=== PATIENT | male | born 1980 | race Caucasian/White ===

== ENCOUNTER 2019-02-05 19:17 | Inpatient (IN) | payer MEDICARE, OTHER ==
[~2019-02-05] VITALS: Ht 175.3 cm; Wt 77.6 kg
[~2019-02-05 19:17] MED LIST: ETOMIDATE 2 MG/ML 10 ML VIAL IVP ONE; ROCURONIUM BROMIDE 10 MG/ML 5 ML VIAL IVP ONE
[2019-02-05 20:00] LABS: BASOPHILS % (AUTO) 0.7 % (0.0-2.0); EOSINOPHILS % (AUTO) 1.2 % (1.0-6.0); HEMATOCRIT 48.2 % (41-53); HEMOGLOBIN 16.2 g/dL (13.5-17.5); LYMPHOCYTES # (AUTO) 1.6 K/uL (1.0-4.8); LYMPHOCYTES % (AUTO) 24.9 % (22.0-44.0); MEAN CORPUSCULAR HEMOGLOBIN 30.9 pg (26.0-34.0); MEAN CORPUSCULAR HGB CONC 33.7 G/dL (31.0-37.0); MEAN CORPUSCULAR VOLUME 91 fL (80-100); MONOCYTES # (AUTO) 0.4 K/uL (0.1-1.0); NEUTROPHILS # (AUTO) 4.3 K/uL (1.8-7.7); NEUTROPHILS % (AUTO) 67.2 % (40.0-70.0); PLATELET COUNT (AUTO) 345 K/uL (150-450); RED BLOOD CELL COUNT(AUTO) 5.27 MIL/uL (4.50-5.90); RED CELL DISTRIBUTION WIDTH 13.7 % (11.5-14.5)
[2019-02-05 20:18] LABS: ANION GAP 12 mmol/L (8-16); CALCIUM, TOTAL 9.1 mg/dL (8.8-10.5); CARBON DIOXIDE 28 mmol/L (22-29); CHLORIDE 103 mmol/L (98-107); CREATININE 0.93 mg/dL (0.60-1.30); GLOMERULAR FILTR. RATE CALC > 60 mL/min (>60); GLUCOSE,RANDOM 146 mg/dL (70-110); POTASSIUM 3.4 mmol/L (3.5-5.1); SODIUM SERUM 143 mmol/L (136-145); UREA NITROGEN, BLOOD 9 mg/dL (7-18)
[2019-02-05] MEDS ORDERED: CLOZ100 PO (20:20)
[2019-02-05 20:23] LABS: ALANINE AMINOTRANSFERASE 43 U/L (12-78); ALBUMIN 4.2 g/dL (3.4-5.0); ALKALINE PHOSPHATASE 150 U/L (46-116); ASPARTATE AMINOTRANSFERASE 24 U/L (15-37); BILIRUBIN,TOTAL 0.2 mg/dL (0.1-1.0); TOTAL PROTEIN, SERUM 7.7 g/dL (6.4-8.2)
[2019-02-05 20:47] LABS: ACETAMINOPHEN < 2 mcg/mL (10-30); SALICYLATE < 2.8 mg/dL (2.8-20.0)
[2019-02-05] MEDS ORDERED: SODIUM BICARBONATE 150 MEQ in DEXTROSE 5%-WATER 1,000 ML IV ONE (21:15)
[2019-02-05 21:18] LABS: AMPHET/METH SCREEN,URINE NEGATIVE (NEGATIVE); BARBITURATE SCREEN, URINE NEGATIVE (NEGATIVE); BENZODIAZEPINES SCREEN,URINE NEGATIVE (NEGATIVE); CANNABINOID SCREEN,URINE NEGATIVE (NEGATIVE); COCAINE SCREEN,URINE NEGATIVE (NEGATIVE); METHADONE SCREEN, URINE NEGATIVE (NEGATIVE); OPIATE SCREEN,URINE NEGATIVE (NEGATIVE)
[2019-02-05 21:20] LABS: PHENCYCLIDINE SCREEN,URINE NEGATIVE (NEGATIVE)
[2019-02-05] MEDS ORDERED: DiphenhydrAMINE HCL 50 MG/ML VIAL IVP STA (21:20)
[2019-02-05] MEDS ORDERED: ONDANSETRON HCL 4 MG/2 ML VIAL IVP PRN ×2 (21:30→21:45)
[2019-02-05] MEDS ORDERED: POTASSIUM CHLORIDE 20 MEQ ER TABLET PO PRN (21:45)
[2019-02-05] MEDS ORDERED: ACETAMINOPHEN 325 MG TABLET PO PRN (21:45)
[2019-02-05] MEDS ORDERED: MAGNESIUM SULFATE 2 GM/WATER 50 ML IV ONE (21:45)
[2019-02-05] MEDS ORDERED: POTASSIUM CHL 10 MEQ/WATER 50 ML IV ONE (21:45)
[2019-02-05 21:52] LABS: CREATINE KINASE, TOTAL ONLY 93 U/L (39-308)
[2019-02-05] MEDS ORDERED: RAPID SEQUENCE KIT [RSI] 1 EACH KIT ONE (23:19)
[2019-02-05] MEDS ORDERED: ROCURONIUM BROMIDE 10 MG/ML 5 ML VIAL ONE (23:20)
[2019-02-06] MEDS: PROPOFOL 1000 MG/ISO-OSM 100 ML IV PRN ×4 (00:21→19:00)
[2019-02-06] MEDS ORDERED: MIDAZOLAM HCL 2 MG/2 ML VIAL ONE (01:11)
[2019-02-06] MEDS ORDERED: FentaNYL CITRATE-PF 100 MCG/2 ML VIAL ONE (01:41)
[2019-02-06] MEDS ORDERED: MIDAZOLAM HCL 2 MG/2 ML VIAL IVP ONE (01:45)
[2019-02-06] MEDS: POTASSIUM CHL 10 MEQ/WATER 50 ML IV PRN ×2 (02:09→03:11)
[2019-02-06] MEDS ORDERED: FentaNYL CITRATE-PF 100 MCG/2 ML VIAL IVP ONE (02:15)
[2019-02-06] MEDS ORDERED: DiphenhydrAMINE HCL 50 MG/ML VIAL IVP STA (03:50)
[2019-02-06 04:22] LABS: ABG BASE EXCESS -3.2 mmol/L (-2.0-3.0); ABG CARBOXYHEMOGLOBIN 0.8 % (0.0-1.5); ABG HCO3 22.4 mmol/L (22.0-26.0); ABG METHEMOGLOBIN 0.3 % (0.0-1.5); ABG OXYGEN CONTENT 20.2 mL/dL (15.0-23.0); ABG OXYHEMOGLOBIN 97.9 % (94.0-100.0); ABG PCO2 38 mmHg (35-45); ABG PH 7.381 (7.350-7.450); ABG TOTAL HEMOGLOBIN 14.5 G/dL (12.0-18.0); PO2, ARTERIAL BG 156.9 mmHg (92.0-100.0); SOURCE, BLOOD GAS ARTERIAL
[2019-02-06 04:23] LABS: O2 DEVICE,BLOOD GAS VENTILATOR (ROOM AIR); PEEP,BG 5 cm H2O; SITE, BLOOD GAS RT RADIAL; VT, ABG 500 ml
[2019-02-06 05:31] LABS: BASOPHILS % (AUTO) 0.2 % (0.0-2.0); EOSINOPHILS % (AUTO) 0.1 % (1.0-6.0); HEMATOCRIT 40.5 % (41-53); HEMOGLOBIN 13.5 g/dL (13.5-17.5); LYMPHOCYTES # (AUTO) 0.9 K/uL (1.0-4.8); LYMPHOCYTES % (AUTO) 5.4 % (22.0-44.0); MEAN CORPUSCULAR HEMOGLOBIN 30.4 pg (26.0-34.0); MEAN CORPUSCULAR HGB CONC 33.5 G/dL (31.0-37.0); MEAN CORPUSCULAR VOLUME 91 fL (80-100); PLATELET COUNT (AUTO) 307 K/uL (150-450); RED BLOOD CELL COUNT(AUTO) 4.46 MIL/uL (4.50-5.90); RED CELL DISTRIBUTION WIDTH 13.9 % (11.5-14.5)
[2019-02-06 05:34] LABS: ANION GAP 8 mmol/L (8-16); CALCIUM, TOTAL 7.9 mg/dL (8.8-10.5); CARBON DIOXIDE 26 mmol/L (22-29); CHLORIDE 107 mmol/L (98-107); CREATININE 0.89 mg/dL (0.60-1.30); GLOMERULAR FILTR. RATE CALC > 60 mL/min (>60); GLUCOSE,RANDOM 98 mg/dL (70-110); POTASSIUM 4.3 mmol/L (3.5-5.1); SALICYLATE < 2.8 mg/dL (2.8-20.0); SODIUM SERUM 141 mmol/L (136-145); UREA NITROGEN, BLOOD 9 mg/dL (7-18)
[2019-02-06 05:35] LABS: NEUTROPHILS % (AUTO) 88.3 % (40.0-70.0)
[2019-02-06 05:39] LABS: ALANINE AMINOTRANSFERASE 31 U/L (12-78); ALBUMIN 3.3 g/dL (3.4-5.0); ALKALINE PHOSPHATASE 120 U/L (46-116); ASPARTATE AMINOTRANSFERASE 21 U/L (15-37); BILIRUBIN,TOTAL 0.2 mg/dL (0.1-1.0)
[2019-02-06 05:45] LABS: ACETAMINOPHEN < 2 mcg/mL (10-30)
[2019-02-06] MEDS ORDERED: MAGNESIUM SULFATE 4 GM/WATER 100 ML IV PRN (06:00)
[2019-02-06] MEDS ORDERED: MAGNESIUM SULFATE 2 GM/WATER 50 ML IV PRN (06:00)
[2019-02-06] MEDS: MIDAZOLAM HCL 100 MG in DEXTROSE 5%-WATER 180 ML IV PRN (07:48)
[2019-02-06] MEDS: FAMOTIDINE 20 MG TABLET PO SCH (08:14)
[2019-02-06] MEDS: DOCUSATE SODIUM 100 MG CAPSULE PO SCH ×2 (08:14→21:57)
[2019-02-06] MEDS ORDERED: PROPOFOL 1000 MG/ISO-OSM 100 ML IV PRN (10:00)
[2019-02-06 10:45] VITALS: BP 99/72
[2019-02-06 12:00] VITALS: BP 107/66
[2019-02-06] MEDS: DEXTROSE 5%-0.45% SODIUM CHL 1,000 ML IV SCH (15:53)
[2019-02-06 16:00] VITALS: BP 101/63
[2019-02-06 20:00] VITALS: BP 107/62
[2019-02-07] VITALS: BP 125/64
[2019-02-07] MEDS: PROPOFOL 1000 MG/ISO-OSM 100 ML IV PRN ×6 (00:15→20:15)
[2019-02-07 04:00] VITALS: BP 123/81
[2019-02-07] MEDS: DEXTROSE 5%-0.45% SODIUM CHL 1,000 ML IV SCH ×2 (04:31→17:58)
[2019-02-07 05:31] LABS: BASOPHILS % (AUTO) 0.3 % (0.0-2.0); EOSINOPHILS % (AUTO) 1.3 % (1.0-6.0); HEMATOCRIT 42.7 % (41-53); HEMOGLOBIN 14.1 g/dL (13.5-17.5); LYMPHOCYTES % (AUTO) 10.3 % (22.0-44.0); MEAN CORPUSCULAR HEMOGLOBIN 30.5 pg (26.0-34.0); MEAN CORPUSCULAR HGB CONC 32.9 G/dL (31.0-37.0); MEAN CORPUSCULAR VOLUME 93 fL (80-100); MONOCYTES % (AUTO) 10.2 % (2.0-9.0); NEUTROPHILS # (AUTO) 7.7 K/uL (1.8-7.7); NEUTROPHILS % (AUTO) 77.9 % (40.0-70.0); PLATELET COUNT (AUTO) 265 K/uL (150-450); RED BLOOD CELL COUNT(AUTO) 4.61 MIL/uL (4.50-5.90); RED CELL DISTRIBUTION WIDTH 13.6 % (11.5-14.5)
[2019-02-07 05:39] LABS: ANION GAP 6 mmol/L (8-16); CALCIUM, TOTAL 8.6 mg/dL (8.8-10.5); CARBON DIOXIDE 29 mmol/L (22-29); CHLORIDE 106 mmol/L (98-107); GLOMERULAR FILTR. RATE CALC > 60 mL/min (>60); GLUCOSE,RANDOM 160 mg/dL (70-110); POTASSIUM 3.8 mmol/L (3.5-5.1); SODIUM SERUM 141 mmol/L (136-145); UREA NITROGEN, BLOOD 6 mg/dL (7-18)
[2019-02-07 08:00] VITALS: BP 110/65
[2019-02-07] MEDS: FAMOTIDINE 20 MG TABLET PO SCH (09:02)
[2019-02-07] MEDS: DOCUSATE SODIUM 100 MG CAPSULE PO SCH ×2 (09:02→21:27)
[2019-02-07 12:00] VITALS: BP 137/89
[2019-02-07 16:00] VITALS: BP 140/82
[2019-02-07] MEDS: MIDAZOLAM HCL 100 MG in DEXTROSE 5%-WATER 180 ML IV PRN (16:23)
[2019-02-07] MEDS: ACETAMINOPHEN 325 MG TABLET PO PRN (17:35)
[2019-02-07 20:00] VITALS: BP 119/70
[2019-02-08] VITALS: BP 120/71
[2019-02-08] MEDS: PROPOFOL 1000 MG/ISO-OSM 100 ML IV PRN ×4 (00:12→11:02)
[2019-02-08 04:00] VITALS: BP 115/65
[2019-02-08 05:53] LABS: ANION GAP 5 mmol/L (8-16); CALCIUM, TOTAL 8.6 mg/dL (8.8-10.5); CARBON DIOXIDE 30 mmol/L (22-29); CHLORIDE 103 mmol/L (98-107); CREATININE 0.52 mg/dL (0.60-1.30); GLOMERULAR FILTR. RATE CALC > 60 mL/min (>60); GLUCOSE,RANDOM 106 mg/dL (70-110); POTASSIUM 4.1 mmol/L (3.5-5.1); SODIUM SERUM 138 mmol/L (136-145); UREA NITROGEN, BLOOD 5 mg/dL (7-18)
[2019-02-08] MEDS: DEXTROSE 5%-0.45% SODIUM CHL 1,000 ML IV SCH (06:56)
[2019-02-08 08:00] VITALS: BP 127/68
[2019-02-08] MEDS: DOCUSATE SODIUM 100 MG CAPSULE PO SCH ×2 (08:00→20:53)
[2019-02-08] MEDS: FAMOTIDINE 20 MG TABLET PO SCH (08:00)
[2019-02-08 08:18] LABS: ABG BASE EXCESS 1.9 mmol/L (-2.0-3.0); ABG CARBOXYHEMOGLOBIN 0.7 % (0.0-1.5); ABG HCO3 25.9 mmol/L (22.0-26.0); ABG METHEMOGLOBIN 0.3 % (0.0-1.5); ABG OXYGEN CONTENT 20.3 mL/dL (15.0-23.0); ABG OXYGEN SATURATION 98.9 % (95.0-98.0); ABG OXYHEMOGLOBIN 97.9 % (94.0-100.0); ABG PCO2 44 mmHg (35-45); ABG PH 7.402 (7.350-7.450); ABG TOTAL HEMOGLOBIN 14.6 G/dL (12.0-18.0); PO2, ARTERIAL BG 147.2 mmHg (92.0-100.0); SOURCE, BLOOD GAS ARTERIAL; TEMPERATURE, FAHRENHEIT, BG 99.5 FAHREN (96.0-98.6)
[2019-02-08 08:19] LABS: O2 DEVICE,BLOOD GAS VENTILATOR (ROOM AIR); PEEP,BG 5 cm H2O; SITE, BLOOD GAS RT RADIAL; SPONTANEOUS VT, BG 497 ml; VT, ABG 500 ml
[2019-02-08 10:12] LABS: BASOPHILS % (AUTO) 0.1 % (0.0-2.0); EOSINOPHILS % (AUTO) 1.8 % (1.0-6.0); HEMATOCRIT 43.8 % (41-53); HEMOGLOBIN 14.7 g/dL (13.5-17.5); LYMPHOCYTES # (AUTO) 0.7 K/uL (1.0-4.8); LYMPHOCYTES % (AUTO) 7.4 % (22.0-44.0); MEAN CORPUSCULAR HEMOGLOBIN 31.1 pg (26.0-34.0); MEAN CORPUSCULAR HGB CONC 33.6 G/dL (31.0-37.0); MEAN CORPUSCULAR VOLUME 93 fL (80-100); MONOCYTES # (AUTO) 0.7 K/uL (0.1-1.0); MONOCYTES % (AUTO) 7.5 % (2.0-9.0); NEUTROPHILS # (AUTO) 8.2 K/uL (1.8-7.7); NEUTROPHILS % (AUTO) 83.2 % (40.0-70.0); PLATELET COUNT (AUTO) 257 K/uL (150-450); RED BLOOD CELL COUNT(AUTO) 4.73 MIL/uL (4.50-5.90); RED CELL DISTRIBUTION WIDTH 13.6 % (11.5-14.5)
[2019-02-08 12:00] VITALS: BP 124/76
[2019-02-08] MEDS: ACETAMINOPHEN 325 MG TABLET PO PRN (12:01)
[2019-02-08 13:47] LABS: ABG A-A DIFF O2 79.1 mmHg (10-20.0); ABG BASE EXCESS 4.5 mmol/L (-2.0-3.0); ABG METHEMOGLOBIN 0.3 % (0.0-1.5); ABG OXYGEN CONTENT 20.1 mL/dL (15.0-23.0); ABG OXYGEN SATURATION 98.6 % (95.0-98.0); ABG OXYHEMOGLOBIN 97.3 % (94.0-100.0); ABG PCO2 44 mmHg (35-45); ABG PH 7.434 (7.350-7.450); ABG TOTAL HEMOGLOBIN 14.6 G/dL (12.0-18.0); O2 DEVICE,BLOOD GAS VENTILATOR (ROOM AIR); PO2, ARTERIAL BG 118.8 mmHg (92.0-100.0); SITE, BLOOD GAS RT RADIAL; SOURCE, BLOOD GAS ARTERIAL; TEMPERATURE, FAHRENHEIT, BG 99.5 FAHREN (96.0-98.6)
[2019-02-08 13:48] LABS: PEEP,BG 0 cm H2O; PRESSURE SUPPORT, BG 10 cm H2O; SPONTANEOUS VT, BG 517 ml; VENT MODE, BG SPONTANEOUS (ROOM AIR)
[2019-02-08] MEDS: PIPERACILLIN/TAZO 3.375 GM/D5W 50 ML IV SCH ×2 (14:58→21:35)
[2019-02-08 16:00] VITALS: BP 132/76
[2019-02-08] MEDS ORDERED: LORazepam 2 MG/ML VIAL IVP PRN (17:00)
[2019-02-08] MEDS: NICOTINE 21 MG/24 HOUR PATCH TD SCH (19:29)
[2019-02-08] MEDS: LORazepam 2 MG TABLET PO PRN ×2 (19:30→23:02)
[2019-02-08 20:01] VITALS: BP 131/72
[2019-02-09 00:02] VITALS: BP 134/73
[2019-02-09] MEDS: PIPERACILLIN/TAZO 3.375 GM/D5W 50 ML IV SCH ×4 (02:53→20:27)
[2019-02-09] MEDS: LORazepam 2 MG TABLET PO PRN ×4 (02:58→20:26)
[2019-02-09 04:21] VITALS: BP 118/88
[2019-02-09 08:10] VITALS: BP 124/74
[2019-02-09] MEDS: FAMOTIDINE 20 MG TABLET PO SCH (09:49)
[2019-02-09] MEDS: NICOTINE 21 MG/24 HOUR PATCH TD SCH (09:49)
[2019-02-09] MEDS: DOCUSATE SODIUM 100 MG CAPSULE PO SCH ×2 (09:49→20:27)
[2019-02-09 11:21] VITALS: BP 125/64
[2019-02-09] MEDS ORDERED: PHENYTOIN SODIUM 1,000 MG in SODIUM CHLORIDE 0.9% 150 ML IV ONE (12:45)
[2019-02-09] MEDS ORDERED: LACOSAMIDE 100 MG TABLET PO ONE (12:45)
[2019-02-09] MEDS ORDERED: VANCOMYCIN HCL 1 GM/D5% WATER 200 ML IV ONE (13:00)
[2019-02-09] MEDS: VENLAFAXINE HCL 75 MG ER CAPSULE PO SCH (13:27)
[2019-02-09] MEDS: CloZAPine 100 MG TABLET PO SCH (13:27)
[2019-02-09 16:04] VITALS: BP 121/83
[2019-02-09 20:14] VITALS: BP 120/64
[2019-02-09] MEDS: LACOSAMIDE 100 MG TABLET PO SCH (20:27)
[2019-02-09] MEDS: ACETAMINOPHEN 325 MG TABLET PO PRN (20:27)
[2019-02-09] MEDS: VANCOMYCIN HCL 1 GM/D5% WATER 200 ML IV SCH (23:24)
[2019-02-10] MEDS: PIPERACILLIN/TAZO 3.375 GM/D5W 50 ML IV SCH ×3 (02:53→13:59)
[2019-02-10 03:10] VITALS: BP 106/86
[2019-02-10 06:37] LABS: ANION GAP 5 mmol/L (8-16); CALCIUM, TOTAL 8.8 mg/dL (8.8-10.5); CARBON DIOXIDE 29 mmol/L (22-29); CHLORIDE 108 mmol/L (98-107); CREATININE 0.62 mg/dL (0.60-1.30); GLOMERULAR FILTR. RATE CALC > 60 mL/min (>60); GLUCOSE,RANDOM 90 mg/dL (70-110); POTASSIUM 3.5 mmol/L (3.5-5.1); SODIUM SERUM 142 mmol/L (136-145); UREA NITROGEN, BLOOD 6 mg/dL (7-18)
[2019-02-10] MEDS: VANCOMYCIN HCL 1 GM/D5% WATER 200 ML IV SCH ×2 (06:44→14:52)
[2019-02-10 07:39] VITALS: BP 121/78
[2019-02-10] MEDS: LACOSAMIDE 100 MG TABLET PO SCH (08:32)
[2019-02-10] MEDS: FAMOTIDINE 20 MG TABLET PO SCH (08:32)
[2019-02-10] MEDS: VENLAFAXINE HCL 75 MG ER CAPSULE PO SCH (08:33)
[2019-02-10] MEDS: CloZAPine 100 MG TABLET PO SCH (08:33)
[2019-02-10] MEDS: NICOTINE 21 MG/24 HOUR PATCH TD SCH (08:35)
[2019-02-10] MEDS: DOCUSATE SODIUM 100 MG CAPSULE PO SCH (08:35)
[2019-02-10] MEDS: LORazepam 2 MG TABLET PO PRN ×2 (08:41→13:59)
[2019-02-10 11:00] VITALS: BP 128/81
[2019-02-10] MEDS ORDERED: LACO100 PO (17:48)
[2019-02-10] MEDS ORDERED: NICO-704 TD (17:49)
[2019-02-10] MEDS ORDERED: VENL-68 PO (17:51)
[2019-02-10] MEDS ORDERED: BACTDSB PO (17:55)
== END 2019-02-10 18:14 | disposition home or self-care (01) | DRG 917 ==
LOC: EMS 19:21 → ICU 02-06 07:11 → 6N 02-08 21:04
PROVIDERS: ADMIT Internal Medicine; ATTEND Internal Medicine
PROC: 5A1945Z Respiratory Ventilation, 24-96 Consecutive Hours (ICD-10-PCS; principal; 2019-02-06)
PROC: 0BH17EZ Insertion of Endotracheal Airway into Trachea, Via Natural or Artificial Opening (ICD-10-PCS; 2019-02-06)
DX: T42.4X2A Poisoning by benzodiazepines, intentional self-harm, initial encounter (principal); A41.9 Sepsis, unspecified organism; G93.41 Metabolic encephalopathy; J96.00 Acute respiratory failure, unspecified whether with hypoxia or hypercapnia; J15.211 Pneumonia due to Methicillin susceptible Staphylococcus aureus; F20.0 Paranoid schizophrenia; F32.9 Major depressive disorder, single episode, unspecified; I10 Essential (primary) hypertension; F41.9 Anxiety disorder, unspecified; Y92.89 Other specified places as the place of occurrence of the external cause; F12.90 Cannabis use, unspecified, uncomplicated; F15.90 Other stimulant use, unspecified, uncomplicated; Z79.899 Other long term (current) drug therapy
CPT/HCPCS: 36600; 82805; 83735; 87040; 87070; 87081; 87205; 93005; 94002; 94003; 96365; 96375; 99291; G0378; G0480; G0481; J1165; J1200; J2060; J2250; J2405; J2543; J2704; J3010; J3370; J3475; J3480; J3490; J7050; J7060

== ENCOUNTER 2019-04-24 13:43 | Inpatient (IN) | payer MEDICARE, MEDICAID ==
[~2019-04-24] VITALS: Ht 172.7 cm; Wt 77.7 kg
[~2019-04-24 13:43] MED LIST changes: +BACTDSB PO; +CLOZ100 PO; -ETOMIDATE 2 MG/ML 10 ML VIAL IVP ONE; +LACO100 PO; +NICO-704 TD; -ROCURONIUM BROMIDE 10 MG/ML 5 ML VIAL IVP ONE; +VENL-68 PO
[2019-04-24] MEDS ORDERED: PHENY100 PO (14:28)
[2019-04-24] MEDS ORDERED: LACO200T2 PO (14:28)
[2019-04-24] MEDS ORDERED: VENL-67 PO (14:28)
[2019-04-24] MEDS ORDERED: QUET200T29 PO (14:28)
[2019-04-24] MEDS ORDERED: BUSP10TA23 PO (14:28)
[2019-04-24] MEDS ORDERED: CLOZ100T31 PO (14:28)
[2019-04-24] MEDS ORDERED: METO50 PO (14:28)
[2019-04-24] MEDS ORDERED: SODIUM CHLORIDE 0.9% 1,000 ML IV ONE (14:45)
[2019-04-24 15:11] LABS: BASOPHILS % (AUTO) 0.7 % (0.0-2.0); HEMATOCRIT 44.8 % (41-53); HEMOGLOBIN 14.9 g/dL (13.5-17.5); LYMPHOCYTES # (AUTO) 1.3 K/uL (1.0-4.8); MEAN CORPUSCULAR HEMOGLOBIN 30.8 pg (26.0-34.0); MEAN CORPUSCULAR HGB CONC 33.3 G/dL (31.0-37.0); MEAN CORPUSCULAR VOLUME 93 fL (80-100); MONOCYTES # (AUTO) 0.4 K/uL (0.1-1.0); MONOCYTES % (AUTO) 9.3 % (2.0-9.0); NEUTROPHILS # (AUTO) 2.7 K/uL (1.8-7.7); PLATELET COUNT (AUTO) 394 K/uL (150-450); RED BLOOD CELL COUNT(AUTO) 4.83 MIL/uL (4.50-5.90)
[2019-04-24 15:23] LABS: APPEARANCE,URINE CLEAR (CLEAR); BILIRUBIN,URINE NEGATIVE (NEGATIVE); GLUCOSE, URINE (UA) NEGATIVE (NEGATIVE); KETONES,URINE NEGATIVE (NEGATIVE); LEUKOCYTE ESTERASE ,URINE NEGATIVE (NEGATIVE); NITRATE,URINE NEGATIVE (NEGATIVE); OCCULT BLOOD,URINE NEGATIVE (NEGATIVE); PH,URINE 7.5 (5.0-8.0); PROTEIN,URINE NEGATIVE (NEGATIVE)
[2019-04-24 15:37] LABS: AMPHET/METH SCREEN,URINE NEGATIVE (NEGATIVE); BARBITURATE SCREEN, URINE NEGATIVE (NEGATIVE); BENZODIAZEPINES SCREEN,URINE NEGATIVE (NEGATIVE); CANNABINOID SCREEN,URINE NEGATIVE (NEGATIVE); COCAINE SCREEN,URINE NEGATIVE (NEGATIVE); METHADONE SCREEN, URINE NEGATIVE (NEGATIVE); OPIATE SCREEN,URINE NEGATIVE (NEGATIVE)
[2019-04-24 15:38] LABS: PHENCYCLIDINE SCREEN,URINE NEGATIVE (NEGATIVE)
[2019-04-24 15:44] LABS: ANION GAP 10 mmol/L (8-16); CALCIUM, TOTAL 9.3 mg/dL (8.8-10.5); CARBON DIOXIDE 28 mmol/L (22-29); CHLORIDE 106 mmol/L (98-107); CREATININE 0.88 mg/dL (0.60-1.30); GLOMERULAR FILTR. RATE CALC > 60 mL/min (>60); GLUCOSE,RANDOM 90 mg/dL (70-110); POTASSIUM 3.9 mmol/L (3.5-5.1); SODIUM SERUM 144 mmol/L (136-145); UREA NITROGEN, BLOOD 8 mg/dL (7-18)
[2019-04-24 15:51] LABS: ALANINE AMINOTRANSFERASE 25 U/L (12-78); ALBUMIN 3.8 g/dL (3.4-5.0); ALKALINE PHOSPHATASE 123 U/L (46-116); ASPARTATE AMINOTRANSFERASE 16 U/L (15-37); BILIRUBIN,TOTAL 0.3 mg/dL (0.1-1.0); PHENYTOIN (DILANTIN) 0.9 mcg/mL (10.0-20.0); TOTAL PROTEIN, SERUM 7.2 g/dL (6.4-8.2)
[2019-04-24] MEDS ORDERED: LORazepam 2 MG/ML VIAL IVP ONE (16:45)
[2019-04-24 23:15] VITALS: BP 141/83
[2019-04-24] MEDS ORDERED: INFLUENZA VIRUS VACCINE QVS 2019-20 (3YR+)/PF 60 MCG/0.5 ML SYRINGE IM ONE (23:45)
[2019-04-25] MEDS: LORazepam 2 MG TABLET PO PRN ×2 (06:06→17:01)
[2019-04-25] MEDS: HALOPERIDOL 5 MG TABLET PO PRN ×2 (06:11→17:37)
[2019-04-25 06:15] VITALS: BP 125/75
[2019-04-25] MEDS ORDERED: ONDANSETRON HCL 4 MG TABLET PO PRN (08:00)
[2019-04-25] MEDS ORDERED: MAGNESIUM HYDROXIDE SUSPENSION 30 ML UDCUP PO PRN (08:00)
[2019-04-25] MEDS ORDERED: ACETAMINOPHEN 325 MG TABLET PO PRN (08:00)
[2019-04-25] MEDS ORDERED: MAG HYDROX/AL HYDROX/SIMETH ES 30 ML SUSPENSION UDCUP PO PRN (08:00)
[2019-04-25] MEDS ORDERED: LOPERAMIDE HCL 2 MG CAPSULE PO PRN (08:00)
[2019-04-25] MEDS ORDERED: ALBUTEROL SULFATE HFA 90 MCG/PUFF 8 GM INHALER IH PRN (08:00)
[2019-04-25] MEDS ORDERED: PETROLATUM,WHITE 28 GM JELLY TP PRN (08:00)
[2019-04-25] MEDS ORDERED: BENZOCAINE/MENTHOL LOZENGE MM PRN (08:00)
[2019-04-25] MEDS ORDERED: BACITRACIN 28.4 GM OINTMENT TP PRN (08:00)
[2019-04-25] MEDS ORDERED: IBUPROFEN 600 MG TABLET PO PRN (08:00)
[2019-04-25] MEDS ORDERED: CloNIDine HCL 0.1 MG TABLET PO PRN (08:00)
[2019-04-25] MEDS ORDERED: DOCUSATE SODIUM 100 MG CAPSULE PO PRN (08:00)
[2019-04-25] MEDS ORDERED: OMEPRAZOLE 20 MG CAPSULE PO PRN (08:00)
[2019-04-25 08:32] VITALS: BP 112/73
[2019-04-25 08:54] LABS: CHOL/HDL RATIO 3.2 (4.2-7.3)
[2019-04-25] MEDS: METOPROLOL TARTRATE 25 MG TABLET PO SCH ×2 (09:00→16:30)
[2019-04-25] MEDS ORDERED: METOPROLOL TARTRATE 50 MG TABLET PO SCH (09:00)
[2019-04-25] MEDS: NICOTINE 21 MG/24 HOUR PATCH TD SCH (09:00)
[2019-04-25 16:20] VITALS: BP 112/69
[2019-04-25] MEDS: ZOLPIDEM TARTRATE 10 MG TABLET PO PRN (20:51)
[2019-04-26 06:08] VITALS: BP 103/65
[2019-04-26] MEDS: HALOPERIDOL 5 MG TABLET PO PRN ×2 (06:43→18:54)
[2019-04-26] MEDS: LORazepam 2 MG TABLET PO PRN ×2 (07:20→17:24)
[2019-04-26 08:31] VITALS: BP 120/79
[2019-04-26] MEDS: NICOTINE 21 MG/24 HOUR PATCH TD SCH (09:00)
[2019-04-26] MEDS: CloZAPine 100 MG TABLET PO SCH (09:07)
[2019-04-26] MEDS: METOPROLOL TARTRATE 25 MG TABLET PO SCH ×2 (09:07→16:15)
[2019-04-26] MEDS ORDERED: CLOZ100 PO ×2 (13:40)
[2019-04-26] MEDS ORDERED: METO25 PO (13:40)
[2019-04-26 16:26] VITALS: BP 140/79
[2019-04-26] MEDS ORDERED: CloZAPine 100 MG TABLET PO SCH (21:00)
[2019-04-26] MEDS: ZOLPIDEM TARTRATE 10 MG TABLET PO PRN (21:08)
[2019-04-27 00:38] VITALS: BP 142/108
[2019-04-27 08:05] VITALS: BP 126/74
[2019-04-27] MEDS: NICOTINE 21 MG/24 HOUR PATCH TD SCH (09:00)
[2019-04-27] MEDS: METOPROLOL TARTRATE 25 MG TABLET PO SCH (09:16)
[2019-04-27] MEDS: CloZAPine 100 MG TABLET PO SCH (09:16)
== END 2019-04-27 14:00 | disposition home or self-care (01) | DRG 885 ==
LOC: EMS 13:45 → B2X 20:00
PROVIDERS: ADMIT Psychiatry & Neurology Psychiatry; ATTEND Psychiatry & Neurology Psychiatry
DX: F25.9 Schizoaffective disorder, unspecified (principal); F41.9 Anxiety disorder, unspecified; G47.00 Insomnia, unspecified; I10 Essential (primary) hypertension; K59.00 Constipation, unspecified
CPT/HCPCS: G0480; J2060; J7030

== ENCOUNTER 2019-08-27 10:29 | Inpatient (IN) | payer MEDICARE, MEDICAID ==
[~2019-08-27 10:29] MED LIST changes: -BACTDSB PO; -CLOZ100 PO; +CLOZ100T32 PO; -LACO100 PO; +METO25 PO; -NICO-704 TD; -VENL-68 PO
[2019-08-27] MEDS ORDERED: BUSP15 PO (15:49)
[2019-08-27] MEDS ORDERED: PHENY100 PO (15:49)
[2019-08-27] MEDS ORDERED: VENL-68 PO (15:49)
[2019-08-27] MEDS ORDERED: QUET200T PO (15:49)
[2019-08-27] MEDS ORDERED: LACO100 PO (15:49)
[2019-08-27] MEDS ORDERED: ZOLPIDEM TARTRATE 10 MG TABLET PO PRN (16:00)
[2019-08-27] MEDS ORDERED: HALOPERIDOL 5 MG TABLET PO PRN (16:00)
[2019-08-27] MEDS ORDERED: LORazepam 2 MG TABLET PO PRN (16:00)
[2019-08-27 17:05] VITALS: BP 105/74
[2019-08-27] MEDS: LORazepam 2 MG TABLET PO PRN (17:14)
[2019-08-27] MEDS ORDERED: PNEUMOCOCCAL VACCINE POLYVALENT 0.5 ML VIAL [PPSV23] IM ONE (17:30)
[2019-08-27] MEDS ORDERED: PETROLATUM,WHITE 28 GM JELLY TP PRN (21:45)
[2019-08-27] MEDS ORDERED: MAG HYDROX/AL HYDROX/SIMETH ES 30 ML SUSPENSION UDCUP PO PRN (21:45)
[2019-08-27] MEDS ORDERED: OMEPRAZOLE 20 MG CAPSULE PO PRN (21:45)
[2019-08-27] MEDS ORDERED: ALBUTEROL SULFATE HFA 90 MCG/PUFF 8 GM INHALER IH PRN (21:45)
[2019-08-27] MEDS ORDERED: IBUPROFEN 600 MG TABLET PO PRN (21:45)
[2019-08-27] MEDS ORDERED: MAGNESIUM HYDROXIDE SUSPENSION 30 ML UDCUP PO PRN (21:45)
[2019-08-27] MEDS ORDERED: LOPERAMIDE HCL 2 MG CAPSULE PO PRN (21:45)
[2019-08-27] MEDS ORDERED: ACETAMINOPHEN 325 MG TABLET PO PRN (21:45)
[2019-08-27] MEDS ORDERED: BENZOCAINE/MENTHOL LOZENGE MM PRN (21:45)
[2019-08-27] MEDS ORDERED: DOCUSATE SODIUM 100 MG CAPSULE PO PRN (21:45)
[2019-08-27] MEDS ORDERED: BACITRACIN 28.4 GM OINTMENT TP PRN (21:45)
[2019-08-27] MEDS ORDERED: CloNIDine HCL 0.1 MG TABLET PO PRN (21:45)
[2019-08-27] MEDS ORDERED: ONDANSETRON HCL 4 MG TABLET PO PRN (21:45)
[2019-08-28 00:07] VITALS: BP 114/57
[2019-08-28] MEDS: LORazepam 2 MG TABLET PO PRN ×2 (00:13→08:55)
[2019-08-28 07:55] LABS: BASOPHILS % (AUTO) 0.7 % (0.0-2.0); EOSINOPHILS % (AUTO) 3.2 % (1.0-6.0); HEMATOCRIT 44.7 % (41-53); HEMOGLOBIN 14.7 g/dL (13.5-17.5); LYMPHOCYTES # (AUTO) 1.7 K/uL (1.0-4.8); LYMPHOCYTES % (AUTO) 39.9 % (22.0-44.0); MEAN CORPUSCULAR HEMOGLOBIN 30.5 pg (26.0-34.0); MEAN CORPUSCULAR HGB CONC 32.9 G/dL (31.0-37.0); MEAN CORPUSCULAR VOLUME 93 fL (80-100); MONOCYTES # (AUTO) 0.3 K/uL (0.1-1.0); MONOCYTES % (AUTO) 8.2 % (2.0-9.0); PLATELET COUNT (AUTO) 314 K/uL (150-450); RED BLOOD CELL COUNT(AUTO) 4.81 MIL/uL (4.50-5.90); RED CELL DISTRIBUTION WIDTH 13.4 % (11.5-14.5)
[2019-08-28 08:10] VITALS: BP 116/70
[2019-08-28 08:20] LABS: HEMOGLOBIN A1C 4.2 % (3.8-5.6)
[2019-08-28 08:25] LABS: ALANINE AMINOTRANSFERASE 19 U/L (12-78); ALBUMIN 3.8 g/dL (3.4-5.0); ALKALINE PHOSPHATASE 102 U/L (46-116); ANION GAP 8 mmol/L (8-16); ASPARTATE AMINOTRANSFERASE 11 U/L (15-37); BILIRUBIN,TOTAL 0.4 mg/dL (0.1-1.0); CALCIUM, TOTAL 8.9 mg/dL (8.8-10.5); CARBON DIOXIDE 27 mmol/L (22-29); CHLORIDE 104 mmol/L (98-107); CHOL/HDL RATIO 3.1 (4.2-7.3); CHOLESTEROL 126 mg/dL (131-200); CREATININE 0.77 mg/dL (0.60-1.30); FREE T4 (FREE THYROXINE) 0.94 ng/dL (0.76-1.46); GLOMERULAR FILTR. RATE CALC > 60 mL/min (>60); GLUCOSE,RANDOM 76 mg/dL (70-110); HDL CHOLESTEROL 41 mg/dL (40-60); LDL CHOL (CALC.) 69 mg/dL (0-130); SODIUM SERUM 139 mmol/L (136-145); THYROID STIMULATING HORMONE 2.38 uIU/mL (0.36-3.74); TOTAL PROTEIN, SERUM 7.2 g/dL (6.4-8.2); TRIGLYCERIDES 81 mg/dL (15-150); UREA NITROGEN, BLOOD 15 mg/dL (7-18)
[2019-08-28] MEDS: LACOSAMIDE 100 MG TABLET PO SCH ×2 (08:41→16:32)
[2019-08-28] MEDS: PHENYTOIN SODIUM 100 MG ER CAPSULE PO SCH (08:41)
[2019-08-28] MEDS: HALOPERIDOL 5 MG TABLET PO PRN (12:06)
[2019-08-28] MEDS: VENLAFAXINE HCL 150 MG ER CAPSULE PO SCH (14:28)
[2019-08-28 16:17] VITALS: BP 137/65
[2019-08-28] MEDS: BusPIRone HCL 15 MG TABLET PO SCH (16:32)
[2019-08-28] MEDS: QUEtiapine FUMARATE 200 MG TABLET PO SCH (20:23)
[2019-08-28] MEDS: CloZAPine 100 MG TABLET PO SCH (20:23)
[2019-08-29] VITALS (11 sets, daily range): BP systolic 110–125; BP diastolic 70–83
[2019-08-29] MEDS: CloZAPine 100 MG TABLET PO SCH ×2 (08:29→20:33)
[2019-08-29] MEDS: LACOSAMIDE 100 MG TABLET PO SCH ×2 (08:29→16:54)
[2019-08-29] MEDS: PHENYTOIN SODIUM 100 MG ER CAPSULE PO SCH (08:29)
[2019-08-29] MEDS: VENLAFAXINE HCL 150 MG ER CAPSULE PO SCH (08:29)
[2019-08-29 09:14] LABS: AMPHET/METH SCREEN,URINE NEGATIVE (NEGATIVE); BARBITURATE SCREEN, URINE NEGATIVE (NEGATIVE); BENZODIAZEPINES SCREEN,URINE NEGATIVE (NEGATIVE); CANNABINOID SCREEN,URINE NEGATIVE (NEGATIVE); COCAINE SCREEN,URINE NEGATIVE (NEGATIVE); METHADONE SCREEN, URINE NEGATIVE (NEGATIVE); OPIATE SCREEN,URINE NEGATIVE (NEGATIVE)
[2019-08-29 09:36] LABS: APPEARANCE,URINE CLEAR (CLEAR); BILIRUBIN,URINE NEGATIVE (NEGATIVE); GLUCOSE, URINE (UA) NEGATIVE (NEGATIVE); KETONES,URINE NEGATIVE (NEGATIVE); LEUKOCYTE ESTERASE ,URINE NEGATIVE (NEGATIVE); NITRATE,URINE NEGATIVE (NEGATIVE); OCCULT BLOOD,URINE NEGATIVE (NEGATIVE); UROBILINOGEN,URINE 0.2 mg/dL (<=1.0)
[2019-08-29 09:37] LABS: PROTEIN,URINE NEGATIVE (NEGATIVE)
[2019-08-29 09:48] LABS: PHENCYCLIDINE SCREEN,URINE NEGATIVE (NEGATIVE)
[2019-08-29] MEDS: BusPIRone HCL 15 MG TABLET PO SCH ×2 (10:55→16:55)
[2019-08-29] MEDS: QUEtiapine FUMARATE 200 MG TABLET PO SCH (20:34)
[2019-08-30 06:01] VITALS: BP 119/76
[2019-08-30 08:42] VITALS: BP 133/183
[2019-08-30] MEDS: LACOSAMIDE 100 MG TABLET PO SCH ×2 (09:01→17:13)
[2019-08-30] MEDS: BusPIRone HCL 15 MG TABLET PO SCH ×2 (09:01→17:13)
[2019-08-30] MEDS: PHENYTOIN SODIUM 100 MG ER CAPSULE PO SCH (09:01)
[2019-08-30] MEDS: CloZAPine 100 MG TABLET PO SCH ×2 (09:01→20:37)
[2019-08-30] MEDS: VENLAFAXINE HCL 150 MG ER CAPSULE PO SCH (09:01)
[2019-08-30 09:14] VITALS: BP 133/83
[2019-08-30 16:09] VITALS: BP 132/82
[2019-08-30] MEDS: QUEtiapine FUMARATE 200 MG TABLET PO SCH (20:37)
[2019-08-30] MEDS: LORazepam 2 MG TABLET PO PRN (22:13)
[2019-08-31 06:11] VITALS: BP 114/85
[2019-08-31] MEDS: BusPIRone HCL 15 MG TABLET PO SCH ×2 (09:17→16:34)
[2019-08-31] MEDS: CloZAPine 100 MG TABLET PO SCH ×2 (09:17→20:42)
[2019-08-31] MEDS: LACOSAMIDE 100 MG TABLET PO SCH ×2 (09:17→16:34)
[2019-08-31] MEDS: PHENYTOIN SODIUM 100 MG ER CAPSULE PO SCH (09:18)
[2019-08-31] MEDS: VENLAFAXINE HCL 150 MG ER CAPSULE PO SCH (09:19)
[2019-08-31 09:53] VITALS: BP 116/76
[2019-08-31 11:59] VITALS: BP 116/76
[2019-08-31] MEDS: LORazepam 2 MG TABLET PO PRN (13:58)
[2019-08-31 16:35] VITALS: BP 114/76
[2019-08-31] MEDS: QUEtiapine FUMARATE 200 MG TABLET PO SCH (20:42)
[2019-08-31] MEDS: ZOLPIDEM TARTRATE 10 MG TABLET PO PRN (21:39)
[2019-09-01 05:16] VITALS: BP 127/84
[2019-09-01 08:13] VITALS: BP 103/61
[2019-09-01] MEDS: BusPIRone HCL 15 MG TABLET PO SCH ×2 (08:13→16:33)
[2019-09-01] MEDS: PHENYTOIN SODIUM 100 MG ER CAPSULE PO SCH (08:13)
[2019-09-01] MEDS: CloZAPine 100 MG TABLET PO SCH ×2 (08:14→20:28)
[2019-09-01] MEDS: VENLAFAXINE HCL 150 MG ER CAPSULE PO SCH (08:14)
[2019-09-01] MEDS: LACOSAMIDE 100 MG TABLET PO SCH ×2 (08:18→16:33)
[2019-09-01] MEDS: LORazepam 2 MG TABLET PO PRN (09:11)
[2019-09-01 16:26] VITALS: BP 119/83
[2019-09-01] MEDS: QUEtiapine FUMARATE 200 MG TABLET PO SCH (20:28)
[2019-09-02] VITALS (7 sets, daily range): BP systolic 87–135; BP diastolic 48–84
[2019-09-02] MEDS: LACOSAMIDE 100 MG TABLET PO SCH ×2 (09:00→16:34)
[2019-09-02] MEDS: LORazepam 2 MG TABLET PO PRN ×2 (09:00→18:24)
[2019-09-02] MEDS: CloZAPine 100 MG TABLET PO SCH ×2 (09:00→20:31)
[2019-09-02] MEDS: BusPIRone HCL 15 MG TABLET PO SCH ×2 (09:00→16:34)
[2019-09-02] MEDS: VENLAFAXINE HCL 150 MG ER CAPSULE PO SCH (09:01)
[2019-09-02] MEDS: PHENYTOIN SODIUM 100 MG ER CAPSULE PO SCH (09:01)
[2019-09-02] MEDS: QUEtiapine FUMARATE 200 MG TABLET PO SCH (20:30)
[2019-09-03 06:14] VITALS: BP_SYST 133; BP_SYST 142; BP_DIAS 93; BP_DIAS 94
[2019-09-03] MEDS: LORazepam 2 MG TABLET PO PRN (08:00)
[2019-09-03] MEDS: HALOPERIDOL 5 MG TABLET PO PRN (08:00)
[2019-09-03] MEDS: PHENYTOIN SODIUM 100 MG ER CAPSULE PO SCH (08:01)
[2019-09-03] MEDS: VENLAFAXINE HCL 150 MG ER CAPSULE PO SCH (08:02)
[2019-09-03] MEDS: BusPIRone HCL 15 MG TABLET PO SCH ×2 (08:02→16:36)
[2019-09-03] MEDS: CloZAPine 100 MG TABLET PO SCH ×2 (08:02→20:37)
[2019-09-03] MEDS: LACOSAMIDE 100 MG TABLET PO SCH ×2 (08:05→16:36)
[2019-09-03 08:47] VITALS: BP 100/60
[2019-09-03 10:01] VITALS: BP 126/69
[2019-09-03 12:00] VITALS: BP 113/65
[2019-09-03 17:35] VITALS: BP 116/75
[2019-09-03 20:00] VITALS: BP 102/62
[2019-09-03] MEDS: QUEtiapine FUMARATE 200 MG TABLET PO SCH (20:37)
[2019-09-04 01:24] VITALS: BP 107/66
[2019-09-04 08:34] VITALS: BP 112/79
[2019-09-04] MEDS: CloZAPine 100 MG TABLET PO SCH ×2 (09:38→20:35)
[2019-09-04] MEDS: PHENYTOIN SODIUM 100 MG ER CAPSULE PO SCH (09:39)
[2019-09-04] MEDS: LACOSAMIDE 100 MG TABLET PO SCH ×2 (09:39→17:02)
[2019-09-04] MEDS: BusPIRone HCL 15 MG TABLET PO SCH ×2 (09:39→17:02)
[2019-09-04] MEDS: VENLAFAXINE HCL 150 MG ER CAPSULE PO SCH (09:39)
[2019-09-04 16:56] VITALS: BP 111/78
[2019-09-04] MEDS: LORazepam 1 MG TABLET PO PRN (20:02)
[2019-09-04] MEDS: QUEtiapine FUMARATE 200 MG TABLET PO SCH (20:35)
[2019-09-05 06:28] VITALS: BP 104/68
[2019-09-05 08:29] VITALS: BP 112/75
[2019-09-05] MEDS: VENLAFAXINE HCL 150 MG ER CAPSULE PO SCH (09:38)
[2019-09-05] MEDS: CloZAPine 100 MG TABLET PO SCH ×2 (09:39→20:35)
[2019-09-05] MEDS: PHENYTOIN SODIUM 100 MG ER CAPSULE PO SCH (09:39)
[2019-09-05] MEDS: BusPIRone HCL 15 MG TABLET PO SCH ×2 (09:39→16:36)
[2019-09-05] MEDS: LACOSAMIDE 100 MG TABLET PO SCH ×2 (09:40→16:36)
[2019-09-05] MEDS: LORazepam 1 MG TABLET PO PRN ×2 (11:53→19:54)
[2019-09-05 16:24] VITALS: BP 110/64
[2019-09-05] MEDS: QUEtiapine FUMARATE 200 MG TABLET PO SCH (20:35)
[2019-09-06 02:09] VITALS: BP 110/79
[2019-09-06] MEDS: ZOLPIDEM TARTRATE 10 MG TABLET PO PRN (02:23)
[2019-09-06] MEDS: HALOPERIDOL 5 MG TABLET PO PRN (02:23)
[2019-09-06] MEDS: PHENYTOIN SODIUM 100 MG ER CAPSULE PO SCH (08:59)
[2019-09-06] MEDS: LACOSAMIDE 100 MG TABLET PO SCH (08:59)
[2019-09-06] MEDS: BusPIRone HCL 15 MG TABLET PO SCH (08:59)
[2019-09-06] MEDS: VENLAFAXINE HCL 150 MG ER CAPSULE PO SCH (08:59)
[2019-09-06] MEDS: CloZAPine 100 MG TABLET PO SCH (08:59)
[2019-09-06 09:05] VITALS: BP 108/76
[2019-09-06] MEDS ORDERED: QUET200T29 PO (11:19)
[2019-09-06] MEDS ORDERED: CLOZ100T31 PO ×2 (11:19)
[2019-09-06] MEDS ORDERED: BUSP15 PO (11:19)
[2019-09-06] MEDS ORDERED: VENL150C2 PO (11:19)
[2019-09-06 16:02] VITALS: BP 109/77
== END 2019-09-06 16:20 | disposition home or self-care (01) | DRG 885 ==
LOC: B2X 16:42
PROVIDERS: ADMIT Psychiatry & Neurology Child & Adolescent Psychiatry
DX: F25.1 Schizoaffective disorder, depressive type (principal); R45.851 Suicidal ideations; G40.909 Epilepsy, unspecified, not intractable, without status epilepticus; I10 Essential (primary) hypertension; F41.9 Anxiety disorder, unspecified; K59.00 Constipation, unspecified; J44.9 Chronic obstructive pulmonary disease, unspecified; Z91.5 Personal history of self-harm; F17.200 Nicotine dependence, unspecified, uncomplicated; Z28.21 Immunization not carried out because of patient refusal
CPT/HCPCS: 80307; 83036; 84439; 84443; 87081; 90732; 93005

== ENCOUNTER 2019-08-29 13:44 | Emergency (ER) | payer MEDICARE, MEDICAID ==
[~2019-08-29] VITALS: Ht 170.2 cm; Wt 72.7 kg
[~2019-08-29 13:44] MED LIST changes: +BUSP15 PO; +LACO100 PO; +PHENY100 PO; +QUET200T PO; +VENL-68 PO
[2019-08-29 16:01] VITALS: BP 125/78
== END 2019-08-29 16:02 | disposition other institution (70) ==
LOC: EMS 13:44
DX: S00.81XA Abrasion of other part of head, initial encounter (principal); F32.9 Major depressive disorder, single episode, unspecified; F20.9 Schizophrenia, unspecified; W01.0XXA Fall on same level from slipping, tripping and stumbling without subsequent striking against object, initial encounter; Y93.89 Activity, other specified; Y92.89 Other specified places as the place of occurrence of the external cause; Y99.8 Other external cause status

== ENCOUNTER 2019-09-02 23:44 | Emergency (ER) | payer MEDICARE, MEDICAID ==
[~2019-09-02] VITALS: Ht 180.3 cm; Wt 84.1 kg
[2019-09-03 02:58] LABS: BASOPHILS % (AUTO) 0.4 % (0.0-2.0); EOSINOPHILS % (AUTO) 3.7 % (1.0-6.0); HEMATOCRIT 45.5 % (41-53); HEMOGLOBIN 14.9 g/dL (13.5-17.5); LYMPHOCYTES # (AUTO) 1.8 K/uL (1.0-4.8); MEAN CORPUSCULAR HEMOGLOBIN 30.1 pg (26.0-34.0); MEAN CORPUSCULAR HGB CONC 32.8 G/dL (31.0-37.0); MEAN CORPUSCULAR VOLUME 92 fL (80-100); MONOCYTES # (AUTO) 0.6 K/uL (0.1-1.0); MONOCYTES % (AUTO) 7.8 % (2.0-9.0); NEUTROPHILS # (AUTO) 4.9 K/uL (1.8-7.7); NEUTROPHILS % (AUTO) 64.1 % (40.0-70.0); PLATELET COUNT (AUTO) 329 K/uL (150-450); RED BLOOD CELL COUNT(AUTO) 4.96 MIL/uL (4.50-5.90)
[2019-09-03 03:40] LABS: ANION GAP 10 mmol/L (8-16); CALCIUM, TOTAL 9.2 mg/dL (8.8-10.5); CARBON DIOXIDE 26 mmol/L (22-29); CHLORIDE 105 mmol/L (98-107); CREATININE 0.69 mg/dL (0.60-1.30); GLOMERULAR FILTR. RATE CALC > 60 mL/min (>60); GLUCOSE,RANDOM 91 mg/dL (70-110); POTASSIUM 4.4 mmol/L (3.5-5.1); SODIUM SERUM 141 mmol/L (136-145); UREA NITROGEN, BLOOD 13 mg/dL (7-18)
[2019-09-03 03:47] LABS: ALANINE AMINOTRANSFERASE 27 U/L (12-78); ALBUMIN 3.7 g/dL (3.4-5.0); ALKALINE PHOSPHATASE 119 U/L (46-116); ASPARTATE AMINOTRANSFERASE 14 U/L (15-37); BILIRUBIN,TOTAL 0.3 mg/dL (0.1-1.0); TOTAL PROTEIN, SERUM 7.8 g/dL (6.4-8.2)
[2019-09-03 05:47] VITALS: BP 129/91
== END 2019-09-03 05:45 | disposition home or self-care (01) ==
LOC: EMS 23:44
DX: R42 Dizziness and giddiness (principal); F32.9 Major depressive disorder, single episode, unspecified; F20.9 Schizophrenia, unspecified; F17.210 Nicotine dependence, cigarettes, uncomplicated
CPT/HCPCS: 93005

== ENCOUNTER 2019-10-22 16:59 | Inpatient (IN) | payer MEDICARE, MEDICAID ==
[~2019-10-22] VITALS: Ht 180.3 cm; Wt 75.8 kg
[~2019-10-22 16:59] MED LIST changes: +CLOZ100T31 PO; -CLOZ100T32 PO; -METO25 PO; +METO50 PO; -QUET200T PO; +QUET200T29 PO; -VENL-68 PO; +VENL150C2 PO
[2019-10-22] MEDS ORDERED: BENZTROPINE MESYLATE 1 MG/ML 2 ML VIAL IM ONE (19:00)
[2019-10-22] MEDS ORDERED: ZOLPIDEM TARTRATE 10 MG TABLET PO PRN (19:45)
[2019-10-22 20:17] LABS: BASOPHILS % (AUTO) 0.7 % (0.0-2.0); EOSINOPHILS % (AUTO) 1.1 % (1.0-6.0); HEMATOCRIT 44.5 % (41-53); HEMOGLOBIN 14.9 g/dL (13.5-17.5); LYMPHOCYTES # (AUTO) 1.6 K/uL (1.0-4.8); LYMPHOCYTES % (AUTO) 17.2 % (22.0-44.0); MEAN CORPUSCULAR HEMOGLOBIN 30.1 pg (26.0-34.0); MEAN CORPUSCULAR HGB CONC 33.5 G/dL (31.0-37.0); MEAN CORPUSCULAR VOLUME 90 fL (80-100); MONOCYTES % (AUTO) 10.1 % (2.0-9.0); NEUTROPHILS # (AUTO) 6.7 K/uL (1.8-7.7); NEUTROPHILS % (AUTO) 70.9 % (40.0-70.0); PLATELET COUNT (AUTO) 326 K/uL (150-450); RED BLOOD CELL COUNT(AUTO) 4.95 MIL/uL (4.50-5.90); RED CELL DISTRIBUTION WIDTH 12.9 % (11.5-14.5)
[2019-10-22 20:26] LABS: ANION GAP 8 mmol/L (8-16); CALCIUM, TOTAL 9.5 mg/dL (8.8-10.5); CARBON DIOXIDE 27 mmol/L (22-29); CHLORIDE 102 mmol/L (98-107); CREATININE 1.03 mg/dL (0.60-1.30); GLOMERULAR FILTR. RATE CALC > 60 mL/min (>60); GLUCOSE,RANDOM 81 mg/dL (70-110); POTASSIUM 3.8 mmol/L (3.5-5.1); SODIUM SERUM 137 mmol/L (136-145); UREA NITROGEN, BLOOD 12 mg/dL (7-18)
[2019-10-22 20:32] LABS: ALANINE AMINOTRANSFERASE 23 U/L (12-78); ALBUMIN 4.1 g/dL (3.4-5.0); ALKALINE PHOSPHATASE 114 U/L (46-116); ASPARTATE AMINOTRANSFERASE 12 U/L (15-37); BILIRUBIN,TOTAL 0.6 mg/dL (0.1-1.0); TOTAL PROTEIN, SERUM 7.3 g/dL (6.4-8.2)
[2019-10-22 22:04] VITALS: BP 132/86
[2019-10-23 07:29] LABS: CHOL/HDL RATIO 2.5 (4.2-7.3); PHENYTOIN (DILANTIN) 1.7 mcg/mL (10.0-20.0)
[2019-10-23] MEDS ORDERED: IBUPROFEN 400 MG TABLET PO PRN (08:15)
[2019-10-23] MEDS ORDERED: ONDANSETRON HCL 4 MG TABLET PO PRN (08:15)
[2019-10-23] MEDS ORDERED: CloNIDine HCL 0.1 MG TABLET PO PRN (08:15)
[2019-10-23] MEDS ORDERED: PETROLATUM,WHITE 28 GM JELLY TP PRN (08:15)
[2019-10-23] MEDS ORDERED: LOPERAMIDE HCL 2 MG CAPSULE PO PRN (08:15)
[2019-10-23] MEDS ORDERED: MAG HYDROX/AL HYDROX/SIMETH ES 30 ML SUSPENSION UDCUP PO PRN (08:15)
[2019-10-23] MEDS ORDERED: NICOTINE 14 MG/24 HOUR PATCH TD PRN (08:15)
[2019-10-23] MEDS ORDERED: GuaiFENesin/D-METHORPHAN [SUGAR-FREE] 200-20MG/10 ML SYRUP UDCUP PO PRN (08:15)
[2019-10-23] MEDS ORDERED: MAGNESIUM HYDROXIDE SUSPENSION 30 ML UDCUP PO PRN (08:15)
[2019-10-23] MEDS ORDERED: DOCUSATE SODIUM 100 MG CAPSULE PO PRN (08:15)
[2019-10-23] MEDS ORDERED: ALBUTEROL SULFATE HFA 90 MCG/PUFF 8 GM INHALER IH PRN (08:15)
[2019-10-23] MEDS: PHENYTOIN SODIUM 100 MG ER CAPSULE PO SCH (08:49)
[2019-10-23 09:00] VITALS: BP 101/61
[2019-10-23] MEDS: METOPROLOL TARTRATE 50 MG TABLET PO SCH (09:00)
[2019-10-23] MEDS ORDERED: PHENYTOIN SODIUM 100 MG ER CAPSULE PO SCH (09:00)
[2019-10-23] MEDS: LACOSAMIDE 100 MG TABLET PO SCH ×2 (09:26→16:44)
[2019-10-23] MEDS: VENLAFAXINE HCL 150 MG ER CAPSULE PO SCH (12:23)
[2019-10-23] MEDS: QUEtiapine FUMARATE 100 MG TABLET PO PRN (14:50)
[2019-10-23] MEDS: LORazepam 2 MG TABLET PO PRN (14:50)
[2019-10-23 16:35] VITALS: BP 110/75
[2019-10-23] MEDS: BusPIRone HCL 15 MG TABLET PO SCH (16:43)
[2019-10-23] MEDS: QUEtiapine FUMARATE 300 MG TABLET PO SCH (20:02)
[2019-10-24 08:00] VITALS: BP 109/70
[2019-10-24] MEDS: PHENYTOIN SODIUM 100 MG ER CAPSULE PO SCH (08:09)
[2019-10-24] MEDS: METOPROLOL TARTRATE 50 MG TABLET PO SCH (08:09)
[2019-10-24] MEDS: VENLAFAXINE HCL 150 MG ER CAPSULE PO SCH (08:09)
[2019-10-24] MEDS: LACOSAMIDE 100 MG TABLET PO SCH ×2 (08:09→15:55)
[2019-10-24] MEDS: BusPIRone HCL 15 MG TABLET PO SCH ×2 (08:09→15:55)
[2019-10-24 16:39] VITALS: BP 118/78
[2019-10-24] MEDS: QUEtiapine FUMARATE 300 MG TABLET PO SCH (20:00)
[2019-10-25 08:00] VITALS: BP 112/70
[2019-10-25] MEDS: METOPROLOL TARTRATE 50 MG TABLET PO SCH (08:19)
[2019-10-25] MEDS: LACOSAMIDE 100 MG TABLET PO SCH ×2 (08:19→17:00)
[2019-10-25] MEDS: VENLAFAXINE HCL 150 MG ER CAPSULE PO SCH (08:20)
[2019-10-25] MEDS: PHENYTOIN SODIUM 100 MG ER CAPSULE PO SCH (08:20)
[2019-10-25] MEDS: BusPIRone HCL 15 MG TABLET PO SCH ×2 (08:20→17:23)
[2019-10-25] MEDS: LORazepam 2 MG TABLET PO PRN (14:43)
[2019-10-25] MEDS: QUEtiapine FUMARATE 300 MG TABLET PO SCH (20:36)
[2019-10-26 08:10] VITALS: BP 130/86
[2019-10-26] MEDS: LACOSAMIDE 100 MG TABLET PO SCH ×2 (08:35→17:00)
[2019-10-26] MEDS: PHENYTOIN SODIUM 100 MG ER CAPSULE PO SCH (08:35)
[2019-10-26] MEDS: BusPIRone HCL 15 MG TABLET PO SCH ×2 (08:37→16:58)
[2019-10-26] MEDS: METOPROLOL TARTRATE 50 MG TABLET PO SCH (08:37)
[2019-10-26] MEDS: VENLAFAXINE HCL 150 MG ER CAPSULE PO SCH (08:37)
[2019-10-26] MEDS: LORazepam 2 MG TABLET PO PRN (08:44)
[2019-10-26 16:00] VITALS: BP 98/66
[2019-10-26] MEDS: QUEtiapine FUMARATE 100 MG TABLET PO PRN (18:48)
[2019-10-26] MEDS: QUEtiapine FUMARATE 300 MG TABLET PO SCH (20:13)
[2019-10-27 08:00] VITALS: BP 102/68
[2019-10-27] MEDS: BusPIRone HCL 15 MG TABLET PO SCH ×2 (08:17→15:54)
[2019-10-27] MEDS: METOPROLOL TARTRATE 50 MG TABLET PO SCH (08:17)
[2019-10-27] MEDS: LACOSAMIDE 100 MG TABLET PO SCH ×2 (08:17→15:56)
[2019-10-27] MEDS: LORazepam 2 MG TABLET PO PRN (08:17)
[2019-10-27] MEDS: VENLAFAXINE HCL 150 MG ER CAPSULE PO SCH (08:18)
[2019-10-27] MEDS: PHENYTOIN SODIUM 100 MG ER CAPSULE PO SCH (08:18)
[2019-10-27] MEDS: QUEtiapine FUMARATE 100 MG TABLET PO PRN (15:54)
[2019-10-27 18:02] VITALS: BP 98/62
[2019-10-27] MEDS: QUEtiapine FUMARATE 300 MG TABLET PO SCH (20:00)
[2019-10-28] MEDS: METOPROLOL TARTRATE 50 MG TABLET PO SCH ×2 (09:00→09:07)
[2019-10-28] MEDS: LACOSAMIDE 100 MG TABLET PO SCH ×2 (09:04→16:10)
[2019-10-28] MEDS: BusPIRone HCL 15 MG TABLET PO SCH ×2 (09:05→16:10)
[2019-10-28] MEDS: PHENYTOIN SODIUM 100 MG ER CAPSULE PO SCH (09:05)
[2019-10-28] MEDS: VENLAFAXINE HCL 150 MG ER CAPSULE PO SCH (09:05)
[2019-10-28] MEDS: QUEtiapine FUMARATE 100 MG TABLET PO PRN ×3 (09:55→15:15)
[2019-10-28 16:42] VITALS: BP 118/76
[2019-10-28] MEDS: QUEtiapine FUMARATE 300 MG TABLET PO SCH (20:57)
[2019-10-29] MEDS: PHENYTOIN SODIUM 100 MG ER CAPSULE PO SCH (08:38)
[2019-10-29] MEDS: METOPROLOL TARTRATE 50 MG TABLET PO SCH (08:38)
[2019-10-29] MEDS: VENLAFAXINE HCL 150 MG ER CAPSULE PO SCH (08:38)
[2019-10-29] MEDS: BusPIRone HCL 15 MG TABLET PO SCH ×2 (08:38→16:56)
[2019-10-29] MEDS: LACOSAMIDE 100 MG TABLET PO SCH ×2 (08:38→16:56)
[2019-10-29 09:00] VITALS: BP 103/70
[2019-10-29] MEDS: QUEtiapine FUMARATE 100 MG TABLET PO PRN (12:39)
[2019-10-29] MEDS: LORazepam 1 MG TABLET PO SCH (16:56)
[2019-10-29 17:01] VITALS: BP 112/86
[2019-10-29] MEDS: QUEtiapine FUMARATE 300 MG TABLET PO SCH (20:51)
[2019-10-30 08:00] VITALS: BP 117/79
[2019-10-30] MEDS: PHENYTOIN SODIUM 100 MG ER CAPSULE PO SCH (08:09)
[2019-10-30] MEDS: LACOSAMIDE 100 MG TABLET PO SCH ×2 (08:09→16:09)
[2019-10-30] MEDS: LORazepam 1 MG TABLET PO SCH ×2 (08:09→16:08)
[2019-10-30] MEDS: VENLAFAXINE HCL 150 MG ER CAPSULE PO SCH (08:09)
[2019-10-30] MEDS: BusPIRone HCL 15 MG TABLET PO SCH ×2 (08:10→16:08)
[2019-10-30] MEDS: METOPROLOL TARTRATE 50 MG TABLET PO SCH (08:10)
[2019-10-30 16:35] VITALS: BP 105/75
[2019-10-30] MEDS: QUEtiapine FUMARATE 300 MG TABLET PO SCH (20:22)
[2019-10-31 08:00] VITALS: BP 116/75
[2019-10-31] MEDS: PHENYTOIN SODIUM 100 MG ER CAPSULE PO SCH (09:18)
[2019-10-31] MEDS: VENLAFAXINE HCL 150 MG ER CAPSULE PO SCH (09:18)
[2019-10-31] MEDS: LORazepam 1 MG TABLET PO SCH ×2 (09:18→17:00)
[2019-10-31] MEDS: METOPROLOL TARTRATE 50 MG TABLET PO SCH (09:19)
[2019-10-31] MEDS: LACOSAMIDE 100 MG TABLET PO SCH ×2 (09:19→17:16)
[2019-10-31] MEDS: BusPIRone HCL 15 MG TABLET PO SCH ×2 (09:19→17:16)
[2019-10-31 16:11] VITALS: BP 131/81
[2019-10-31] MEDS: QUEtiapine FUMARATE 100 MG TABLET PO PRN (17:16)
[2019-10-31] MEDS: QUEtiapine FUMARATE 300 MG TABLET PO SCH (21:13)
[2019-11-01] MEDS: VENLAFAXINE HCL 150 MG ER CAPSULE PO SCH (10:21)
[2019-11-01] MEDS: METOPROLOL TARTRATE 50 MG TABLET PO SCH (10:21)
[2019-11-01] MEDS: BusPIRone HCL 15 MG TABLET PO SCH ×3 (10:22→18:00)
[2019-11-01] MEDS: LACOSAMIDE 100 MG TABLET PO SCH ×3 (10:22→18:00)
[2019-11-01] MEDS: LORazepam 1 MG TABLET PO SCH (10:22)
[2019-11-01] MEDS: PHENYTOIN SODIUM 100 MG ER CAPSULE PO SCH (10:22)
[2019-11-01 18:09] VITALS: BP 99/69
[2019-11-01] MEDS: ClonazePAM 0.5 MG TABLET PO SCH (21:18)
[2019-11-01] MEDS: QUEtiapine FUMARATE 300 MG TABLET PO SCH (21:18)
[2019-11-02] MEDS: LACOSAMIDE 100 MG TABLET PO SCH ×2 (08:07→16:22)
[2019-11-02] MEDS: ClonazePAM 0.5 MG TABLET PO SCH ×2 (08:07→20:21)
[2019-11-02] MEDS: METOPROLOL TARTRATE 50 MG TABLET PO SCH ×2 (08:08→09:00)
[2019-11-02] MEDS: PHENYTOIN SODIUM 100 MG ER CAPSULE PO SCH (08:08)
[2019-11-02] MEDS: VENLAFAXINE HCL 150 MG ER CAPSULE PO SCH (08:08)
[2019-11-02 09:00] VITALS: BP 102/61
[2019-11-02] MEDS: QUEtiapine FUMARATE 100 MG TABLET PO PRN ×2 (10:06→16:47)
[2019-11-02] MEDS: BusPIRone HCL 15 MG TABLET PO SCH (16:21)
[2019-11-02 16:24] VITALS: BP 104/81
[2019-11-02] MEDS: QUEtiapine FUMARATE 300 MG TABLET PO SCH (20:21)
[2019-11-03] MEDS: BusPIRone HCL 15 MG TABLET PO SCH ×2 (08:07→16:32)
[2019-11-03] MEDS: VENLAFAXINE HCL 150 MG ER CAPSULE PO SCH (08:07)
[2019-11-03] MEDS: PHENYTOIN SODIUM 100 MG ER CAPSULE PO SCH (08:08)
[2019-11-03] MEDS: LACOSAMIDE 100 MG TABLET PO SCH ×2 (08:10→16:32)
[2019-11-03] MEDS: ClonazePAM 0.5 MG TABLET PO SCH ×2 (08:11→21:00)
[2019-11-03 09:00] VITALS: BP 100/70
[2019-11-03] MEDS: METOPROLOL TARTRATE 50 MG TABLET PO SCH (14:28)
[2019-11-03 16:41] VITALS: BP 99/59
[2019-11-03] MEDS: LORazepam 2 MG TABLET PO PRN (19:58)
[2019-11-03] MEDS: QUEtiapine FUMARATE 200 MG TABLET PO SCH (20:12)
[2019-11-04 08:00] VITALS: BP 90/59
[2019-11-04] MEDS: METOPROLOL TARTRATE 50 MG TABLET PO SCH (09:00)
[2019-11-04] MEDS: ClonazePAM 0.5 MG TABLET PO SCH ×2 (09:00→20:16)
[2019-11-04] MEDS: PHENYTOIN SODIUM 100 MG ER CAPSULE PO SCH (09:58)
[2019-11-04] MEDS: BusPIRone HCL 15 MG TABLET PO SCH ×2 (09:59→17:03)
[2019-11-04] MEDS: VENLAFAXINE HCL 150 MG ER CAPSULE PO SCH (09:59)
[2019-11-04] MEDS: LACOSAMIDE 100 MG TABLET PO SCH ×2 (09:59→17:03)
[2019-11-04] MEDS: QUEtiapine FUMARATE 100 MG TABLET PO PRN (18:19)
[2019-11-04] MEDS: QUEtiapine FUMARATE 200 MG TABLET PO SCH (20:17)
[2019-11-05 08:30] VITALS: BP 112/71
[2019-11-05] MEDS: PHENYTOIN SODIUM 100 MG ER CAPSULE PO SCH (10:30)
[2019-11-05] MEDS: BusPIRone HCL 15 MG TABLET PO SCH ×2 (10:30→17:00)
[2019-11-05] MEDS: LACOSAMIDE 100 MG TABLET PO SCH ×2 (10:30→17:00)
[2019-11-05] MEDS: ClonazePAM 0.5 MG TABLET PO SCH ×2 (10:30→21:00)
[2019-11-05] MEDS: VENLAFAXINE HCL 150 MG ER CAPSULE PO SCH (10:30)
[2019-11-05] MEDS: METOPROLOL TARTRATE 50 MG TABLET PO SCH (10:30)
[2019-11-05] MEDS: QUEtiapine FUMARATE 200 MG TABLET PO SCH (21:00)
[2019-11-06 00:38] VITALS: BP 128/86
[2019-11-06] MEDS: PHENYTOIN SODIUM 100 MG ER CAPSULE PO SCH (09:14)
[2019-11-06] MEDS: ClonazePAM 0.5 MG TABLET PO SCH ×2 (09:14→21:00)
[2019-11-06] MEDS: VENLAFAXINE HCL 150 MG ER CAPSULE PO SCH (09:15)
[2019-11-06] MEDS: BusPIRone HCL 15 MG TABLET PO SCH ×2 (09:16→17:00)
[2019-11-06] MEDS: METOPROLOL TARTRATE 50 MG TABLET PO SCH (09:17)
[2019-11-06] MEDS: LACOSAMIDE 100 MG TABLET PO SCH ×2 (09:29→17:00)
[2019-11-06 09:42] VITALS: BP 114/64
[2019-11-06] MEDS: LORazepam 2 MG/ML VIAL IM ONE ×2 (13:25→13:52)
[2019-11-06] MEDS: QUEtiapine FUMARATE 200 MG TABLET PO SCH (21:00)
[2019-11-07 02:15] VITALS: BP 110/67
[2019-11-07] MEDS: QUEtiapine FUMARATE 100 MG TABLET PO PRN ×2 (02:25→15:42)
[2019-11-07 08:50] VITALS: BP 113/56
[2019-11-07] MEDS: PHENYTOIN SODIUM 100 MG ER CAPSULE PO SCH (12:09)
[2019-11-07] MEDS: BusPIRone HCL 15 MG TABLET PO SCH ×2 (12:09→16:46)
[2019-11-07] MEDS: VENLAFAXINE HCL 150 MG ER CAPSULE PO SCH (12:10)
[2019-11-07] MEDS: LACOSAMIDE 100 MG TABLET PO SCH ×2 (12:10→17:00)
[2019-11-07] MEDS: METOPROLOL TARTRATE 50 MG TABLET PO SCH (12:10)
[2019-11-07] MEDS: ClonazePAM 0.5 MG TABLET PO SCH ×2 (12:10→20:07)
[2019-11-07 16:12] VITALS: BP 95/67
[2019-11-07] MEDS: QUEtiapine FUMARATE 200 MG TABLET PO SCH (20:05)
[2019-11-08 08:00] VITALS: BP 100/62
[2019-11-08] MEDS: PHENYTOIN SODIUM 100 MG ER CAPSULE PO SCH (10:07)
[2019-11-08] MEDS: BusPIRone HCL 15 MG TABLET PO SCH ×2 (10:08→17:00)
[2019-11-08] MEDS: VENLAFAXINE HCL 150 MG ER CAPSULE PO SCH (10:08)
[2019-11-08] MEDS: METOPROLOL TARTRATE 50 MG TABLET PO SCH (10:08)
[2019-11-08] MEDS: ClonazePAM 0.5 MG TABLET PO SCH ×2 (10:08→20:16)
[2019-11-08] MEDS: LACOSAMIDE 100 MG TABLET PO SCH ×2 (10:21→17:00)
[2019-11-08] MEDS: QUEtiapine FUMARATE 100 MG TABLET PO PRN (12:37)
[2019-11-08] MEDS: LORazepam 2 MG TABLET PO PRN (12:37)
[2019-11-08 16:00] VITALS: BP 129/69
[2019-11-08] MEDS: QUEtiapine FUMARATE 200 MG TABLET PO SCH (20:10)
[2019-11-09 08:00] VITALS: BP 120/76
[2019-11-09] MEDS: BusPIRone HCL 15 MG TABLET PO SCH ×2 (08:19→16:46)
[2019-11-09] MEDS: VENLAFAXINE HCL 150 MG ER CAPSULE PO SCH (08:19)
[2019-11-09] MEDS: PHENYTOIN SODIUM 100 MG ER CAPSULE PO SCH (08:19)
[2019-11-09] MEDS: METOPROLOL TARTRATE 50 MG TABLET PO SCH (08:19)
[2019-11-09] MEDS: QUEtiapine FUMARATE 100 MG TABLET PO PRN ×3 (08:20→22:40)
[2019-11-09] MEDS: ClonazePAM 0.5 MG TABLET PO SCH ×2 (08:20→20:20)
[2019-11-09] MEDS: LACOSAMIDE 100 MG TABLET PO SCH ×2 (10:03→16:46)
[2019-11-09 16:27] VITALS: BP 106/74
[2019-11-09] MEDS: QUEtiapine FUMARATE 200 MG TABLET PO SCH (20:20)
[2019-11-10] MEDS: VENLAFAXINE HCL 150 MG ER CAPSULE PO SCH (10:15)
[2019-11-10] MEDS: ClonazePAM 0.5 MG TABLET PO SCH ×2 (10:15→21:00)
[2019-11-10] MEDS: BusPIRone HCL 15 MG TABLET PO SCH ×2 (10:15→17:45)
[2019-11-10] MEDS: LACOSAMIDE 100 MG TABLET PO SCH ×2 (10:15→17:45)
[2019-11-10] MEDS: METOPROLOL TARTRATE 50 MG TABLET PO SCH (10:15)
[2019-11-10] MEDS: PHENYTOIN SODIUM 100 MG ER CAPSULE PO SCH (10:15)
[2019-11-10 12:23] VITALS: BP 129/79
[2019-11-10 16:36] VITALS: BP 118/72
[2019-11-10] MEDS: QUEtiapine FUMARATE 200 MG TABLET PO SCH (21:00)
[2019-11-11] MEDS: METOPROLOL TARTRATE 50 MG TABLET PO SCH ×2 (09:00→09:25)
[2019-11-11] MEDS: BusPIRone HCL 15 MG TABLET PO SCH ×3 (09:00→17:00)
[2019-11-11] MEDS: PHENYTOIN SODIUM 100 MG ER CAPSULE PO SCH ×2 (09:00→09:25)
[2019-11-11] MEDS: VENLAFAXINE HCL 150 MG ER CAPSULE PO SCH ×2 (09:00→09:26)
[2019-11-11] MEDS: ClonazePAM 0.5 MG TABLET PO SCH ×3 (09:00→20:24)
[2019-11-11] MEDS: LACOSAMIDE 100 MG TABLET PO SCH ×3 (09:00→17:00)
[2019-11-11] MEDS: QUEtiapine FUMARATE 200 MG TABLET PO SCH (20:24)
[2019-11-12] MEDS: BusPIRone HCL 15 MG TABLET PO SCH ×3 (09:00→17:33)
[2019-11-12] MEDS: METOPROLOL TARTRATE 50 MG TABLET PO SCH ×2 (09:00→10:08)
[2019-11-12] MEDS: ClonazePAM 0.5 MG TABLET PO SCH ×2 (09:00→10:07)
[2019-11-12] MEDS: VENLAFAXINE HCL 150 MG ER CAPSULE PO SCH ×2 (09:00→10:08)
[2019-11-12] MEDS: PHENYTOIN SODIUM 100 MG ER CAPSULE PO SCH ×2 (09:00→10:07)
[2019-11-12] MEDS: LACOSAMIDE 100 MG TABLET PO SCH ×2 (09:00→17:00)
[2019-11-12 16:21] VITALS: BP 100/67
[2019-11-12] MEDS: QUEtiapine FUMARATE 100 MG TABLET PO PRN (17:36)
[2019-11-12] MEDS: QUEtiapine FUMARATE 200 MG TABLET PO SCH (21:00)
[2019-11-13] MEDS: QUEtiapine FUMARATE 100 MG TABLET PO PRN ×2 (00:56→09:54)
[2019-11-13] MEDS: LACOSAMIDE 100 MG TABLET PO SCH ×2 (09:00→17:00)
[2019-11-13] MEDS: METOPROLOL TARTRATE 50 MG TABLET PO SCH (09:52)
[2019-11-13] MEDS: VENLAFAXINE HCL 150 MG ER CAPSULE PO SCH (09:53)
[2019-11-13] MEDS: BusPIRone HCL 15 MG TABLET PO SCH ×2 (09:53→17:00)
[2019-11-13] MEDS: PHENYTOIN SODIUM 100 MG ER CAPSULE PO SCH (09:53)
[2019-11-13] MEDS: LORazepam 2 MG TABLET PO PRN (09:54)
[2019-11-13 16:38] VITALS: BP 100/60
[2019-11-13] MEDS: QUEtiapine FUMARATE 200 MG TABLET PO SCH (20:33)
[2019-11-14 08:42] VITALS: BP 103/75
[2019-11-14] MEDS: BusPIRone HCL 15 MG TABLET PO SCH ×2 (09:50→17:00)
[2019-11-14] MEDS: PHENYTOIN SODIUM 100 MG ER CAPSULE PO SCH (09:50)
[2019-11-14] MEDS: MULTIVITAMINS WITH MINERALS, THERAPEUTIC TABLET PO SCH (09:50)
[2019-11-14] MEDS: LACOSAMIDE 100 MG TABLET PO SCH ×2 (09:50→17:00)
[2019-11-14] MEDS: METOPROLOL TARTRATE 50 MG TABLET PO SCH (09:50)
[2019-11-14] MEDS: VENLAFAXINE HCL 150 MG ER CAPSULE PO SCH (09:50)
[2019-11-14] MEDS: QUEtiapine FUMARATE 200 MG TABLET PO SCH (20:30)
[2019-11-15 03:40] VITALS: BP 117/64
[2019-11-15] MEDS: QUEtiapine FUMARATE 100 MG TABLET PO PRN ×4 (03:44→17:43)
[2019-11-15] MEDS: VENLAFAXINE HCL 150 MG ER CAPSULE PO SCH ×2 (09:00→09:24)
[2019-11-15] MEDS: BusPIRone HCL 15 MG TABLET PO SCH ×3 (09:24→16:19)
[2019-11-15] MEDS: PHENYTOIN SODIUM 100 MG ER CAPSULE PO SCH ×2 (09:24→10:09)
[2019-11-15] MEDS: METOPROLOL TARTRATE 50 MG TABLET PO SCH ×2 (09:24→10:12)
[2019-11-15] MEDS: LORazepam 2 MG TABLET PO PRN ×2 (09:25→10:14)
[2019-11-15] MEDS: MULTIVITAMINS WITH MINERALS, THERAPEUTIC TABLET PO SCH ×2 (09:27→10:12)
[2019-11-15] MEDS: LACOSAMIDE 100 MG TABLET PO SCH ×3 (09:32→16:19)
[2019-11-15] MEDS ORDERED: LORazepam 2 MG/ML VIAL ONE (09:59)
[2019-11-15] MEDS ORDERED: HALOPERIDOL LACTATE 5 MG/ML VIAL ONE (09:59)
[2019-11-15] MEDS ORDERED: DiphenhydrAMINE HCL 50 MG/ML VIAL ONE (09:59)
[2019-11-15] MEDS ORDERED: HALOPERIDOL LACTATE 5 MG/ML VIAL IM ONE (10:00)
[2019-11-15] MEDS ORDERED: LORazepam 2 MG/ML VIAL IM ONE (10:00)
[2019-11-15] MEDS ORDERED: DiphenhydrAMINE HCL 50 MG/ML VIAL IM ONE (10:00)
[2019-11-15 10:30] VITALS: BP 134/85
[2019-11-15] MEDS: QUEtiapine FUMARATE 200 MG TABLET PO SCH (22:18)
[2019-11-16] MEDS: BusPIRone HCL 15 MG TABLET PO SCH ×2 (08:56→17:00)
[2019-11-16] MEDS: VENLAFAXINE HCL 150 MG ER CAPSULE PO SCH (08:56)
[2019-11-16] MEDS: METOPROLOL TARTRATE 50 MG TABLET PO SCH (08:56)
[2019-11-16] MEDS: LORazepam 2 MG TABLET PO PRN (08:56)
[2019-11-16] MEDS: QUEtiapine FUMARATE 100 MG TABLET PO PRN (08:56)
[2019-11-16] MEDS: MULTIVITAMINS WITH MINERALS, THERAPEUTIC TABLET PO SCH (08:56)
[2019-11-16] MEDS: PHENYTOIN SODIUM 100 MG ER CAPSULE PO SCH (08:57)
[2019-11-16] MEDS: LACOSAMIDE 100 MG TABLET PO SCH ×2 (09:03→17:00)
[2019-11-16 09:05] VITALS: BP 114/74
[2019-11-16] MEDS ORDERED: LORazepam 2 MG/ML VIAL ONE (14:56)
[2019-11-16] MEDS ORDERED: DiphenhydrAMINE HCL 50 MG/ML VIAL ONE (14:57)
[2019-11-16] MEDS ORDERED: HALOPERIDOL LACTATE 5 MG/ML VIAL ONE (14:57)
[2019-11-16] MEDS ORDERED: HALOPERIDOL LACTATE 5 MG/ML VIAL IM ONE (15:00)
[2019-11-16] MEDS ORDERED: DiphenhydrAMINE HCL 50 MG/ML VIAL IM ONE (15:00)
[2019-11-16] MEDS ORDERED: LORazepam 2 MG/ML VIAL IM ONE (15:00)
[2019-11-16] MEDS: QUEtiapine FUMARATE 200 MG TABLET PO SCH (20:53)
[2019-11-17] MEDS: METOPROLOL TARTRATE 50 MG TABLET PO SCH (09:05)
[2019-11-17] MEDS: PHENYTOIN SODIUM 100 MG ER CAPSULE PO SCH (09:05)
[2019-11-17] MEDS: BusPIRone HCL 15 MG TABLET PO SCH ×2 (09:05→17:42)
[2019-11-17] MEDS: VENLAFAXINE HCL 150 MG ER CAPSULE PO SCH (09:05)
[2019-11-17] MEDS: QUEtiapine FUMARATE 100 MG TABLET PO PRN ×2 (09:07→15:15)
[2019-11-17] MEDS: MULTIVITAMINS WITH MINERALS, THERAPEUTIC TABLET PO SCH (09:07)
[2019-11-17] MEDS: LORazepam 2 MG TABLET PO PRN ×2 (09:08→15:15)
[2019-11-17] MEDS: LACOSAMIDE 100 MG TABLET PO SCH ×2 (09:11→17:00)
[2019-11-17 16:36] VITALS: BP 97/64
[2019-11-17] MEDS: QUEtiapine FUMARATE 200 MG TABLET PO SCH (21:00)
[2019-11-18] MEDS: METOPROLOL TARTRATE 50 MG TABLET PO SCH (09:00)
[2019-11-18] MEDS: BusPIRone HCL 15 MG TABLET PO SCH ×2 (09:24→16:57)
[2019-11-18] MEDS: VENLAFAXINE HCL 150 MG ER CAPSULE PO SCH (09:24)
[2019-11-18] MEDS: MULTIVITAMINS WITH MINERALS, THERAPEUTIC TABLET PO SCH (09:24)
[2019-11-18] MEDS: PHENYTOIN SODIUM 100 MG ER CAPSULE PO SCH (09:25)
[2019-11-18] MEDS: LACOSAMIDE 100 MG TABLET PO SCH ×2 (09:25→16:57)
[2019-11-18] MEDS: QUEtiapine FUMARATE 100 MG TABLET PO PRN ×2 (12:12→17:18)
[2019-11-18 18:08] VITALS: BP 143/82
[2019-11-18] MEDS: QUEtiapine FUMARATE 200 MG TABLET PO SCH (20:11)
[2019-11-19 08:00] VITALS: BP 106/74
[2019-11-19] MEDS: METOPROLOL TARTRATE 50 MG TABLET PO SCH (09:00)
[2019-11-19] MEDS: VENLAFAXINE HCL 150 MG ER CAPSULE PO SCH (09:34)
[2019-11-19] MEDS: MULTIVITAMINS WITH MINERALS, THERAPEUTIC TABLET PO SCH (09:34)
[2019-11-19] MEDS: PHENYTOIN SODIUM 100 MG ER CAPSULE PO SCH (09:34)
[2019-11-19] MEDS: BusPIRone HCL 15 MG TABLET PO SCH ×2 (09:34→16:38)
[2019-11-19] MEDS: LACOSAMIDE 100 MG TABLET PO SCH ×2 (09:34→16:38)
[2019-11-19] MEDS: QUEtiapine FUMARATE 100 MG TABLET PO PRN (10:37)
[2019-11-19 17:06] VITALS: BP 101/69
[2019-11-19] MEDS: QUEtiapine FUMARATE 200 MG TABLET PO SCH (21:53)
[2019-11-20 03:05] VITALS: BP 109/70
[2019-11-20] MEDS: HALOPERIDOL 5 MG TABLET PO PRN (03:10)
[2019-11-20] MEDS: VENLAFAXINE HCL 150 MG ER CAPSULE PO SCH (09:26)
[2019-11-20] MEDS: METOPROLOL TARTRATE 50 MG TABLET PO SCH (09:26)
[2019-11-20] MEDS: PHENYTOIN SODIUM 100 MG ER CAPSULE PO SCH (09:26)
[2019-11-20] MEDS: LACOSAMIDE 100 MG TABLET PO SCH ×2 (09:26→16:42)
[2019-11-20] MEDS: MULTIVITAMINS WITH MINERALS, THERAPEUTIC TABLET PO SCH (09:26)
[2019-11-20] MEDS: BusPIRone HCL 15 MG TABLET PO SCH ×2 (09:26→16:42)
[2019-11-20] MEDS: QUEtiapine FUMARATE 200 MG TABLET PO SCH (20:53)
[2019-11-21] MEDS: METOPROLOL TARTRATE 50 MG TABLET PO SCH (09:00)
[2019-11-21 09:28] VITALS: BP 90/59
[2019-11-21] MEDS: MULTIVITAMINS WITH MINERALS, THERAPEUTIC TABLET PO SCH (12:34)
[2019-11-21] MEDS: PHENYTOIN SODIUM 100 MG ER CAPSULE PO SCH (12:34)
[2019-11-21] MEDS: LACOSAMIDE 100 MG TABLET PO SCH ×2 (12:34→19:20)
[2019-11-21] MEDS: BusPIRone HCL 15 MG TABLET PO SCH ×2 (12:34→19:20)
[2019-11-21] MEDS: VENLAFAXINE HCL 150 MG ER CAPSULE PO SCH (12:34)
[2019-11-21] MEDS: HALOPERIDOL 5 MG TABLET PO PRN ×2 (14:36→19:20)
[2019-11-21 16:03] VITALS: BP 110/83
[2019-11-21] MEDS: QUEtiapine FUMARATE 200 MG TABLET PO SCH (20:05)
[2019-11-22] MEDS: BusPIRone HCL 15 MG TABLET PO SCH ×2 (08:52→17:00)
[2019-11-22] MEDS: HALOPERIDOL 5 MG TABLET PO PRN (08:52)
[2019-11-22] MEDS: PHENYTOIN SODIUM 100 MG ER CAPSULE PO SCH (08:52)
[2019-11-22] MEDS: MULTIVITAMINS WITH MINERALS, THERAPEUTIC TABLET PO SCH (08:52)
[2019-11-22] MEDS: VENLAFAXINE HCL 150 MG ER CAPSULE PO SCH (08:52)
[2019-11-22] MEDS: METOPROLOL TARTRATE 50 MG TABLET PO SCH (08:52)
[2019-11-22] MEDS: LORazepam 2 MG TABLET PO PRN (08:53)
[2019-11-22] MEDS: LACOSAMIDE 100 MG TABLET PO SCH ×2 (08:53→17:00)
[2019-11-22 16:52] VITALS: BP 97/58
[2019-11-22] MEDS: QUEtiapine FUMARATE 200 MG TABLET PO SCH (20:09)
[2019-11-23] MEDS: PHENYTOIN SODIUM 100 MG ER CAPSULE PO SCH (08:04)
[2019-11-23] MEDS: MULTIVITAMINS WITH MINERALS, THERAPEUTIC TABLET PO SCH (08:04)
[2019-11-23] MEDS: LACOSAMIDE 100 MG TABLET PO SCH ×2 (08:04→16:18)
[2019-11-23] MEDS: BusPIRone HCL 15 MG TABLET PO SCH ×2 (08:04→16:18)
[2019-11-23] MEDS: VENLAFAXINE HCL 150 MG ER CAPSULE PO SCH (08:04)
[2019-11-23] MEDS: METOPROLOL TARTRATE 50 MG TABLET PO SCH (09:00)
[2019-11-23 10:54] VITALS: BP 110/70
[2019-11-23] MEDS: HALOPERIDOL 5 MG TABLET PO PRN (10:56)
[2019-11-23] MEDS: QUEtiapine FUMARATE 200 MG TABLET PO SCH (20:54)
[2019-11-24 01:30] VITALS: BP 110/70
[2019-11-24 08:43] VITALS: BP 115/78
[2019-11-24] MEDS: VENLAFAXINE HCL 150 MG ER CAPSULE PO SCH (10:57)
[2019-11-24] MEDS: BusPIRone HCL 15 MG TABLET PO SCH ×2 (10:57→17:00)
[2019-11-24] MEDS: PHENYTOIN SODIUM 100 MG ER CAPSULE PO SCH (10:57)
[2019-11-24] MEDS: MULTIVITAMINS WITH MINERALS, THERAPEUTIC TABLET PO SCH (10:58)
[2019-11-24] MEDS: LACOSAMIDE 100 MG TABLET PO SCH ×2 (10:58→17:00)
[2019-11-24] MEDS: METOPROLOL TARTRATE 50 MG TABLET PO SCH (10:58)
[2019-11-24 16:22] VITALS: BP 121/84
[2019-11-24 16:23] VITALS: BP 121/84
[2019-11-24] MEDS: QUEtiapine FUMARATE 200 MG TABLET PO SCH (21:36)
[2019-11-25] MEDS: METOPROLOL TARTRATE 50 MG TABLET PO SCH (09:00)
[2019-11-25] MEDS: LACOSAMIDE 100 MG TABLET PO SCH ×2 (10:00→17:00)
[2019-11-25] MEDS: VENLAFAXINE HCL 150 MG ER CAPSULE PO SCH (10:00)
[2019-11-25] MEDS: MULTIVITAMINS WITH MINERALS, THERAPEUTIC TABLET PO SCH (10:00)
[2019-11-25] MEDS: PHENYTOIN SODIUM 100 MG ER CAPSULE PO SCH (10:00)
[2019-11-25] MEDS: BusPIRone HCL 15 MG TABLET PO SCH ×2 (10:00→17:00)
[2019-11-25] MEDS: HALOPERIDOL 5 MG TABLET PO PRN ×2 (11:14→15:14)
[2019-11-25 16:00] VITALS: BP 120/80
[2019-11-25] MEDS: QUEtiapine FUMARATE 100 MG TABLET PO SCH (17:00)
[2019-11-25] MEDS: QUEtiapine FUMARATE 300 MG TABLET PO SCH (21:00)
[2019-11-26] MEDS: QUEtiapine FUMARATE 100 MG TABLET PO SCH ×3 (08:15→16:34)
[2019-11-26] MEDS: MULTIVITAMINS WITH MINERALS, THERAPEUTIC TABLET PO SCH ×2 (08:15→09:00)
[2019-11-26] MEDS: LACOSAMIDE 100 MG TABLET PO SCH ×4 (08:15→16:34)
[2019-11-26] MEDS: VENLAFAXINE HCL 150 MG ER CAPSULE PO SCH ×2 (08:16→09:00)
[2019-11-26] MEDS: BusPIRone HCL 15 MG TABLET PO SCH ×3 (08:16→16:34)
[2019-11-26] MEDS: PHENYTOIN SODIUM 100 MG ER CAPSULE PO SCH ×2 (08:16→09:00)
[2019-11-26] MEDS: METOPROLOL TARTRATE 50 MG TABLET PO SCH (09:00)
[2019-11-26 16:06] VITALS: BP 101/90
[2019-11-26] MEDS: QUEtiapine FUMARATE 300 MG TABLET PO SCH (20:37)
[2019-11-27] MEDS: METOPROLOL TARTRATE 50 MG TABLET PO SCH (09:00)
[2019-11-27] MEDS: QUEtiapine FUMARATE 100 MG TABLET PO SCH ×2 (09:26→16:49)
[2019-11-27] MEDS: VENLAFAXINE HCL 150 MG ER CAPSULE PO SCH (09:26)
[2019-11-27] MEDS: LACOSAMIDE 100 MG TABLET PO SCH ×2 (09:26→16:49)
[2019-11-27] MEDS: BusPIRone HCL 15 MG TABLET PO SCH ×2 (09:26→16:49)
[2019-11-27] MEDS: PHENYTOIN SODIUM 100 MG ER CAPSULE PO SCH (09:26)
[2019-11-27] MEDS: MULTIVITAMINS WITH MINERALS, THERAPEUTIC TABLET PO SCH (09:26)
[2019-11-27] MEDS: QUEtiapine FUMARATE 300 MG TABLET PO SCH (20:31)
[2019-11-28 08:33] VITALS: BP 103/65
[2019-11-28] MEDS: MULTIVITAMINS WITH MINERALS, THERAPEUTIC TABLET PO SCH (09:00)
[2019-11-28] MEDS: QUEtiapine FUMARATE 100 MG TABLET PO SCH ×2 (09:00→17:00)
[2019-11-28] MEDS: PHENYTOIN SODIUM 100 MG ER CAPSULE PO SCH (09:00)
[2019-11-28] MEDS: VENLAFAXINE HCL 150 MG ER CAPSULE PO SCH (09:00)
[2019-11-28] MEDS: LACOSAMIDE 100 MG TABLET PO SCH ×2 (09:00→17:00)
[2019-11-28] MEDS: BusPIRone HCL 15 MG TABLET PO SCH ×2 (09:00→17:00)
[2019-11-28] MEDS: METOPROLOL TARTRATE 50 MG TABLET PO SCH (09:00)
[2019-11-28 16:16] VITALS: BP 120/86
[2019-11-28] MEDS: QUEtiapine FUMARATE 300 MG TABLET PO SCH (21:00)
[2019-11-29] MEDS: PHENYTOIN SODIUM 100 MG ER CAPSULE PO SCH (09:30)
[2019-11-29] MEDS: VENLAFAXINE HCL 150 MG ER CAPSULE PO SCH (09:30)
[2019-11-29] MEDS: BusPIRone HCL 15 MG TABLET PO SCH ×2 (09:30→17:00)
[2019-11-29] MEDS: METOPROLOL TARTRATE 50 MG TABLET PO SCH (09:30)
[2019-11-29] MEDS: MULTIVITAMINS WITH MINERALS, THERAPEUTIC TABLET PO SCH (09:31)
[2019-11-29] MEDS: LACOSAMIDE 100 MG TABLET PO SCH ×2 (09:35→17:00)
[2019-11-29] MEDS: QUEtiapine FUMARATE 100 MG TABLET PO SCH ×2 (09:35→17:00)
[2019-11-29] MEDS: QUEtiapine FUMARATE 300 MG TABLET PO SCH (21:00)
[2019-11-30] MEDS: PHENYTOIN SODIUM 100 MG ER CAPSULE PO SCH ×2 (08:07→09:00)
[2019-11-30] MEDS: BusPIRone HCL 15 MG TABLET PO SCH ×3 (08:07→17:00)
[2019-11-30] MEDS: METOPROLOL TARTRATE 50 MG TABLET PO SCH ×2 (08:07→09:00)
[2019-11-30] MEDS: MULTIVITAMINS WITH MINERALS, THERAPEUTIC TABLET PO SCH ×2 (08:08→09:00)
[2019-11-30] MEDS: LACOSAMIDE 100 MG TABLET PO SCH ×3 (08:08→17:00)
[2019-11-30] MEDS: VENLAFAXINE HCL 150 MG ER CAPSULE PO SCH ×2 (08:08→09:00)
[2019-11-30] MEDS: QUEtiapine FUMARATE 100 MG TABLET PO SCH ×3 (08:08→17:00)
[2019-11-30 08:32] VITALS: BP 133/71
[2019-11-30 16:11] VITALS: BP 110/79
[2019-11-30] MEDS: QUEtiapine FUMARATE 300 MG TABLET PO SCH (21:00)
[2019-12-01] MEDS: QUEtiapine FUMARATE 100 MG TABLET PO SCH ×2 (09:00→17:00)
[2019-12-01] MEDS: MULTIVITAMINS WITH MINERALS, THERAPEUTIC TABLET PO SCH (09:00)
[2019-12-01] MEDS: BusPIRone HCL 15 MG TABLET PO SCH ×2 (09:00→17:00)
[2019-12-01] MEDS: LACOSAMIDE 100 MG TABLET PO SCH ×2 (09:00→17:00)
[2019-12-01] MEDS: PHENYTOIN SODIUM 100 MG ER CAPSULE PO SCH (09:00)
[2019-12-01] MEDS: METOPROLOL TARTRATE 50 MG TABLET PO SCH (09:00)
[2019-12-01] MEDS: VENLAFAXINE HCL 150 MG ER CAPSULE PO SCH (09:00)
[2019-12-01] MEDS: QUEtiapine FUMARATE 300 MG TABLET PO SCH (21:00)
[2019-12-02 08:46] VITALS: BP 129/81
[2019-12-02] MEDS: PHENYTOIN SODIUM 100 MG ER CAPSULE PO SCH (09:05)
[2019-12-02] MEDS: METOPROLOL TARTRATE 50 MG TABLET PO SCH (09:06)
[2019-12-02] MEDS: QUEtiapine FUMARATE 100 MG TABLET PO SCH ×2 (09:06→17:00)
[2019-12-02] MEDS: BusPIRone HCL 15 MG TABLET PO SCH ×2 (09:06→17:00)
[2019-12-02] MEDS: LACOSAMIDE 100 MG TABLET PO SCH ×2 (09:06→17:00)
[2019-12-02] MEDS: VENLAFAXINE HCL 150 MG ER CAPSULE PO SCH (09:10)
[2019-12-02] MEDS: MULTIVITAMINS WITH MINERALS, THERAPEUTIC TABLET PO SCH (09:12)
[2019-12-02 16:15] VITALS: BP 11/76
[2019-12-02] MEDS: QUEtiapine FUMARATE 300 MG TABLET PO SCH (20:58)
[2019-12-03] MEDS: METOPROLOL TARTRATE 50 MG TABLET PO SCH (09:00)
[2019-12-03 09:07] VITALS: BP 106/67
[2019-12-03] MEDS: PHENYTOIN SODIUM 100 MG ER CAPSULE PO SCH (09:10)
[2019-12-03] MEDS: LACOSAMIDE 100 MG TABLET PO SCH ×2 (09:10→17:00)
[2019-12-03] MEDS: VENLAFAXINE HCL 150 MG ER CAPSULE PO SCH (09:10)
[2019-12-03] MEDS: MULTIVITAMINS WITH MINERALS, THERAPEUTIC TABLET PO SCH (09:11)
[2019-12-03] MEDS: BusPIRone HCL 15 MG TABLET PO SCH ×2 (09:11→17:00)
[2019-12-03] MEDS: QUEtiapine FUMARATE 100 MG TABLET PO SCH ×2 (12:14→17:00)
[2019-12-03 16:23] VITALS: BP 112/67
[2019-12-03] MEDS: QUEtiapine FUMARATE 300 MG TABLET PO SCH (20:29)
[2019-12-04] MEDS: VENLAFAXINE HCL 150 MG ER CAPSULE PO SCH (09:22)
[2019-12-04] MEDS: BusPIRone HCL 15 MG TABLET PO SCH ×2 (09:22→17:00)
[2019-12-04] MEDS: METOPROLOL TARTRATE 50 MG TABLET PO SCH (09:23)
[2019-12-04] MEDS: LACOSAMIDE 100 MG TABLET PO SCH ×2 (09:23→17:00)
[2019-12-04] MEDS: QUEtiapine FUMARATE 100 MG TABLET PO SCH ×2 (09:23→17:00)
[2019-12-04] MEDS: PHENYTOIN SODIUM 100 MG ER CAPSULE PO SCH (09:23)
[2019-12-04] MEDS: MULTIVITAMINS WITH MINERALS, THERAPEUTIC TABLET PO SCH (09:23)
[2019-12-04 09:37] VITALS: BP 110/80
[2019-12-04 16:19] VITALS: BP 109/54
[2019-12-04] MEDS: QUEtiapine FUMARATE 300 MG TABLET PO SCH (20:33)
[2019-12-05] MEDS: METOPROLOL TARTRATE 50 MG TABLET PO SCH (09:00)
[2019-12-05] MEDS: VENLAFAXINE HCL 150 MG ER CAPSULE PO SCH (09:01)
[2019-12-05] MEDS: LACOSAMIDE 100 MG TABLET PO SCH ×2 (09:01→16:38)
[2019-12-05] MEDS: MULTIVITAMINS WITH MINERALS, THERAPEUTIC TABLET PO SCH (09:01)
[2019-12-05] MEDS: QUEtiapine FUMARATE 100 MG TABLET PO SCH ×2 (09:01→16:38)
[2019-12-05] MEDS: BusPIRone HCL 15 MG TABLET PO SCH ×2 (09:01→16:38)
[2019-12-05] MEDS: PHENYTOIN SODIUM 100 MG ER CAPSULE PO SCH (09:01)
[2019-12-05 09:14] VITALS: BP 106/65
[2019-12-05] MEDS: HALOPERIDOL 5 MG TABLET PO PRN (13:23)
[2019-12-05] MEDS: QUEtiapine FUMARATE 300 MG TABLET PO SCH (21:00)
[2019-12-06] MEDS: LACOSAMIDE 100 MG TABLET PO SCH ×2 (09:00→17:00)
[2019-12-06] MEDS: BusPIRone HCL 15 MG TABLET PO SCH ×2 (09:00→17:00)
[2019-12-06] MEDS: VENLAFAXINE HCL 150 MG ER CAPSULE PO SCH (09:00)
[2019-12-06] MEDS: METOPROLOL TARTRATE 50 MG TABLET PO SCH (09:00)
[2019-12-06] MEDS: PHENYTOIN SODIUM 100 MG ER CAPSULE PO SCH (09:00)
[2019-12-06] MEDS: MULTIVITAMINS WITH MINERALS, THERAPEUTIC TABLET PO SCH (09:00)
[2019-12-06] MEDS: QUEtiapine FUMARATE 100 MG TABLET PO SCH ×2 (09:00→17:00)
[2019-12-06] MEDS: QUEtiapine FUMARATE 300 MG TABLET PO SCH (21:00)
[2019-12-07 02:17] VITALS: BP 130/80
[2019-12-07] MEDS: QUEtiapine FUMARATE 100 MG TABLET PO SCH ×2 (09:00→16:48)
[2019-12-07] MEDS: PHENYTOIN SODIUM 100 MG ER CAPSULE PO SCH (09:00)
[2019-12-07] MEDS: VENLAFAXINE HCL 150 MG ER CAPSULE PO SCH (09:00)
[2019-12-07] MEDS: METOPROLOL TARTRATE 50 MG TABLET PO SCH (09:00)
[2019-12-07] MEDS: MULTIVITAMINS WITH MINERALS, THERAPEUTIC TABLET PO SCH (09:00)
[2019-12-07] MEDS: BusPIRone HCL 15 MG TABLET PO SCH ×2 (09:00→16:48)
[2019-12-07] MEDS: LACOSAMIDE 100 MG TABLET PO SCH ×2 (09:00→16:48)
[2019-12-07] MEDS: HALOPERIDOL 5 MG TABLET PO PRN (12:49)
[2019-12-07 16:12] VITALS: BP 109/75
[2019-12-07] MEDS: QUEtiapine FUMARATE 300 MG TABLET PO SCH (20:38)
[2019-12-08] MEDS: QUEtiapine FUMARATE 100 MG TABLET PO SCH ×2 (11:24→17:00)
[2019-12-08] MEDS: VENLAFAXINE HCL 150 MG ER CAPSULE PO SCH (11:24)
[2019-12-08] MEDS: BusPIRone HCL 15 MG TABLET PO SCH ×2 (11:24→17:00)
[2019-12-08] MEDS: METOPROLOL TARTRATE 50 MG TABLET PO SCH (11:24)
[2019-12-08] MEDS: LACOSAMIDE 100 MG TABLET PO SCH ×2 (11:24→17:00)
[2019-12-08] MEDS: PHENYTOIN SODIUM 100 MG ER CAPSULE PO SCH (11:24)
[2019-12-08] MEDS: MULTIVITAMINS WITH MINERALS, THERAPEUTIC TABLET PO SCH (11:24)
[2019-12-08 16:00] VITALS: BP 108/65
[2019-12-08] MEDS: QUEtiapine FUMARATE 300 MG TABLET PO SCH (21:54)
[2019-12-09] MEDS: QUEtiapine FUMARATE 100 MG TABLET PO SCH ×3 (09:00→17:39)
[2019-12-09] MEDS: PHENYTOIN SODIUM 100 MG ER CAPSULE PO SCH (10:21)
[2019-12-09] MEDS: VENLAFAXINE HCL 150 MG ER CAPSULE PO SCH (10:21)
[2019-12-09] MEDS: LORazepam 2 MG TABLET PO PRN (10:21)
[2019-12-09] MEDS: HALOPERIDOL 5 MG TABLET PO PRN (10:21)
[2019-12-09] MEDS: BusPIRone HCL 15 MG TABLET PO SCH ×2 (10:22→17:39)
[2019-12-09] MEDS: METOPROLOL TARTRATE 50 MG TABLET PO SCH (10:22)
[2019-12-09] MEDS: LACOSAMIDE 100 MG TABLET PO SCH ×2 (10:22→17:39)
[2019-12-09] MEDS: MULTIVITAMINS WITH MINERALS, THERAPEUTIC TABLET PO SCH (10:23)
[2019-12-09] MEDS ORDERED: ARIPiprazole LAUROXIL ER SUSPENSION 1064 MG/3.9 ML SYRINGE IM ONE (15:00)
[2019-12-09 16:00] VITALS: BP 96/63
[2019-12-09] MEDS: QUEtiapine FUMARATE 300 MG TABLET PO SCH (21:18)
[2019-12-10] MEDS: LORazepam 2 MG TABLET PO PRN (08:06)
[2019-12-10] MEDS: METOPROLOL TARTRATE 50 MG TABLET PO SCH (08:06)
[2019-12-10] MEDS: LACOSAMIDE 100 MG TABLET PO SCH ×2 (08:06→16:26)
[2019-12-10] MEDS: ACETAMINOPHEN 325 MG TABLET PO PRN (08:06)
[2019-12-10] MEDS: QUEtiapine FUMARATE 100 MG TABLET PO SCH ×2 (08:06→16:26)
[2019-12-10] MEDS: BusPIRone HCL 15 MG TABLET PO SCH ×2 (08:07→16:26)
[2019-12-10] MEDS: VENLAFAXINE HCL 150 MG ER CAPSULE PO SCH (08:07)
[2019-12-10] MEDS: HALOPERIDOL 5 MG TABLET PO PRN (08:07)
[2019-12-10] MEDS: PHENYTOIN SODIUM 100 MG ER CAPSULE PO SCH (08:08)
[2019-12-10] MEDS: MULTIVITAMINS WITH MINERALS, THERAPEUTIC TABLET PO SCH (08:08)
[2019-12-10 08:30] VITALS: BP 117/74
[2019-12-10] MEDS: QUEtiapine FUMARATE 300 MG TABLET PO SCH (20:14)
[2019-12-11] MEDS: METOPROLOL TARTRATE 50 MG TABLET PO SCH (08:55)
[2019-12-11] MEDS: HALOPERIDOL 5 MG TABLET PO PRN (08:55)
[2019-12-11] MEDS: LORazepam 2 MG TABLET PO PRN (08:55)
[2019-12-11] MEDS: QUEtiapine FUMARATE 100 MG TABLET PO SCH ×2 (08:55→16:23)
[2019-12-11] MEDS: MULTIVITAMINS WITH MINERALS, THERAPEUTIC TABLET PO SCH (08:55)
[2019-12-11] MEDS: LACOSAMIDE 100 MG TABLET PO SCH ×2 (08:55→16:23)
[2019-12-11] MEDS: PHENYTOIN SODIUM 100 MG ER CAPSULE PO SCH (08:58)
[2019-12-11] MEDS: BusPIRone HCL 15 MG TABLET PO SCH ×2 (09:01→17:24)
[2019-12-11 09:12] VITALS: BP 105/73
[2019-12-11] MEDS: VENLAFAXINE HCL 150 MG ER CAPSULE PO SCH (10:26)
[2019-12-11 17:43] VITALS: BP 99/57
[2019-12-11] MEDS: QUEtiapine FUMARATE 300 MG TABLET PO SCH (20:40)
[2019-12-12] MEDS: VENLAFAXINE HCL 150 MG ER CAPSULE PO SCH (08:36)
[2019-12-12] MEDS: METOPROLOL TARTRATE 50 MG TABLET PO SCH (08:37)
[2019-12-12] MEDS: QUEtiapine FUMARATE 100 MG TABLET PO SCH ×2 (08:37→17:00)
[2019-12-12] MEDS: BusPIRone HCL 15 MG TABLET PO SCH ×2 (08:37→17:00)
[2019-12-12] MEDS: LACOSAMIDE 100 MG TABLET PO SCH ×2 (08:37→17:00)
[2019-12-12] MEDS: MULTIVITAMINS WITH MINERALS, THERAPEUTIC TABLET PO SCH (08:37)
[2019-12-12] MEDS: PHENYTOIN SODIUM 100 MG ER CAPSULE PO SCH (08:37)
[2019-12-12 08:49] VITALS: BP 110/75
[2019-12-12] MEDS: HALOPERIDOL 5 MG TABLET PO PRN (09:35)
[2019-12-12 16:24] VITALS: BP 115/71
[2019-12-12] MEDS: QUEtiapine FUMARATE 300 MG TABLET PO SCH (21:00)
[2019-12-13 08:56] VITALS: BP 124/77
[2019-12-13] MEDS: PHENYTOIN SODIUM 100 MG ER CAPSULE PO SCH (11:35)
[2019-12-13] MEDS: BusPIRone HCL 15 MG TABLET PO SCH ×2 (11:35→17:31)
[2019-12-13] MEDS: METOPROLOL TARTRATE 50 MG TABLET PO SCH (11:35)
[2019-12-13] MEDS: VENLAFAXINE HCL 150 MG ER CAPSULE PO SCH (11:36)
[2019-12-13] MEDS: LORazepam 2 MG TABLET PO PRN (11:37)
[2019-12-13] MEDS: LACOSAMIDE 100 MG TABLET PO SCH ×2 (11:37→17:31)
[2019-12-13] MEDS: QUEtiapine FUMARATE 100 MG TABLET PO SCH ×2 (11:38→17:00)
[2019-12-13] MEDS: HALOPERIDOL 5 MG TABLET PO PRN (11:38)
[2019-12-13] MEDS: MULTIVITAMINS WITH MINERALS, THERAPEUTIC TABLET PO SCH (11:38)
[2019-12-13 17:27] VITALS: BP 108/70
[2019-12-13] MEDS: QUEtiapine FUMARATE 300 MG TABLET PO SCH (20:10)
[2019-12-14] MEDS: BusPIRone HCL 15 MG TABLET PO SCH ×2 (08:14→16:52)
[2019-12-14] MEDS: LACOSAMIDE 100 MG TABLET PO SCH ×2 (08:14→16:53)
[2019-12-14] MEDS: VENLAFAXINE HCL 150 MG ER CAPSULE PO SCH (08:15)
[2019-12-14] MEDS: METOPROLOL TARTRATE 50 MG TABLET PO SCH (08:15)
[2019-12-14] MEDS: PHENYTOIN SODIUM 100 MG ER CAPSULE PO SCH (08:15)
[2019-12-14] MEDS: MULTIVITAMINS WITH MINERALS, THERAPEUTIC TABLET PO SCH (08:15)
[2019-12-14] MEDS: QUEtiapine FUMARATE 100 MG TABLET PO SCH ×2 (08:29→16:54)
[2019-12-14 08:57] VITALS: BP 100/61
[2019-12-14] MEDS: HALOPERIDOL 5 MG TABLET PO PRN (12:34)
[2019-12-14 17:00] VITALS: BP 108/63
[2019-12-14] MEDS: QUEtiapine FUMARATE 300 MG TABLET PO SCH (20:01)
[2019-12-15] MEDS: PHENYTOIN SODIUM 100 MG ER CAPSULE PO SCH (08:44)
[2019-12-15] MEDS: METOPROLOL TARTRATE 50 MG TABLET PO SCH (08:44)
[2019-12-15] MEDS: LACOSAMIDE 100 MG TABLET PO SCH ×2 (08:44→17:00)
[2019-12-15] MEDS: VENLAFAXINE HCL 150 MG ER CAPSULE PO SCH (08:44)
[2019-12-15] MEDS: MULTIVITAMINS WITH MINERALS, THERAPEUTIC TABLET PO SCH (08:44)
[2019-12-15] MEDS: BusPIRone HCL 15 MG TABLET PO SCH ×2 (08:45→17:00)
[2019-12-15] MEDS: QUEtiapine FUMARATE 100 MG TABLET PO SCH ×2 (08:47→17:00)
[2019-12-15 09:08] VITALS: BP 117/79
[2019-12-15] MEDS: HALOPERIDOL 5 MG TABLET PO PRN (09:20)
[2019-12-15 16:54] VITALS: BP 113/82
[2019-12-15] MEDS: QUEtiapine FUMARATE 300 MG TABLET PO SCH (21:00)
[2019-12-16] MEDS: PHENYTOIN SODIUM 100 MG ER CAPSULE PO SCH (08:54)
[2019-12-16] MEDS: METOPROLOL TARTRATE 50 MG TABLET PO SCH (08:54)
[2019-12-16] MEDS: BusPIRone HCL 15 MG TABLET PO SCH ×2 (08:55→17:00)
[2019-12-16] MEDS: VENLAFAXINE HCL 150 MG ER CAPSULE PO SCH (08:55)
[2019-12-16] MEDS: QUEtiapine FUMARATE 100 MG TABLET PO SCH ×2 (08:55→17:00)
[2019-12-16] MEDS: LACOSAMIDE 100 MG TABLET PO SCH ×2 (08:55→17:00)
[2019-12-16] MEDS: MULTIVITAMINS WITH MINERALS, THERAPEUTIC TABLET PO SCH (08:55)
[2019-12-16 10:28] VITALS: BP 126/82
[2019-12-16 16:00] VITALS: BP 114/80
[2019-12-16] MEDS: QUEtiapine FUMARATE 300 MG TABLET PO SCH (20:09)
[2019-12-17 01:20] VITALS: BP 108/66
[2019-12-17 08:00] VITALS: BP 103/71
[2019-12-17] MEDS: PHENYTOIN SODIUM 100 MG ER CAPSULE PO SCH (08:38)
[2019-12-17] MEDS: LACOSAMIDE 100 MG TABLET PO SCH ×2 (08:38→17:13)
[2019-12-17] MEDS: LORazepam 2 MG TABLET PO PRN (08:38)
[2019-12-17] MEDS: BusPIRone HCL 15 MG TABLET PO SCH ×2 (08:38→17:07)
[2019-12-17] MEDS: METOPROLOL TARTRATE 50 MG TABLET PO SCH (08:39)
[2019-12-17] MEDS: QUEtiapine FUMARATE 100 MG TABLET PO SCH ×3 (08:39→17:13)
[2019-12-17] MEDS: VENLAFAXINE HCL 150 MG ER CAPSULE PO SCH (08:39)
[2019-12-17] MEDS: MULTIVITAMINS WITH MINERALS, THERAPEUTIC TABLET PO SCH (08:40)
[2019-12-17 16:52] VITALS: BP 107/66
[2019-12-17] MEDS: QUEtiapine FUMARATE 300 MG TABLET PO SCH (20:33)
[2019-12-18 00:17] VITALS: BP 120/73
[2019-12-18] MEDS: HALOPERIDOL 5 MG TABLET PO PRN ×2 (03:21→23:19)
[2019-12-18 08:00] VITALS: BP 132/70
[2019-12-18] MEDS: QUEtiapine FUMARATE 100 MG TABLET PO SCH ×2 (08:42→17:38)
[2019-12-18] MEDS: MULTIVITAMINS WITH MINERALS, THERAPEUTIC TABLET PO SCH (08:42)
[2019-12-18] MEDS: VENLAFAXINE HCL 150 MG ER CAPSULE PO SCH (08:45)
[2019-12-18] MEDS: METOPROLOL TARTRATE 50 MG TABLET PO SCH (08:45)
[2019-12-18] MEDS: PHENYTOIN SODIUM 100 MG ER CAPSULE PO SCH (08:47)
[2019-12-18] MEDS: BusPIRone HCL 15 MG TABLET PO SCH ×2 (08:48→17:38)
[2019-12-18 10:38] VITALS: BP 132/70
[2019-12-18] MEDS: LACOSAMIDE 100 MG TABLET PO SCH ×2 (13:22→17:53)
[2019-12-18 16:27] VITALS: BP 101/60
[2019-12-18] MEDS: QUEtiapine FUMARATE 300 MG TABLET PO SCH (20:23)
[2019-12-19] VITALS: BP 122/74
[2019-12-19] MEDS: ACETAMINOPHEN 325 MG TABLET PO PRN (00:03)
[2019-12-19] MEDS: LACOSAMIDE 100 MG TABLET PO SCH ×2 (08:04→17:00)
[2019-12-19] MEDS: METOPROLOL TARTRATE 50 MG TABLET PO SCH (08:04)
[2019-12-19] MEDS: MULTIVITAMINS WITH MINERALS, THERAPEUTIC TABLET PO SCH (08:05)
[2019-12-19] MEDS: QUEtiapine FUMARATE 100 MG TABLET PO SCH ×3 (08:05→17:00)
[2019-12-19] MEDS: VENLAFAXINE HCL 150 MG ER CAPSULE PO SCH (08:06)
[2019-12-19] MEDS: PHENYTOIN SODIUM 100 MG ER CAPSULE PO SCH (08:06)
[2019-12-19] MEDS: BusPIRone HCL 15 MG TABLET PO SCH ×2 (08:06→17:00)
[2019-12-19 10:43] VITALS: BP 116/78
[2019-12-19 16:11] VITALS: BP 115/81
[2019-12-19] MEDS: QUEtiapine FUMARATE 300 MG TABLET PO SCH ×2 (21:00→21:14)
[2019-12-20] MEDS: MULTIVITAMINS WITH MINERALS, THERAPEUTIC TABLET PO SCH (09:00)
[2019-12-20] MEDS: BusPIRone HCL 15 MG TABLET PO SCH ×2 (09:00→17:00)
[2019-12-20] MEDS: METOPROLOL TARTRATE 50 MG TABLET PO SCH (09:00)
[2019-12-20] MEDS: LACOSAMIDE 100 MG TABLET PO SCH ×2 (09:00→17:00)
[2019-12-20] MEDS: VENLAFAXINE HCL 150 MG ER CAPSULE PO SCH (09:00)
[2019-12-20] MEDS: PHENYTOIN SODIUM 100 MG ER CAPSULE PO SCH (09:00)
[2019-12-20] MEDS: QUEtiapine FUMARATE 100 MG TABLET PO SCH ×2 (09:00→17:00)
[2019-12-20] MEDS ORDERED: VENL-68 PO (14:06)
[2019-12-20] MEDS ORDERED: QUET100T PO (14:06)
[2019-12-20] MEDS ORDERED: QUET300T2 PO (14:06)
[2019-12-20] MEDS ORDERED: MULT-1133 PO (14:54)
[2019-12-20 16:21] VITALS: BP 127/96
[2019-12-20] MEDS: QUEtiapine FUMARATE 300 MG TABLET PO SCH (21:00)
[2019-12-21 00:05] VITALS: BP 117/71
[2019-12-21] MEDS: PHENYTOIN SODIUM 100 MG ER CAPSULE PO SCH (07:48)
[2019-12-21] MEDS: BusPIRone HCL 15 MG TABLET PO SCH ×2 (07:48→17:27)
[2019-12-21] MEDS: VENLAFAXINE HCL 150 MG ER CAPSULE PO SCH (07:49)
[2019-12-21] MEDS: LACOSAMIDE 100 MG TABLET PO SCH ×2 (07:49→17:27)
[2019-12-21] MEDS: MULTIVITAMINS WITH MINERALS, THERAPEUTIC TABLET PO SCH (07:49)
[2019-12-21] MEDS: METOPROLOL TARTRATE 50 MG TABLET PO SCH (07:49)
[2019-12-21] MEDS: QUEtiapine FUMARATE 100 MG TABLET PO SCH ×2 (07:52→17:00)
[2019-12-21 08:15] VITALS: BP 127/77
[2019-12-21 16:06] VITALS: BP 137/90
[2019-12-21] MEDS: QUEtiapine FUMARATE 300 MG TABLET PO SCH (20:56)
[2019-12-22 08:27] VITALS: BP 129/76
[2019-12-22] MEDS: VENLAFAXINE HCL 150 MG ER CAPSULE PO SCH (09:00)
[2019-12-22] MEDS: METOPROLOL TARTRATE 50 MG TABLET PO SCH (09:00)
[2019-12-22] MEDS: MULTIVITAMINS WITH MINERALS, THERAPEUTIC TABLET PO SCH (09:00)
[2019-12-22] MEDS: BusPIRone HCL 15 MG TABLET PO SCH ×2 (09:00→17:00)
[2019-12-22] MEDS: QUEtiapine FUMARATE 100 MG TABLET PO SCH ×2 (09:00→17:00)
[2019-12-22] MEDS: LACOSAMIDE 100 MG TABLET PO SCH ×2 (09:00→17:00)
[2019-12-22] MEDS: PHENYTOIN SODIUM 100 MG ER CAPSULE PO SCH (09:00)
[2019-12-22 16:21] VITALS: BP 114/73
[2019-12-22] MEDS: QUEtiapine FUMARATE 300 MG TABLET PO SCH (21:00)
[2019-12-23] MEDS: PHENYTOIN SODIUM 100 MG ER CAPSULE PO SCH (08:18)
[2019-12-23] MEDS: LACOSAMIDE 100 MG TABLET PO SCH (08:18)
[2019-12-23] MEDS: QUEtiapine FUMARATE 100 MG TABLET PO SCH (08:18)
[2019-12-23] MEDS: MULTIVITAMINS WITH MINERALS, THERAPEUTIC TABLET PO SCH (08:18)
[2019-12-23] MEDS: VENLAFAXINE HCL 150 MG ER CAPSULE PO SCH (08:20)
[2019-12-23] MEDS: METOPROLOL TARTRATE 50 MG TABLET PO SCH (08:20)
[2019-12-23] MEDS: BusPIRone HCL 15 MG TABLET PO SCH (08:21)
[2019-12-23 08:53] VITALS: BP 128/84
[2019-12-23] MEDS ORDERED: QUET100T33 PO (11:41)
[2019-12-23] MEDS ORDERED: VENL150C2 PO (11:41)
[2019-12-23] MEDS ORDERED: BUSP15 PO (11:41)
[2019-12-23] MEDS ORDERED: QUET300T18 PO (11:41)
== END 2019-12-23 14:15 | disposition home or self-care (01) | DRG 885 ==
LOC: EMS 17:01 → 3EX 19:30 → 3EI 12-02 21:32 → 3EX 12-11 20:48
DX: F25.1 Schizoaffective disorder, depressive type (principal); Z68.43 Body mass index [BMI] 50.0-59.9, adult; I10 Essential (primary) hypertension; G40.909 Epilepsy, unspecified, not intractable, without status epilepticus; F94.0 Selective mutism; J44.9 Chronic obstructive pulmonary disease, unspecified; K59.00 Constipation, unspecified; F41.9 Anxiety disorder, unspecified; E66.01 Morbid (severe) obesity due to excess calories; Z87.891 Personal history of nicotine dependence; Z91.5 Personal history of self-harm; Z79.899 Other long term (current) drug therapy; Z03.818 Encounter for observation for suspected exposure to other biological agents ruled out
CPT/HCPCS: 80159; 87426; G0378; G0480; J0515; J1200; J1630; J2060

== ENCOUNTER 2019-12-30 19:29 | Emergency (ER) | payer MEDICARE, MEDICAID ==
[~2019-12-30] VITALS: Ht 182.9 cm; Wt 72.7 kg
[~2019-12-30 19:29] MED LIST changes: -CLOZ100T31 PO; +MULT-1133 PO; +QUET100T33 PO; -QUET200T29 PO; +QUET300T18 PO; +VENL-68 PO; -VENL150C2 PO
[2019-12-30] MEDS: LORazepam 2 MG/ML VIAL IM ONE ×2 (19:42→19:51)
[2019-12-30] MEDS ORDERED: DiphenhydrAMINE HCL 50 MG/ML VIAL IM ONE (19:45)
[2019-12-30] MEDS ORDERED: HALOPERIDOL LACTATE 5 MG/ML VIAL IM ONE (19:45)
[2019-12-30 21:57] LABS: BASOPHILS % (AUTO) 0.4 % (0.0-2.0); EOSINOPHILS % (AUTO) 0.1 % (1.0-6.0); HEMATOCRIT 43.8 % (41-53); HEMOGLOBIN 14.9 g/dL (13.5-17.5); LYMPHOCYTES % (AUTO) 6.7 % (22.0-44.0); MEAN CORPUSCULAR HEMOGLOBIN 30.9 pg (26.0-34.0); MEAN CORPUSCULAR HGB CONC 34.1 G/dL (31.0-37.0); MEAN CORPUSCULAR VOLUME 91 fL (80-100); MONOCYTES # (AUTO) 0.6 K/uL (0.1-1.0); MONOCYTES % (AUTO) 4.1 % (2.0-9.0); NEUTROPHILS # (AUTO) 12.9 K/uL (1.8-7.7); PLATELET COUNT (AUTO) 396 K/uL (150-450); RED BLOOD CELL COUNT(AUTO) 4.83 MIL/uL (4.50-5.90); RED CELL DISTRIBUTION WIDTH 14.3 % (11.5-14.5)
[2019-12-30 22:04] LABS: NEUTROPHILS % (AUTO) 88.7 % (40.0-70.0)
[2019-12-30 22:08] LABS: ANION GAP 14 mmol/L (8-16); CALCIUM, TOTAL 9.9 mg/dL (8.8-10.5); CARBON DIOXIDE 25 mmol/L (22-29); CHLORIDE 100 mmol/L (98-107); CREATININE 0.83 mg/dL (0.60-1.30); GLOMERULAR FILTR. RATE CALC > 60 mL/min (>60); GLUCOSE,RANDOM 95 mg/dL (70-110); SODIUM SERUM 139 mmol/L (136-145); UREA NITROGEN, BLOOD 12 mg/dL (7-18)
[2019-12-30 22:14] LABS: ALANINE AMINOTRANSFERASE 32 U/L (12-78); ALBUMIN 4.7 g/dL (3.4-5.0); ALKALINE PHOSPHATASE 128 U/L (46-116); ASPARTATE AMINOTRANSFERASE 24 U/L (15-37); BILIRUBIN,TOTAL 0.6 mg/dL (0.1-1.0); TOTAL PROTEIN, SERUM 8.5 g/dL (6.4-8.2)
[2019-12-31 05:56] VITALS: BP 121/81
== END 2019-12-31 06:03 | disposition home or self-care (01) ==
LOC: EMS 19:32
DX: F25.1 Schizoaffective disorder, depressive type (principal); F94.0 Selective mutism; F17.210 Nicotine dependence, cigarettes, uncomplicated; F15.90 Other stimulant use, unspecified, uncomplicated
CPT/HCPCS: 36415; 80053; 85025; 96372; 99284; G0480; J1200; J1630; J2060

== ENCOUNTER 2022-10-21 13:47 | Inpatient (IN) | payer MEDICARE, MEDICAID ==
[~2022-10-21] VITALS: Ht 180.3 cm; Wt 78.9 kg
[~2022-10-21 13:47] MED LIST changes: +ARIP10642 IM; +DIVA-111 PO; +METO25 PO; -METO50 PO; -MULT-1133 PO; +PHEN100C23 PO; -PHENY100 PO; +QUET100T PO; -QUET100T33 PO; -QUET300T18 PO; +QUET300T2 PO
[2022-10-21 16:46] VITALS: RESP 20; TEMP 98.4
[2022-10-21] MEDS: HALOPERIDOL 5 MG TABLET PO PRN (17:55)
[2022-10-21] MEDS: LORazepam 2 MG TABLET PO PRN (17:55)
[2022-10-21 18:01] VITALS: BP 115/67; PULSE 102; RESP 18; TEMP 98.6; O2SAT 96
[2022-10-21 20:22] VITALS: BP 121/70; PULSE 116; RESP 20; TEMP 98.4; O2SAT 100
[2022-10-21] MEDS: ZOLPIDEM TARTRATE 10 MG TABLET PO PRN (20:50)
[2022-10-22 08:24] LABS: BASOPHILS % (AUTO) 0.6 % (0.0-2.0); EOSINOPHILS % (AUTO) 3.8 % (1.0-6.0); HEMATOCRIT 38.1 % (41-53); HEMOGLOBIN 12.7 g/dL (13.5-17.5); LYMPHOCYTES # (AUTO) 1.6 K/uL (1.0-4.8); LYMPHOCYTES % (AUTO) 23.2 % (22.0-44.0); MEAN CORPUSCULAR HEMOGLOBIN 30.7 pg (26.0-34.0); MEAN CORPUSCULAR HGB CONC 33.4 G/dL (31.0-37.0); MEAN CORPUSCULAR VOLUME 92 fL (80-100); MONOCYTES # (AUTO) 0.7 K/uL (0.1-1.0); MONOCYTES % (AUTO) 10.3 % (2.0-9.0); NEUTROPHILS # (AUTO) 4.4 K/uL (1.8-7.7); NEUTROPHILS % (AUTO) 62.1 % (40.0-70.0); PLATELET COUNT (AUTO) 315 K/uL (150-450); RED BLOOD CELL COUNT(AUTO) 4.14 MIL/uL (4.50-5.90); RED CELL DISTRIBUTION WIDTH 13.3 % (11.5-14.5); WHITE BLOOD COUNT (AUTO) 7.1 K/uL (4.5-11.0)
[2022-10-22 08:35] VITALS: BP 116/81; PULSE 99; RESP 20; TEMP 97.2; O2SAT 99
[2022-10-22 08:37] LABS: HEMOGLOBIN A1C 5.2 % (3.8-5.6)
[2022-10-22 08:40] LABS: ALCOHOL, BLOOD (SERUM) < 3 mg/dL (0-10)
[2022-10-22 09:04] LABS: ALANINE AMINOTRANSFERASE 20 U/L (12-78); ALKALINE PHOSPHATASE 98 U/L (46-116); ASPARTATE AMINOTRANSFERASE 55 U/L (15-37); BILIRUBIN,TOTAL 0.1 mg/dL (0.1-1.0); CALCIUM, TOTAL 8.8 mg/dL (8.8-10.5); CARBON DIOXIDE 26 mmol/L (22-29); CHOL/HDL RATIO 2.1 (4.2-7.3); CHOLESTEROL 116 mg/dL (131-200); CREATININE 0.51 mg/dL (0.60-1.30); FREE T4 (FREE THYROXINE) 0.83 ng/dL (0.76-1.46); GLOMERULAR FILTR. RATE CALC > 60 mL/min (>60); GLUCOSE,RANDOM 86 mg/dL (70-110); HDL CHOLESTEROL 54 mg/dL (40-60); LDL CHOL (CALC.) 47 mg/dL (0-130); T4 (THYROXINE) 5.5 mcg/dL (4.7-13.3); THYROID STIMULATING HORMONE 2.78 uIU/mL (0.36-3.74); TOTAL PROTEIN, SERUM 6.6 g/dL (6.4-8.2); TRIGLYCERIDES 73 mg/dL (15-150); UREA NITROGEN, BLOOD 16 mg/dL (7-18)
[2022-10-22] MEDS: LORazepam 2 MG TABLET PO PRN ×2 (09:10→13:16)
[2022-10-22] MEDS: HALOPERIDOL 5 MG TABLET PO PRN ×2 (09:10→13:16)
[2022-10-22] MEDS: BACITRACIN 28 GM OINTMENT TP SCH ×2 (09:14→17:03)
[2022-10-22 09:26] LABS: ANION GAP 8 mmol/L (8-16); CHLORIDE 105 mmol/L (98-107); POTASSIUM 4.7 mmol/L (3.5-5.1); SODIUM SERUM 139 mmol/L (136-145)
[2022-10-22] MEDS: VENLAFAXINE HCL 150 MG ER CAPSULE PO SCH (13:55)
[2022-10-22] MEDS ORDERED: PETROLATUM,WHITE 28 GM JELLY TP PRN (14:00)
[2022-10-22] MEDS ORDERED: ALBUTEROL SULFATE HFA 90 MCG/PUFF 8 GM INHALER IH PRN (14:00)
[2022-10-22] MEDS ORDERED: MAG HYDROX/ALUMINUM HYD/SIMETH ES 30 ML SUSPENSION UDCUP PO PRN (14:00)
[2022-10-22] MEDS ORDERED: CloNIDine HCL 0.1 MG TABLET PO PRN (14:00)
[2022-10-22] MEDS ORDERED: ONDANSETRON HCL 4 MG TABLET PO PRN (14:00)
[2022-10-22] MEDS ORDERED: MAGNESIUM HYDROXIDE SUSPENSION 30 ML UDCUP PO PRN (14:00)
[2022-10-22] MEDS ORDERED: DOCUSATE SODIUM 100 MG CAPSULE PO PRN (14:00)
[2022-10-22] MEDS ORDERED: GuaiFENesin/D-METHORPHAN [SUGAR-FREE] 200-20MG/10 ML SYRUP UDCUP PO PRN (14:00)
[2022-10-22] MEDS ORDERED: LOPERAMIDE HCL 2 MG CAPSULE PO PRN (14:00)
[2022-10-22] MEDS ORDERED: NICOTINE 14 MG/24 HOUR PATCH TD PRN (14:00)
[2022-10-22] MEDS ORDERED: ACETAMINOPHEN 325 MG TABLET PO PRN (14:00)
[2022-10-22] MEDS: DIVALPROEX SODIUM 250 MG DR TABLET PO SCH (17:01)
[2022-10-22] MEDS: QUEtiapine FUMARATE 100 MG TABLET PO SCH (17:01)
[2022-10-22] MEDS: BusPIRone HCL 15 MG TABLET PO SCH (17:01)
[2022-10-22 20:28] VITALS: RESP 18
[2022-10-22] MEDS: QUEtiapine FUMARATE 300 MG TABLET PO SCH (20:42)
[2022-10-23] MEDS: LORazepam 2 MG TABLET PO PRN (04:33)
[2022-10-23 08:07] LABS: HEMOGLOBIN A1C 5.2 % (3.8-5.6)
[2022-10-23 08:22] LABS: CHOL/HDL RATIO 2.3 (4.2-7.3); PHENYTOIN (DILANTIN) 2.8 mcg/mL (10.0-20.0); THYROID STIMULATING HORMONE 1.89 uIU/mL (0.36-3.74)
[2022-10-23] MEDS: BACITRACIN 28 GM OINTMENT TP SCH ×2 (09:00→17:22)
[2022-10-23] MEDS: DIVALPROEX SODIUM 250 MG DR TABLET PO SCH ×2 (09:10→17:22)
[2022-10-23] MEDS: VENLAFAXINE HCL 150 MG ER CAPSULE PO SCH (09:10)
[2022-10-23] MEDS: QUEtiapine FUMARATE 100 MG TABLET PO SCH ×2 (09:10→17:22)
[2022-10-23] MEDS: BusPIRone HCL 15 MG TABLET PO SCH ×2 (09:10→17:22)
[2022-10-23] MEDS: PHENYTOIN SODIUM 100 MG ER CAPSULE PO SCH (09:10)
[2022-10-23 14:56] VITALS: RESP 16
[2022-10-23 20:12] VITALS: BP 104/66; PULSE 92; RESP 18; TEMP 98.3
[2022-10-23] MEDS: QUEtiapine FUMARATE 300 MG TABLET PO SCH (20:53)
[2022-10-23] MEDS ORDERED: PHENYTOIN SODIUM 100 MG ER CAPSULE PO ONE (21:00)
[2022-10-24] MEDS: QUEtiapine FUMARATE 100 MG TABLET PO SCH ×2 (08:07→17:16)
[2022-10-24] MEDS: DIVALPROEX SODIUM 250 MG DR TABLET PO SCH ×2 (08:07→17:16)
[2022-10-24] MEDS: PHENYTOIN SODIUM 100 MG ER CAPSULE PO SCH (08:07)
[2022-10-24] MEDS: BusPIRone HCL 15 MG TABLET PO SCH ×2 (08:08→17:16)
[2022-10-24] MEDS: LORazepam 2 MG TABLET PO PRN ×2 (08:08→17:16)
[2022-10-24] MEDS: HALOPERIDOL 5 MG TABLET PO PRN ×2 (08:08→17:16)
[2022-10-24] MEDS: VENLAFAXINE HCL 150 MG ER CAPSULE PO SCH (08:08)
[2022-10-24 08:19] VITALS: BP 126/65; PULSE 100; RESP 18; TEMP 97.1; O2SAT 99
[2022-10-24] MEDS: BACITRACIN 28 GM OINTMENT TP SCH ×2 (08:47→17:17)
[2022-10-24 20:18] VITALS: BP 120/68; PULSE 89; RESP 18; TEMP 97.6; O2SAT 97
[2022-10-24] MEDS: QUEtiapine FUMARATE 300 MG TABLET PO SCH (20:29)
[2022-10-25 02:30] VITALS: BP 125/74; PULSE 87; RESP 18; TEMP 97.8
[2022-10-25] MEDS: ZOLPIDEM TARTRATE 10 MG TABLET PO PRN (02:36)
[2022-10-25] MEDS: LORazepam 2 MG TABLET PO PRN ×3 (03:26→16:24)
[2022-10-25] MEDS: QUEtiapine FUMARATE 100 MG TABLET PO SCH ×2 (08:10→16:22)
[2022-10-25] MEDS: DIVALPROEX SODIUM 250 MG DR TABLET PO SCH ×2 (08:10→16:23)
[2022-10-25] MEDS: PHENYTOIN SODIUM 100 MG ER CAPSULE PO SCH (08:10)
[2022-10-25] MEDS: VENLAFAXINE HCL 150 MG ER CAPSULE PO SCH (08:11)
[2022-10-25] MEDS: BusPIRone HCL 15 MG TABLET PO SCH ×2 (08:11→16:21)
[2022-10-25 08:36] VITALS: BP 108/64; PULSE 95; RESP 17; TEMP 98.2; O2SAT 99
[2022-10-25] MEDS: BACITRACIN 28 GM OINTMENT TP SCH ×2 (09:21→16:22)
[2022-10-25] MEDS: HALOPERIDOL 5 MG TABLET PO PRN ×2 (09:51→16:24)
[2022-10-25] MEDS: QUEtiapine FUMARATE 300 MG TABLET PO SCH (20:28)
[2022-10-26 02:09] VITALS: BP 122/79; PULSE 88; RESP 17; TEMP 98.1
[2022-10-26] MEDS: ZOLPIDEM TARTRATE 10 MG TABLET PO PRN (02:47)
[2022-10-26] MEDS: LORazepam 2 MG TABLET PO PRN ×3 (02:47→16:22)
[2022-10-26] MEDS: BusPIRone HCL 15 MG TABLET PO SCH ×2 (08:08→16:21)
[2022-10-26] MEDS: VENLAFAXINE HCL 150 MG ER CAPSULE PO SCH (08:08)
[2022-10-26] MEDS: QUEtiapine FUMARATE 100 MG TABLET PO SCH ×2 (08:08→16:21)
[2022-10-26] MEDS: PHENYTOIN SODIUM 100 MG ER CAPSULE PO SCH (08:08)
[2022-10-26] MEDS: DIVALPROEX SODIUM 250 MG DR TABLET PO SCH ×2 (08:08→16:21)
[2022-10-26] MEDS: BACITRACIN 28 GM OINTMENT TP SCH ×2 (08:10→17:41)
[2022-10-26 08:23] VITALS: BP 100/65; PULSE 89; RESP 17; TEMP 97.7; O2SAT 95
[2022-10-26] MEDS: HALOPERIDOL 5 MG TABLET PO PRN ×2 (09:00→16:22)
[2022-10-26] MEDS ORDERED: LORazepam 2 MG/ML VIAL ONE (12:42)
[2022-10-26] MEDS ORDERED: DiphenhydrAMINE HCL 50 MG/ML VIAL IM ONE (12:45)
[2022-10-26] MEDS ORDERED: LORazepam 2 MG/ML VIAL IM ONE (12:45)
[2022-10-26] MEDS ORDERED: ChlorproMAZINE HCL 50 MG/2 ML AMP IM ONE (12:45)
[2022-10-26 20:00] VITALS: BP 124/76; PULSE 88; RESP 18; TEMP 97.8
[2022-10-26] MEDS: QUEtiapine FUMARATE 300 MG TABLET PO SCH (20:57)
[2022-10-26] MEDS ORDERED: PHENYTOIN 100 MG/4 ML SUSPENSION UDCUP PO ONE (21:00)
[2022-10-27] MEDS: LORazepam 2 MG TABLET PO PRN ×4 (04:09→20:48)
[2022-10-27] MEDS: VENLAFAXINE HCL 150 MG ER CAPSULE PO SCH (08:08)
[2022-10-27] MEDS: BusPIRone HCL 15 MG TABLET PO SCH ×2 (08:08→16:43)
[2022-10-27] MEDS: DIVALPROEX SODIUM 250 MG DR TABLET PO SCH ×2 (08:08→16:43)
[2022-10-27] MEDS: PHENYTOIN SODIUM 100 MG ER CAPSULE PO SCH (08:08)
[2022-10-27] MEDS: HALOPERIDOL 5 MG TABLET PO PRN ×2 (08:08→16:43)
[2022-10-27] MEDS: QUEtiapine FUMARATE 100 MG TABLET PO SCH ×2 (08:08→16:43)
[2022-10-27 08:24] VITALS: BP 100/60; PULSE 100; RESP 17; TEMP 98; O2SAT 99
[2022-10-27] MEDS: BACITRACIN 28 GM OINTMENT TP SCH ×2 (08:29→16:43)
[2022-10-27 20:08] VITALS: BP 104/66; PULSE 86; RESP 18; TEMP 98.2; O2SAT 100
[2022-10-27] MEDS: QUEtiapine FUMARATE 300 MG TABLET PO SCH (20:48)
[2022-10-28 08:30] VITALS: BP 100/61; PULSE 87; RESP 18; TEMP 98.2; O2SAT 98
[2022-10-28] MEDS: BACITRACIN 28 GM OINTMENT TP SCH ×2 (09:00→16:27)
[2022-10-28] MEDS: QUEtiapine FUMARATE 100 MG TABLET PO SCH ×2 (09:35→16:27)
[2022-10-28] MEDS: DIVALPROEX SODIUM 250 MG DR TABLET PO SCH ×2 (09:35→16:27)
[2022-10-28] MEDS: PHENYTOIN SODIUM 100 MG ER CAPSULE PO SCH (09:35)
[2022-10-28] MEDS: BusPIRone HCL 15 MG TABLET PO SCH ×2 (09:35→16:27)
[2022-10-28] MEDS: VENLAFAXINE HCL 150 MG ER CAPSULE PO SCH (09:36)
[2022-10-28] MEDS: LORazepam 2 MG TABLET PO PRN ×2 (09:36→13:48)
[2022-10-28] MEDS: HALOPERIDOL 5 MG TABLET PO PRN (13:48)
[2022-10-28] MEDS: QUEtiapine FUMARATE 300 MG TABLET PO SCH (20:02)
[2022-10-28 21:21] VITALS: BP 95/62; PULSE 93; RESP 18; TEMP 97.4; O2SAT 96
[2022-10-29] MEDS: LORazepam 2 MG TABLET PO PRN ×4 (05:55→20:55)
[2022-10-29] MEDS: HALOPERIDOL 5 MG TABLET PO PRN (05:55)
[2022-10-29 08:24] VITALS: BP 108/64; PULSE 71; RESP 17; TEMP 98.3; O2SAT 94
[2022-10-29] MEDS: PHENYTOIN SODIUM 100 MG ER CAPSULE PO SCH (09:48)
[2022-10-29] MEDS: DIVALPROEX SODIUM 250 MG DR TABLET PO SCH ×2 (09:48→16:51)
[2022-10-29] MEDS: VENLAFAXINE HCL 150 MG ER CAPSULE PO SCH (09:48)
[2022-10-29] MEDS: QUEtiapine FUMARATE 100 MG TABLET PO SCH ×2 (09:49→16:51)
[2022-10-29] MEDS: BACITRACIN 28 GM OINTMENT TP SCH ×2 (09:49→16:51)
[2022-10-29] MEDS: BusPIRone HCL 15 MG TABLET PO SCH ×2 (09:56→16:51)
[2022-10-29 20:12] VITALS: BP 110/62; PULSE 80; RESP 18; TEMP 98; O2SAT 98
[2022-10-29] MEDS: QUEtiapine FUMARATE 300 MG TABLET PO SCH (20:55)
[2022-10-30 08:22] VITALS: BP 96/57; PULSE 75; RESP 17; TEMP 97.7; O2SAT 99
[2022-10-30] MEDS: VENLAFAXINE HCL 150 MG ER CAPSULE PO SCH (08:23)
[2022-10-30] MEDS: DIVALPROEX SODIUM 250 MG DR TABLET PO SCH ×2 (08:23→16:57)
[2022-10-30] MEDS: QUEtiapine FUMARATE 100 MG TABLET PO SCH ×2 (08:23→16:59)
[2022-10-30] MEDS: BusPIRone HCL 15 MG TABLET PO SCH ×2 (08:23→16:57)
[2022-10-30] MEDS: LORazepam 2 MG TABLET PO PRN ×3 (08:24→21:03)
[2022-10-30] MEDS: HALOPERIDOL 5 MG TABLET PO PRN (08:24)
[2022-10-30] MEDS: PHENYTOIN SODIUM 100 MG ER CAPSULE PO SCH (08:25)
[2022-10-30] MEDS: BACITRACIN 28 GM OINTMENT TP SCH ×2 (08:25→16:59)
[2022-10-30 20:18] VITALS: BP 108/62; PULSE 68; RESP 17; TEMP 97.6; O2SAT 96
[2022-10-30] MEDS: QUEtiapine FUMARATE 300 MG TABLET PO SCH (21:03)
[2022-10-31] MEDS: HALOPERIDOL 5 MG TABLET PO PRN ×2 (03:35→08:14)
[2022-10-31] MEDS: LORazepam 2 MG TABLET PO PRN ×3 (03:36→16:15)
[2022-10-31] MEDS: VENLAFAXINE HCL 150 MG ER CAPSULE PO SCH (08:14)
[2022-10-31] MEDS: DIVALPROEX SODIUM 250 MG DR TABLET PO SCH ×2 (08:14→16:15)
[2022-10-31] MEDS: QUEtiapine FUMARATE 100 MG TABLET PO SCH ×2 (08:14→16:15)
[2022-10-31] MEDS: BusPIRone HCL 15 MG TABLET PO SCH ×2 (08:14→16:15)
[2022-10-31] MEDS: PHENYTOIN SODIUM 100 MG ER CAPSULE PO SCH (08:14)
[2022-10-31 08:40] VITALS: BP 111/64; PULSE 70; RESP 16; TEMP 97.8; O2SAT 98
[2022-10-31] MEDS: BACITRACIN 28 GM OINTMENT TP SCH ×2 (09:00→16:15)
[2022-10-31 20:23] VITALS: BP 106/66; PULSE 104; RESP 18; TEMP 98; O2SAT 97
[2022-10-31] MEDS: QUEtiapine FUMARATE 300 MG TABLET PO SCH (20:45)
[2022-11-01] MEDS: LORazepam 2 MG TABLET PO PRN ×4 (05:20→20:35)
[2022-11-01 08:20] VITALS: BP 100/67; PULSE 97; RESP 20; TEMP 98.7; O2SAT 96
[2022-11-01] MEDS: QUEtiapine FUMARATE 100 MG TABLET PO SCH ×2 (08:46→16:21)
[2022-11-01] MEDS: BusPIRone HCL 15 MG TABLET PO SCH ×2 (08:46→16:21)
[2022-11-01] MEDS: VENLAFAXINE HCL 150 MG ER CAPSULE PO SCH (08:46)
[2022-11-01] MEDS: DIVALPROEX SODIUM 250 MG DR TABLET PO SCH ×2 (08:46→16:21)
[2022-11-01] MEDS: PHENYTOIN SODIUM 100 MG ER CAPSULE PO SCH (08:46)
[2022-11-01] MEDS: HALOPERIDOL 5 MG TABLET PO PRN (11:17)
[2022-11-01 11:36] LABS: GLUCOMETER DEV NAME(LOC) POC.BV; POC SARS-COV2 AG, FIA POSITIVE (NEGATIVE)
[2022-11-01 20:21] VITALS: BP 115/79; PULSE 110; RESP 18; TEMP 97.8; O2SAT 98
[2022-11-01] MEDS: QUEtiapine FUMARATE 300 MG TABLET PO SCH (20:35)
[2022-11-01] MEDS: ZOLPIDEM TARTRATE 10 MG TABLET PO PRN (20:35)
[2022-11-02] VITALS (7 sets, daily range): BP systolic 100–104; BP diastolic 64–65; PULSE 76–100; RESP 17; TEMP 97.7–98.3; O2SAT 98–100
[2022-11-02] MEDS: LORazepam 2 MG TABLET PO PRN ×4 (04:38→20:59)
[2022-11-02] MEDS: PHENYTOIN SODIUM 100 MG ER CAPSULE PO SCH (09:19)
[2022-11-02] MEDS: DIVALPROEX SODIUM 250 MG DR TABLET PO SCH ×2 (09:19→16:39)
[2022-11-02] MEDS: VENLAFAXINE HCL 150 MG ER CAPSULE PO SCH (09:20)
[2022-11-02] MEDS: BusPIRone HCL 15 MG TABLET PO SCH ×2 (09:20→16:39)
[2022-11-02] MEDS: QUEtiapine FUMARATE 100 MG TABLET PO SCH ×2 (09:20→16:39)
[2022-11-02] MEDS: HALOPERIDOL 5 MG TABLET PO PRN (16:39)
[2022-11-02] MEDS: QUEtiapine FUMARATE 300 MG TABLET PO SCH (20:59)
[2022-11-02] MEDS: ZOLPIDEM TARTRATE 10 MG TABLET PO PRN (20:59)
[2022-11-03] VITALS (8 sets, daily range): BP systolic 104–116; BP diastolic 63–75; PULSE 82–103; RESP 17–20; TEMP 97.1–98.6; O2SAT 97–99
[2022-11-03] MEDS: LORazepam 2 MG TABLET PO PRN ×4 (06:18→20:47)
[2022-11-03] MEDS: VENLAFAXINE HCL 150 MG ER CAPSULE PO SCH (09:16)
[2022-11-03] MEDS: QUEtiapine FUMARATE 100 MG TABLET PO SCH ×2 (09:16→16:44)
[2022-11-03] MEDS: BusPIRone HCL 15 MG TABLET PO SCH ×2 (09:16→16:45)
[2022-11-03] MEDS: PHENYTOIN SODIUM 100 MG ER CAPSULE PO SCH (09:16)
[2022-11-03] MEDS: DIVALPROEX SODIUM 250 MG DR TABLET PO SCH ×2 (09:19→16:44)
[2022-11-03] MEDS: HALOPERIDOL 5 MG TABLET PO PRN (16:45)
[2022-11-03] MEDS: QUEtiapine FUMARATE 300 MG TABLET PO SCH (20:46)
[2022-11-03] MEDS: ZOLPIDEM TARTRATE 10 MG TABLET PO PRN (20:47)
[2022-11-04] VITALS (8 sets, daily range): BP systolic 91–118; BP diastolic 68–70; PULSE 70–80; RESP 17–18; TEMP 97.8–98.6; O2SAT 96–97
[2022-11-04] MEDS: LORazepam 2 MG TABLET PO PRN ×4 (05:11→20:48)
[2022-11-04 05:36] LABS: GLUCOMETER DEV NAME(LOC) POC.BV; POC SARS-COV2 AG, FIA NEGATIVE (NEGATIVE)
[2022-11-04] MEDS: BusPIRone HCL 15 MG TABLET PO SCH ×2 (08:57→17:13)
[2022-11-04] MEDS: DIVALPROEX SODIUM 250 MG DR TABLET PO SCH ×2 (08:58→17:13)
[2022-11-04] MEDS: QUEtiapine FUMARATE 100 MG TABLET PO SCH ×2 (08:58→17:13)
[2022-11-04] MEDS: PHENYTOIN SODIUM 100 MG ER CAPSULE PO SCH (08:58)
[2022-11-04] MEDS: VENLAFAXINE HCL 150 MG ER CAPSULE PO SCH (08:58)
[2022-11-04] MEDS: HALOPERIDOL 5 MG TABLET PO PRN (14:50)
[2022-11-04] MEDS: QUEtiapine FUMARATE 300 MG TABLET PO SCH (20:48)
[2022-11-04] MEDS: ZOLPIDEM TARTRATE 10 MG TABLET PO PRN (20:48)
[2022-11-05] VITALS (8 sets, daily range): BP systolic 101–125; BP diastolic 68–79; PULSE 74–99; RESP 16–18; TEMP 97.5–98.4; O2SAT 95–100
[2022-11-05] MEDS: PHENYTOIN SODIUM 100 MG ER CAPSULE PO SCH (08:25)
[2022-11-05] MEDS: DIVALPROEX SODIUM 250 MG DR TABLET PO SCH ×2 (08:25→17:00)
[2022-11-05] MEDS: VENLAFAXINE HCL 150 MG ER CAPSULE PO SCH (08:26)
[2022-11-05] MEDS: BusPIRone HCL 15 MG TABLET PO SCH ×2 (08:26→17:00)
[2022-11-05] MEDS: LORazepam 2 MG TABLET PO PRN ×3 (08:26→19:46)
[2022-11-05] MEDS: QUEtiapine FUMARATE 100 MG TABLET PO SCH ×2 (08:26→17:00)
[2022-11-05] MEDS: MULTIVITAMINS WITH MINERALS, THERAPEUTIC TABLET PO SCH (08:26)
[2022-11-05] MEDS: QUEtiapine FUMARATE 300 MG TABLET PO SCH (20:06)
[2022-11-06] VITALS (8 sets, daily range): BP systolic 131; BP diastolic 68; PULSE 86; RESP 18–19; TEMP 96.1–98; O2SAT 100
[2022-11-06] MEDS: BusPIRone HCL 15 MG TABLET PO SCH ×2 (08:30→16:24)
[2022-11-06] MEDS: QUEtiapine FUMARATE 100 MG TABLET PO SCH ×2 (08:30→16:24)
[2022-11-06] MEDS: MULTIVITAMINS WITH MINERALS, THERAPEUTIC TABLET PO SCH (08:30)
[2022-11-06] MEDS: DIVALPROEX SODIUM 250 MG DR TABLET PO SCH ×2 (08:30→16:23)
[2022-11-06] MEDS: PHENYTOIN SODIUM 100 MG ER CAPSULE PO SCH (08:31)
[2022-11-06] MEDS: LORazepam 2 MG TABLET PO PRN ×2 (09:10→20:43)
[2022-11-06] MEDS: VENLAFAXINE HCL 150 MG ER CAPSULE PO SCH (16:16)
[2022-11-06] MEDS: ZOLPIDEM TARTRATE 10 MG TABLET PO PRN (20:43)
[2022-11-06] MEDS: QUEtiapine FUMARATE 300 MG TABLET PO SCH (20:43)
[2022-11-07] VITALS (8 sets, daily range): BP systolic 104; BP diastolic 62–66; PULSE 77–100; RESP 17–19; TEMP 97.7–98.4; O2SAT 97–100
[2022-11-07] MEDS: LORazepam 2 MG TABLET PO PRN ×4 (03:37→17:47)
[2022-11-07] MEDS: PHENYTOIN SODIUM 100 MG ER CAPSULE PO SCH (08:39)
[2022-11-07] MEDS: DIVALPROEX SODIUM 250 MG DR TABLET PO SCH ×2 (08:39→16:47)
[2022-11-07] MEDS: MULTIVITAMINS WITH MINERALS, THERAPEUTIC TABLET PO SCH (08:39)
[2022-11-07] MEDS: QUEtiapine FUMARATE 100 MG TABLET PO SCH ×2 (08:40→16:47)
[2022-11-07] MEDS: BusPIRone HCL 15 MG TABLET PO SCH ×2 (08:40→16:47)
[2022-11-07] MEDS: VENLAFAXINE HCL 150 MG ER CAPSULE PO SCH (08:40)
[2022-11-07] MEDS: HALOPERIDOL 5 MG TABLET PO PRN (13:29)
[2022-11-07] MEDS: QUEtiapine FUMARATE 300 MG TABLET PO SCH (21:25)
[2022-11-08 02:06] VITALS: TEMP 97.9
[2022-11-08] MEDS: LORazepam 2 MG TABLET PO PRN ×3 (04:41→21:37)
[2022-11-08 06:06] VITALS: TEMP 98
[2022-11-08] MEDS: QUEtiapine FUMARATE 100 MG TABLET PO SCH ×2 (08:15→16:11)
[2022-11-08] MEDS: PHENYTOIN SODIUM 100 MG ER CAPSULE PO SCH (08:15)
[2022-11-08] MEDS: VENLAFAXINE HCL 150 MG ER CAPSULE PO SCH (08:15)
[2022-11-08] MEDS: MULTIVITAMINS WITH MINERALS, THERAPEUTIC TABLET PO SCH (08:15)
[2022-11-08] MEDS: BusPIRone HCL 15 MG TABLET PO SCH ×2 (08:15→16:11)
[2022-11-08] MEDS: DIVALPROEX SODIUM 250 MG DR TABLET PO SCH ×2 (08:16→16:11)
[2022-11-08 08:50] VITALS: BP 100/61; PULSE 81; RESP 17; TEMP 97.8; O2SAT 98
[2022-11-08 13:59] VITALS: TEMP 98.8
[2022-11-08 20:16] VITALS: BP 108/62; PULSE 76; RESP 18; TEMP 97.6; O2SAT 97
[2022-11-08] MEDS: ZOLPIDEM TARTRATE 10 MG TABLET PO PRN (20:40)
[2022-11-08] MEDS: QUEtiapine FUMARATE 300 MG TABLET PO SCH (20:40)
[2022-11-09] MEDS: MULTIVITAMINS WITH MINERALS, THERAPEUTIC TABLET PO SCH (08:19)
[2022-11-09] MEDS: QUEtiapine FUMARATE 100 MG TABLET PO SCH ×2 (08:19→17:35)
[2022-11-09] MEDS: BusPIRone HCL 15 MG TABLET PO SCH ×2 (08:19→17:35)
[2022-11-09] MEDS: VENLAFAXINE HCL 150 MG ER CAPSULE PO SCH (08:19)
[2022-11-09] MEDS: DIVALPROEX SODIUM 250 MG DR TABLET PO SCH ×2 (08:19→17:35)
[2022-11-09] MEDS: PHENYTOIN SODIUM 100 MG ER CAPSULE PO SCH (08:19)
[2022-11-09 08:39] VITALS: BP 100/67; PULSE 72; RESP 17; TEMP 97.3; O2SAT 97
[2022-11-09] MEDS: LORazepam 2 MG TABLET PO PRN ×2 (12:37→17:35)
[2022-11-09] MEDS: HALOPERIDOL 5 MG TABLET PO PRN (17:46)
[2022-11-09 20:13] VITALS: BP 106/62; PULSE 70; RESP 18; TEMP 97.6; O2SAT 97
[2022-11-09] MEDS: QUEtiapine FUMARATE 300 MG TABLET PO SCH (20:17)
[2022-11-09] MEDS: ZOLPIDEM TARTRATE 10 MG TABLET PO PRN (20:33)
[2022-11-10] MEDS: QUEtiapine FUMARATE 100 MG TABLET PO SCH ×2 (08:12→17:08)
[2022-11-10] MEDS: VENLAFAXINE HCL 150 MG ER CAPSULE PO SCH (08:12)
[2022-11-10] MEDS: MULTIVITAMINS WITH MINERALS, THERAPEUTIC TABLET PO SCH (08:12)
[2022-11-10] MEDS: DIVALPROEX SODIUM 250 MG DR TABLET PO SCH ×2 (08:12→17:08)
[2022-11-10] MEDS: BusPIRone HCL 15 MG TABLET PO SCH ×2 (08:12→17:08)
[2022-11-10] MEDS: PHENYTOIN SODIUM 100 MG ER CAPSULE PO SCH (08:12)
[2022-11-10 08:17] VITALS: BP 97/60; PULSE 80; RESP 17; TEMP 97.6; O2SAT 100
[2022-11-10] MEDS: LORazepam 2 MG TABLET PO PRN ×2 (11:27→17:08)
[2022-11-10] MEDS: HALOPERIDOL 5 MG TABLET PO PRN (17:08)
[2022-11-10] MEDS ORDERED: HALOPERIDOL LACTATE 5 MG/ML VIAL IM ONE (20:00)
[2022-11-10] MEDS ORDERED: LORazepam 2 MG/ML VIAL IM ONE (20:00)
[2022-11-10] MEDS ORDERED: DiphenhydrAMINE HCL 50 MG/ML VIAL IM ONE (20:00)
[2022-11-10 20:23] VITALS: BP 114/68; PULSE 93; RESP 20; TEMP 97.7; O2SAT 99
[2022-11-10] MEDS: QUEtiapine FUMARATE 300 MG TABLET PO SCH (20:43)
[2022-11-11] MEDS: MULTIVITAMINS WITH MINERALS, THERAPEUTIC TABLET PO SCH (08:18)
[2022-11-11] MEDS: QUEtiapine FUMARATE 100 MG TABLET PO SCH ×2 (08:18→16:34)
[2022-11-11] MEDS: PHENYTOIN SODIUM 100 MG ER CAPSULE PO SCH (08:18)
[2022-11-11] MEDS: VENLAFAXINE HCL 150 MG ER CAPSULE PO SCH (08:18)
[2022-11-11] MEDS: BusPIRone HCL 15 MG TABLET PO SCH ×2 (08:18→16:34)
[2022-11-11] MEDS: DIVALPROEX SODIUM 250 MG DR TABLET PO SCH ×2 (08:18→16:34)
[2022-11-11 08:30] VITALS: BP 107/60; PULSE 74; RESP 17; TEMP 97.4; O2SAT 99
[2022-11-11] MEDS: LORazepam 2 MG TABLET PO PRN ×2 (11:12→16:34)
[2022-11-11] MEDS: HALOPERIDOL 5 MG TABLET PO PRN (11:12)
[2022-11-11] MEDS ORDERED: HALOPERIDOL LACTATE 5 MG/ML VIAL ONE (20:12)
[2022-11-11] MEDS ORDERED: HALOPERIDOL LACTATE 5 MG/ML VIAL IM ONE (20:15)
[2022-11-11 20:41] VITALS: BP 105/54; PULSE 91; RESP 18; TEMP 97.8; O2SAT 95
[2022-11-11] MEDS: QUEtiapine FUMARATE 300 MG TABLET PO SCH (21:00)
[2022-11-12] MEDS: QUEtiapine FUMARATE 100 MG TABLET PO SCH ×2 (08:10→16:58)
[2022-11-12] MEDS: VENLAFAXINE HCL 150 MG ER CAPSULE PO SCH (08:10)
[2022-11-12] MEDS: DIVALPROEX SODIUM 250 MG DR TABLET PO SCH ×2 (08:10→16:58)
[2022-11-12] MEDS: BusPIRone HCL 15 MG TABLET PO SCH ×2 (08:10→16:57)
[2022-11-12] MEDS: PHENYTOIN SODIUM 100 MG ER CAPSULE PO SCH (08:10)
[2022-11-12] MEDS: MULTIVITAMINS WITH MINERALS, THERAPEUTIC TABLET PO SCH (08:10)
[2022-11-12 08:12] VITALS: BP 101/62; PULSE 95; RESP 18; TEMP 98.4; O2SAT 99
[2022-11-12] MEDS: HALOPERIDOL 5 MG TABLET PO PRN ×2 (09:26→16:58)
[2022-11-12] MEDS: LORazepam 2 MG TABLET PO PRN ×2 (09:26→16:58)
[2022-11-12] MEDS ORDERED: HALOPERIDOL LACTATE 5 MG/ML VIAL ONE (09:35)
[2022-11-12] MEDS ORDERED: LORazepam 2 MG/ML VIAL ONE (09:35)
[2022-11-12] MEDS ORDERED: DiphenhydrAMINE HCL 50 MG/ML VIAL ONE (09:35)
[2022-11-12] MEDS ORDERED: HALOPERIDOL LACTATE 5 MG/ML VIAL IM ONE (09:45)
[2022-11-12] MEDS ORDERED: LORazepam 2 MG/ML VIAL IM ONE (09:45)
[2022-11-12] MEDS ORDERED: DiphenhydrAMINE HCL 50 MG/ML VIAL IM ONE (09:45)
[2022-11-12 20:20] VITALS: BP 111/78; PULSE 110; RESP 18; TEMP 97.6; O2SAT 98
[2022-11-12] MEDS: QUEtiapine FUMARATE 300 MG TABLET PO SCH (20:25)
[2022-11-12] MEDS: ZOLPIDEM TARTRATE 10 MG TABLET PO PRN (20:25)
[2022-11-13 08:23] VITALS: BP 104/62; PULSE 89; RESP 17; TEMP 97.6; O2SAT 100
[2022-11-13] MEDS: BusPIRone HCL 15 MG TABLET PO SCH ×2 (08:32→16:53)
[2022-11-13] MEDS: PHENYTOIN SODIUM 100 MG ER CAPSULE PO SCH (08:32)
[2022-11-13] MEDS: VENLAFAXINE HCL 150 MG ER CAPSULE PO SCH (08:33)
[2022-11-13] MEDS: MULTIVITAMINS WITH MINERALS, THERAPEUTIC TABLET PO SCH (08:33)
[2022-11-13] MEDS: QUEtiapine FUMARATE 100 MG TABLET PO SCH ×2 (08:33→16:53)
[2022-11-13] MEDS: DIVALPROEX SODIUM 250 MG DR TABLET PO SCH ×2 (08:33→16:53)
[2022-11-13] MEDS: LORazepam 2 MG TABLET PO PRN ×2 (13:23→20:13)
[2022-11-13] MEDS ORDERED: LORazepam 2 MG/ML VIAL ONE (13:44)
[2022-11-13] MEDS ORDERED: LORazepam 2 MG/ML VIAL IM ONE (13:45)
[2022-11-13] MEDS ORDERED: HALOPERIDOL LACTATE 5 MG/ML VIAL IM ONE (13:45)
[2022-11-13] MEDS ORDERED: DiphenhydrAMINE HCL 50 MG/ML VIAL IM ONE (13:45)
[2022-11-13] MEDS: HALOPERIDOL 5 MG TABLET PO PRN (16:53)
[2022-11-13 17:51] LABS: GLUCOMETER DEV NAME(LOC) POC.BV; POC SARS-COV2 AG, FIA NEGATIVE (NEGATIVE)
[2022-11-13] MEDS: QUEtiapine FUMARATE 300 MG TABLET PO SCH (20:13)
[2022-11-13 20:21] VITALS: BP 108/66; PULSE 86; RESP 18; TEMP 98; O2SAT 98
[2022-11-14] MEDS: LORazepam 2 MG TABLET PO PRN ×3 (08:26→21:02)
[2022-11-14] MEDS: HALOPERIDOL 5 MG TABLET PO PRN (08:26)
[2022-11-14] MEDS: PHENYTOIN SODIUM 100 MG ER CAPSULE PO SCH (08:26)
[2022-11-14] MEDS: BusPIRone HCL 15 MG TABLET PO SCH ×2 (08:26→16:57)
[2022-11-14] MEDS: DIVALPROEX SODIUM 250 MG DR TABLET PO SCH ×2 (08:26→16:57)
[2022-11-14] MEDS: MULTIVITAMINS WITH MINERALS, THERAPEUTIC TABLET PO SCH (08:26)
[2022-11-14] MEDS: VENLAFAXINE HCL 150 MG ER CAPSULE PO SCH (08:26)
[2022-11-14] MEDS: QUEtiapine FUMARATE 100 MG TABLET PO SCH ×2 (08:26→16:57)
[2022-11-14 08:29] VITALS: BP 129/78; PULSE 82; RESP 18; TEMP 97.7; O2SAT 99
[2022-11-14] MEDS ORDERED: HALOPERIDOL LACTATE 5 MG/ML VIAL IM ONE (13:15)
[2022-11-14] MEDS ORDERED: DiphenhydrAMINE HCL 50 MG/ML VIAL IM ONE (13:15)
[2022-11-14] MEDS ORDERED: LORazepam 2 MG/ML VIAL IM ONE (13:15)
[2022-11-14 20:17] VITALS: BP 110/65; PULSE 80; RESP 18; TEMP 97.9; O2SAT 97
[2022-11-14] MEDS: QUEtiapine FUMARATE 300 MG TABLET PO SCH (21:01)
[2022-11-14] MEDS: ZOLPIDEM TARTRATE 10 MG TABLET PO PRN (21:02)
[2022-11-15] MEDS: LORazepam 2 MG TABLET PO PRN ×3 (04:40→16:08)
[2022-11-15] MEDS: DIVALPROEX SODIUM 250 MG DR TABLET PO SCH ×2 (08:43→16:08)
[2022-11-15] MEDS: MULTIVITAMINS WITH MINERALS, THERAPEUTIC TABLET PO SCH (08:43)
[2022-11-15] MEDS: PHENYTOIN SODIUM 100 MG ER CAPSULE PO SCH (08:43)
[2022-11-15] MEDS: BusPIRone HCL 15 MG TABLET PO SCH ×2 (08:43→16:08)
[2022-11-15] MEDS: VENLAFAXINE HCL 150 MG ER CAPSULE PO SCH (08:43)
[2022-11-15] MEDS: QUEtiapine FUMARATE 200 MG TABLET PO SCH ×2 (08:43→16:08)
[2022-11-15 08:50] VITALS: BP 66/45; PULSE 75; RESP 17; TEMP 99; O2SAT 100
[2022-11-15 11:01] LABS: GLUCOMETER DEV NAME(LOC) POC.BV; POC SARS-COV2 AG, FIA NEGATIVE (NEGATIVE)
[2022-11-15] MEDS: HALOPERIDOL 5 MG TABLET PO PRN ×2 (11:30→16:08)
[2022-11-15] MEDS: QUEtiapine FUMARATE 300 MG TABLET PO SCH (20:05)
[2022-11-15 21:42] VITALS: BP 128/62; PULSE 82; RESP 18; TEMP 97.8; O2SAT 96
[2022-11-16] MEDS: ZOLPIDEM TARTRATE 10 MG TABLET PO PRN ×2 (02:58→21:55)
[2022-11-16] MEDS: VENLAFAXINE HCL 150 MG ER CAPSULE PO SCH (08:19)
[2022-11-16] MEDS: QUEtiapine FUMARATE 200 MG TABLET PO SCH ×2 (08:20→17:11)
[2022-11-16] MEDS: PHENYTOIN SODIUM 100 MG ER CAPSULE PO SCH (08:20)
[2022-11-16] MEDS: DIVALPROEX SODIUM 250 MG DR TABLET PO SCH ×2 (08:20→17:11)
[2022-11-16] MEDS: BusPIRone HCL 15 MG TABLET PO SCH ×2 (08:20→17:11)
[2022-11-16] MEDS: MULTIVITAMINS WITH MINERALS, THERAPEUTIC TABLET PO SCH (08:20)
[2022-11-16 08:46] VITALS: BP 106/69; PULSE 64; RESP 17; TEMP 97.5; O2SAT 98
[2022-11-16] MEDS: LORazepam 2 MG TABLET PO PRN ×3 (09:40→17:11)
[2022-11-16] MEDS: HALOPERIDOL 5 MG TABLET PO PRN ×3 (09:40→17:11)
[2022-11-16] MEDS ORDERED: DiphenhydrAMINE HCL 50 MG/ML VIAL ONE (14:17)
[2022-11-16] MEDS ORDERED: HALOPERIDOL LACTATE 5 MG/ML VIAL ONE (14:17)
[2022-11-16] MEDS ORDERED: LORazepam 2 MG/ML VIAL ONE (14:17)
[2022-11-16] MEDS ORDERED: HALOPERIDOL LACTATE 5 MG/ML VIAL IM ONE (14:30)
[2022-11-16] MEDS ORDERED: DiphenhydrAMINE HCL 50 MG/ML VIAL IM ONE (14:30)
[2022-11-16] MEDS ORDERED: LORazepam 2 MG/ML VIAL IM ONE (14:30)
[2022-11-16] MEDS: QUEtiapine FUMARATE 300 MG TABLET PO SCH (20:33)
[2022-11-16 22:15] VITALS: RESP 18; TEMP 98
[2022-11-17] MEDS: MULTIVITAMINS WITH MINERALS, THERAPEUTIC TABLET PO SCH (08:06)
[2022-11-17] MEDS: QUEtiapine FUMARATE 200 MG TABLET PO SCH ×2 (08:06→17:05)
[2022-11-17] MEDS: PHENYTOIN SODIUM 100 MG ER CAPSULE PO SCH (08:06)
[2022-11-17] MEDS: VENLAFAXINE HCL 150 MG ER CAPSULE PO SCH (08:06)
[2022-11-17] MEDS: DIVALPROEX SODIUM 250 MG DR TABLET PO SCH ×2 (08:06→17:05)
[2022-11-17] MEDS: BusPIRone HCL 15 MG TABLET PO SCH ×2 (08:06→17:05)
[2022-11-17 09:38] VITALS: BP 101/61; PULSE 100; RESP 18; TEMP 97.6; O2SAT 100
[2022-11-17] MEDS ORDERED: LORazepam 2 MG/ML VIAL ONE (09:51)
[2022-11-17] MEDS ORDERED: HALOPERIDOL LACTATE 5 MG/ML VIAL ONE (09:52)
[2022-11-17] MEDS ORDERED: DiphenhydrAMINE HCL 50 MG/ML VIAL ONE (09:52)
[2022-11-17] MEDS ORDERED: HALOPERIDOL LACTATE 5 MG/ML VIAL IM ONE (10:15)
[2022-11-17] MEDS ORDERED: DiphenhydrAMINE HCL 50 MG/ML VIAL IM ONE (10:15)
[2022-11-17] MEDS ORDERED: LORazepam 2 MG/ML VIAL IM ONE (10:15)
[2022-11-17] MEDS: HALOPERIDOL 5 MG TABLET PO PRN ×2 (14:36→19:16)
[2022-11-17] MEDS: LORazepam 2 MG TABLET PO PRN ×2 (14:36→19:16)
[2022-11-17] MEDS: QUEtiapine FUMARATE 300 MG TABLET PO SCH (20:17)
[2022-11-17 20:25] VITALS: BP 122/83; PULSE 87; RESP 18; TEMP 97.8; O2SAT 96
[2022-11-18] MEDS: LORazepam 2 MG TABLET PO PRN ×4 (04:11→22:27)
[2022-11-18] MEDS: HALOPERIDOL 5 MG TABLET PO PRN ×3 (04:11→12:45)
[2022-11-18] MEDS: QUEtiapine FUMARATE 200 MG TABLET PO SCH ×2 (08:00→17:39)
[2022-11-18] MEDS: VENLAFAXINE HCL 150 MG ER CAPSULE PO SCH (08:00)
[2022-11-18] MEDS: BusPIRone HCL 15 MG TABLET PO SCH ×2 (08:00→17:40)
[2022-11-18] MEDS: PHENYTOIN SODIUM 100 MG ER CAPSULE PO SCH (08:00)
[2022-11-18] MEDS: DIVALPROEX SODIUM 250 MG DR TABLET PO SCH ×2 (08:00→17:39)
[2022-11-18] MEDS: MULTIVITAMINS WITH MINERALS, THERAPEUTIC TABLET PO SCH (08:00)
[2022-11-18 08:45] VITALS: RESP 18
[2022-11-18 20:25] VITALS: BP 122/75; PULSE 75; RESP 18; TEMP 97.9; O2SAT 99
[2022-11-18] MEDS: QUEtiapine FUMARATE 300 MG TABLET PO SCH (21:17)
[2022-11-19] MEDS: HALOPERIDOL 5 MG TABLET PO PRN ×3 (04:30→16:47)
[2022-11-19] MEDS: LORazepam 2 MG TABLET PO PRN ×3 (04:30→16:47)
[2022-11-19] MEDS: DIVALPROEX SODIUM 250 MG DR TABLET PO SCH ×2 (08:05→16:09)
[2022-11-19] MEDS: MULTIVITAMINS WITH MINERALS, THERAPEUTIC TABLET PO SCH (08:06)
[2022-11-19] MEDS: QUEtiapine FUMARATE 200 MG TABLET PO SCH ×2 (08:06→16:09)
[2022-11-19] MEDS: PHENYTOIN SODIUM 100 MG ER CAPSULE PO SCH (08:06)
[2022-11-19] MEDS: VENLAFAXINE HCL 150 MG ER CAPSULE PO SCH (08:06)
[2022-11-19] MEDS: BusPIRone HCL 15 MG TABLET PO SCH ×2 (08:06→16:09)
[2022-11-19 09:02] VITALS: BP 101/67; PULSE 100; RESP 18; TEMP 97.1; O2SAT 96
[2022-11-19] MEDS: QUEtiapine FUMARATE 300 MG TABLET PO SCH (20:38)
[2022-11-19 20:55] VITALS: BP 99/69; PULSE 100; RESP 18; TEMP 97.9; O2SAT 97
[2022-11-20 08:28] VITALS: BP 90/60; PULSE 89; RESP 17; TEMP 98; O2SAT 100
[2022-11-20] MEDS: PHENYTOIN SODIUM 100 MG ER CAPSULE PO SCH (09:26)
[2022-11-20] MEDS: MULTIVITAMINS WITH MINERALS, THERAPEUTIC TABLET PO SCH (09:27)
[2022-11-20] MEDS: BusPIRone HCL 15 MG TABLET PO SCH ×2 (09:27→16:19)
[2022-11-20] MEDS: DIVALPROEX SODIUM 250 MG DR TABLET PO SCH ×2 (09:27→16:19)
[2022-11-20] MEDS: QUEtiapine FUMARATE 200 MG TABLET PO SCH ×2 (09:27→16:19)
[2022-11-20] MEDS: VENLAFAXINE HCL 150 MG ER CAPSULE PO SCH (09:27)
[2022-11-20] MEDS: LORazepam 2 MG TABLET PO PRN ×2 (09:55→16:19)
[2022-11-20] MEDS: HALOPERIDOL 5 MG TABLET PO PRN ×2 (09:55→16:19)
[2022-11-20] MEDS ORDERED: LORazepam 2 MG/ML VIAL IM ONE (20:15)
[2022-11-20] MEDS ORDERED: HALOPERIDOL LACTATE 5 MG/ML VIAL IM ONE (20:15)
[2022-11-20] MEDS ORDERED: DiphenhydrAMINE HCL 50 MG/ML VIAL IM ONE (20:15)
[2022-11-20] MEDS ORDERED: LORazepam 2 MG/ML VIAL ONE (20:17)
[2022-11-20 20:57] VITALS: BP 108/72; PULSE 97; RESP 18; TEMP 98.2; O2SAT 100
[2022-11-20] MEDS: QUEtiapine FUMARATE 300 MG TABLET PO SCH (21:18)
[2022-11-21] MEDS: LORazepam 2 MG TABLET PO PRN ×2 (05:13→16:02)
[2022-11-21] MEDS: HALOPERIDOL 5 MG TABLET PO PRN (05:13)
[2022-11-21 08:26] VITALS: BP 109/60; PULSE 82; RESP 17; TEMP 97.7; O2SAT 99
[2022-11-21] MEDS: MULTIVITAMINS WITH MINERALS, THERAPEUTIC TABLET PO SCH (08:28)
[2022-11-21] MEDS: PHENYTOIN SODIUM 100 MG ER CAPSULE PO SCH (08:28)
[2022-11-21] MEDS: BusPIRone HCL 15 MG TABLET PO SCH ×2 (08:28→16:02)
[2022-11-21] MEDS: QUEtiapine FUMARATE 200 MG TABLET PO SCH ×2 (08:28→16:02)
[2022-11-21] MEDS: DIVALPROEX SODIUM 250 MG DR TABLET PO SCH ×2 (08:29→16:02)
[2022-11-21] MEDS: VENLAFAXINE HCL 150 MG ER CAPSULE PO SCH (08:29)
[2022-11-21 20:13] VITALS: BP 118/70; PULSE 72; RESP 18; TEMP 97.6; O2SAT 97
[2022-11-21] MEDS: QUEtiapine FUMARATE 300 MG TABLET PO SCH (20:29)
[2022-11-22] MEDS: LORazepam 2 MG TABLET PO PRN ×3 (02:27→17:16)
[2022-11-22] MEDS: MULTIVITAMINS WITH MINERALS, THERAPEUTIC TABLET PO SCH (08:32)
[2022-11-22] MEDS: QUEtiapine FUMARATE 200 MG TABLET PO SCH ×2 (08:32→17:16)
[2022-11-22] MEDS: PHENYTOIN SODIUM 100 MG ER CAPSULE PO SCH (08:33)
[2022-11-22] MEDS: DIVALPROEX SODIUM 250 MG DR TABLET PO SCH ×2 (08:33→17:16)
[2022-11-22] MEDS: BusPIRone HCL 15 MG TABLET PO SCH ×2 (08:33→17:16)
[2022-11-22] MEDS: VENLAFAXINE HCL 150 MG ER CAPSULE PO SCH (08:33)
[2022-11-22 08:39] VITALS: BP 96/65; PULSE 83; RESP 18; TEMP 97.6; O2SAT 98
[2022-11-22] MEDS: HALOPERIDOL 5 MG TABLET PO PRN ×2 (09:32→17:16)
[2022-11-22] MEDS ORDERED: HALOPERIDOL LACTATE 5 MG/ML VIAL IM ONE (20:00)
[2022-11-22] MEDS: QUEtiapine FUMARATE 300 MG TABLET PO SCH (20:24)
[2022-11-22 20:29] VITALS: BP 106/66; PULSE 95; RESP 18; TEMP 97.8; O2SAT 96
[2022-11-23] MEDS: LORazepam 2 MG TABLET PO PRN ×4 (07:54→21:05)
[2022-11-23] MEDS: HALOPERIDOL 5 MG TABLET PO PRN ×3 (07:54→16:57)
[2022-11-23] MEDS: DIVALPROEX SODIUM 250 MG DR TABLET PO SCH ×2 (08:08→16:57)
[2022-11-23] MEDS: PHENYTOIN SODIUM 100 MG ER CAPSULE PO SCH (08:08)
[2022-11-23] MEDS: VENLAFAXINE HCL 150 MG ER CAPSULE PO SCH (08:09)
[2022-11-23] MEDS: QUEtiapine FUMARATE 200 MG TABLET PO SCH ×2 (08:09→16:57)
[2022-11-23] MEDS: MULTIVITAMINS WITH MINERALS, THERAPEUTIC TABLET PO SCH (08:09)
[2022-11-23] MEDS: BusPIRone HCL 15 MG TABLET PO SCH ×2 (08:09→16:57)
[2022-11-23 08:32] VITALS: BP 104/65; PULSE 94; RESP 17; TEMP 98; O2SAT 97
[2022-11-23 20:13] VITALS: BP 106/64; PULSE 92; RESP 18; TEMP 98.2; O2SAT 97
[2022-11-23] MEDS: QUEtiapine FUMARATE 300 MG TABLET PO SCH (21:05)
[2022-11-24 08:30] VITALS: BP 96/60; PULSE 86; RESP 18; TEMP 97.7; O2SAT 97
[2022-11-24] MEDS: BusPIRone HCL 15 MG TABLET PO SCH ×2 (08:43→16:39)
[2022-11-24] MEDS: VENLAFAXINE HCL 150 MG ER CAPSULE PO SCH (08:43)
[2022-11-24] MEDS: PHENYTOIN SODIUM 100 MG ER CAPSULE PO SCH (08:43)
[2022-11-24] MEDS: DIVALPROEX SODIUM 250 MG DR TABLET PO SCH ×2 (08:43→16:39)
[2022-11-24] MEDS: MULTIVITAMINS WITH MINERALS, THERAPEUTIC TABLET PO SCH (08:43)
[2022-11-24] MEDS: QUEtiapine FUMARATE 200 MG TABLET PO SCH ×2 (08:43→16:39)
[2022-11-24] MEDS: LORazepam 2 MG TABLET PO PRN ×2 (09:13→16:03)
[2022-11-24] MEDS: HALOPERIDOL 5 MG TABLET PO PRN ×2 (09:13→16:03)
[2022-11-24 20:21] VITALS: BP 109/66; PULSE 79; RESP 18; TEMP 97.7; O2SAT 97
[2022-11-24] MEDS: QUEtiapine FUMARATE 300 MG TABLET PO SCH (21:00)
[2022-11-25] MEDS: HALOPERIDOL 5 MG TABLET PO PRN ×4 (01:44→16:36)
[2022-11-25] MEDS: LORazepam 2 MG TABLET PO PRN ×4 (01:44→16:36)
[2022-11-25] MEDS: DIVALPROEX SODIUM 250 MG DR TABLET PO SCH ×2 (08:03→16:36)
[2022-11-25] MEDS: PHENYTOIN SODIUM 100 MG ER CAPSULE PO SCH (08:03)
[2022-11-25] MEDS: QUEtiapine FUMARATE 200 MG TABLET PO SCH ×2 (08:04→16:36)
[2022-11-25] MEDS: BusPIRone HCL 15 MG TABLET PO SCH ×2 (08:04→16:36)
[2022-11-25] MEDS: VENLAFAXINE HCL 150 MG ER CAPSULE PO SCH (08:04)
[2022-11-25] MEDS: MULTIVITAMINS WITH MINERALS, THERAPEUTIC TABLET PO SCH (08:04)
[2022-11-25 08:44] VITALS: BP 106/64; PULSE 86; RESP 17; TEMP 97.9; O2SAT 97
[2022-11-25 20:10] VITALS: RESP 20
[2022-11-25] MEDS: QUEtiapine FUMARATE 300 MG TABLET PO SCH (21:32)
[2022-11-26] MEDS: MULTIVITAMINS WITH MINERALS, THERAPEUTIC TABLET PO SCH (08:15)
[2022-11-26] MEDS: QUEtiapine FUMARATE 200 MG TABLET PO SCH ×2 (08:15→16:16)
[2022-11-26] MEDS: DIVALPROEX SODIUM 250 MG DR TABLET PO SCH ×2 (08:16→16:16)
[2022-11-26] MEDS: VENLAFAXINE HCL 150 MG ER CAPSULE PO SCH (08:16)
[2022-11-26] MEDS: PHENYTOIN SODIUM 100 MG ER CAPSULE PO SCH (08:16)
[2022-11-26] MEDS: BusPIRone HCL 15 MG TABLET PO SCH ×2 (08:16→16:16)
[2022-11-26 09:52] VITALS: RESP 18
[2022-11-26] MEDS: LORazepam 2 MG TABLET PO PRN ×3 (11:47→20:27)
[2022-11-26] MEDS: HALOPERIDOL 5 MG TABLET PO PRN ×2 (11:47→16:16)
[2022-11-26 20:14] VITALS: BP 111/81; PULSE 105; RESP 20; TEMP 97.6; O2SAT 100
[2022-11-26] MEDS: QUEtiapine FUMARATE 300 MG TABLET PO SCH (20:25)
[2022-11-27] MEDS: VENLAFAXINE HCL 150 MG ER CAPSULE PO SCH (08:19)
[2022-11-27] MEDS: MULTIVITAMINS WITH MINERALS, THERAPEUTIC TABLET PO SCH (08:19)
[2022-11-27] MEDS: BusPIRone HCL 15 MG TABLET PO SCH ×2 (08:19→16:15)
[2022-11-27] MEDS: QUEtiapine FUMARATE 200 MG TABLET PO SCH ×2 (08:19→16:15)
[2022-11-27] MEDS: HALOPERIDOL 5 MG TABLET PO PRN ×3 (08:19→20:28)
[2022-11-27] MEDS: LORazepam 2 MG TABLET PO PRN ×3 (08:19→23:17)
[2022-11-27] MEDS: DIVALPROEX SODIUM 250 MG DR TABLET PO SCH ×2 (08:19→16:15)
[2022-11-27] MEDS: PHENYTOIN SODIUM 100 MG ER CAPSULE PO SCH (08:19)
[2022-11-27 13:10] VITALS: BP 92/56; PULSE 85; RESP 17; TEMP 97.5; O2SAT 98
[2022-11-27] MEDS ORDERED: LORazepam 2 MG/ML VIAL IM ONE (14:00)
[2022-11-27] MEDS ORDERED: ChlorproMAZINE HCL 50 MG/2 ML AMP IM ONE (14:00)
[2022-11-27] MEDS ORDERED: DiphenhydrAMINE HCL 50 MG/ML VIAL IM ONE (14:00)
[2022-11-27 20:13] VITALS: BP 106/62; PULSE 70; RESP 18; TEMP 97.6; O2SAT 97
[2022-11-27] MEDS: QUEtiapine FUMARATE 300 MG TABLET PO SCH (21:00)
[2022-11-27 23:14] VITALS: BP 112/72; PULSE 80; RESP 18; TEMP 98
[2022-11-28] MEDS: QUEtiapine FUMARATE 200 MG TABLET PO SCH ×2 (08:09→16:11)
[2022-11-28] MEDS: MULTIVITAMINS WITH MINERALS, THERAPEUTIC TABLET PO SCH (08:10)
[2022-11-28] MEDS: VENLAFAXINE HCL 150 MG ER CAPSULE PO SCH (08:10)
[2022-11-28] MEDS: BusPIRone HCL 15 MG TABLET PO SCH ×2 (08:10→16:11)
[2022-11-28] MEDS: DIVALPROEX SODIUM 250 MG DR TABLET PO SCH ×2 (08:10→16:11)
[2022-11-28] MEDS: PHENYTOIN SODIUM 100 MG ER CAPSULE PO SCH (08:10)
[2022-11-28 08:41] VITALS: BP 105/67; PULSE 87; RESP 17; TEMP 98; O2SAT 99
[2022-11-28] MEDS: HALOPERIDOL 5 MG TABLET PO PRN ×2 (12:06→16:11)
[2022-11-28] MEDS: LORazepam 2 MG TABLET PO PRN ×2 (12:06→16:11)
[2022-11-28] MEDS ORDERED: PERPHENAZINE 8 MG TABLET PO SCH (17:00)
[2022-11-28] MEDS: QUEtiapine FUMARATE 300 MG TABLET PO SCH ×2 (20:08→20:37)
[2022-11-28 20:20] VITALS: BP 107/62; PULSE 100; RESP 18; TEMP 97.6; O2SAT 97
[2022-11-29] MEDS: HALOPERIDOL 5 MG TABLET PO PRN ×4 (00:24→20:12)
[2022-11-29] MEDS: LORazepam 2 MG TABLET PO PRN ×3 (00:24→20:12)
[2022-11-29] MEDS: MULTIVITAMINS WITH MINERALS, THERAPEUTIC TABLET PO SCH (08:10)
[2022-11-29] MEDS: BusPIRone HCL 15 MG TABLET PO SCH ×2 (08:10→17:41)
[2022-11-29] MEDS: VENLAFAXINE HCL 150 MG ER CAPSULE PO SCH (08:10)
[2022-11-29] MEDS: QUEtiapine FUMARATE 200 MG TABLET PO SCH ×2 (08:10→17:41)
[2022-11-29] MEDS: PERPHENAZINE 8 MG TABLET PO SCH ×2 (08:10→17:41)
[2022-11-29] MEDS: PHENYTOIN SODIUM 100 MG ER CAPSULE PO SCH (08:10)
[2022-11-29] MEDS: DIVALPROEX SODIUM 250 MG DR TABLET PO SCH ×2 (08:10→17:41)
[2022-11-29 14:34] VITALS: BP 104/72; PULSE 84; RESP 18; TEMP 97.9; O2SAT 99
[2022-11-29] MEDS: QUEtiapine FUMARATE 300 MG TABLET PO SCH ×2 (20:11→20:52)
[2022-11-29 20:25] VITALS: RESP 20; TEMP 97.9
[2022-11-30] MEDS: IBUPROFEN 400 MG TABLET PO PRN ×2 (03:05→18:05)
[2022-11-30 03:06] VITALS: BP 109/72; PULSE 100; RESP 18; TEMP 97.8; O2SAT 98
[2022-11-30] MEDS: LORazepam 2 MG TABLET PO PRN ×3 (07:38→16:59)
[2022-11-30] MEDS: HALOPERIDOL 5 MG TABLET PO PRN ×3 (07:38→17:00)
[2022-11-30] MEDS: DIVALPROEX SODIUM 250 MG DR TABLET PO SCH ×2 (08:20→16:59)
[2022-11-30] MEDS: PHENYTOIN SODIUM 100 MG ER CAPSULE PO SCH (08:20)
[2022-11-30] MEDS: MULTIVITAMINS WITH MINERALS, THERAPEUTIC TABLET PO SCH (08:21)
[2022-11-30] MEDS: PERPHENAZINE 8 MG TABLET PO SCH ×2 (08:21→16:59)
[2022-11-30] MEDS: BusPIRone HCL 15 MG TABLET PO SCH ×2 (08:21→16:59)
[2022-11-30] MEDS: QUEtiapine FUMARATE 200 MG TABLET PO SCH ×2 (08:21→16:59)
[2022-11-30] MEDS: VENLAFAXINE HCL 150 MG ER CAPSULE PO SCH (08:21)
[2022-11-30 08:30] VITALS: RESP 18
[2022-11-30 18:05] VITALS: RESP 18
[2022-11-30 19:03] VITALS: RESP 18
[2022-11-30] MEDS: QUEtiapine FUMARATE 300 MG TABLET PO SCH (21:04)
[2022-12-01 00:02] VITALS: RESP 18
[2022-12-01] MEDS: PHENYTOIN SODIUM 100 MG ER CAPSULE PO SCH (08:14)
[2022-12-01] MEDS: PERPHENAZINE 8 MG TABLET PO SCH ×2 (08:14→17:06)
[2022-12-01] MEDS: DIVALPROEX SODIUM 250 MG DR TABLET PO SCH ×2 (08:14→17:06)
[2022-12-01] MEDS: BusPIRone HCL 15 MG TABLET PO SCH ×2 (08:14→17:06)
[2022-12-01] MEDS: VENLAFAXINE HCL 150 MG ER CAPSULE PO SCH (08:14)
[2022-12-01] MEDS: HALOPERIDOL 5 MG TABLET PO PRN ×3 (08:15→17:35)
[2022-12-01] MEDS: MULTIVITAMINS WITH MINERALS, THERAPEUTIC TABLET PO SCH (08:15)
[2022-12-01] MEDS: QUEtiapine FUMARATE 200 MG TABLET PO SCH ×2 (08:15→17:07)
[2022-12-01] MEDS: LORazepam 2 MG TABLET PO PRN ×4 (08:15→21:36)
[2022-12-01 20:15] VITALS: BP 118/64; PULSE 70; RESP 18; TEMP 97.8; O2SAT 97
[2022-12-01] MEDS: QUEtiapine FUMARATE 300 MG TABLET PO SCH (21:36)
[2022-12-02] MEDS: DIVALPROEX SODIUM 250 MG DR TABLET PO SCH ×2 (08:32→17:03)
[2022-12-02] MEDS: HALOPERIDOL 5 MG TABLET PO PRN ×3 (08:33→17:04)
[2022-12-02] MEDS: VENLAFAXINE HCL 150 MG ER CAPSULE PO SCH (08:33)
[2022-12-02] MEDS: PHENYTOIN SODIUM 100 MG ER CAPSULE PO SCH (08:33)
[2022-12-02] MEDS: PERPHENAZINE 8 MG TABLET PO SCH ×2 (08:33→17:03)
[2022-12-02] MEDS: MULTIVITAMINS WITH MINERALS, THERAPEUTIC TABLET PO SCH (08:33)
[2022-12-02] MEDS: BusPIRone HCL 15 MG TABLET PO SCH ×2 (08:33→17:03)
[2022-12-02] MEDS: LORazepam 2 MG TABLET PO PRN ×4 (08:33→21:08)
[2022-12-02] MEDS: QUEtiapine FUMARATE 200 MG TABLET PO SCH ×2 (08:45→17:03)
[2022-12-02] MEDS: QUEtiapine FUMARATE 300 MG TABLET PO SCH (20:10)
[2022-12-02 20:13] VITALS: BP 120/68; PULSE 72; RESP 18; TEMP 97.6; O2SAT 97
[2022-12-03] MEDS: BusPIRone HCL 15 MG TABLET PO SCH ×2 (08:13→16:00)
[2022-12-03] MEDS: QUEtiapine FUMARATE 200 MG TABLET PO SCH ×2 (08:14→16:00)
[2022-12-03] MEDS: VENLAFAXINE HCL 150 MG ER CAPSULE PO SCH (08:14)
[2022-12-03] MEDS: PERPHENAZINE 8 MG TABLET PO SCH ×2 (08:14→16:00)
[2022-12-03] MEDS: PHENYTOIN SODIUM 100 MG ER CAPSULE PO SCH (08:14)
[2022-12-03] MEDS: MULTIVITAMINS WITH MINERALS, THERAPEUTIC TABLET PO SCH (08:14)
[2022-12-03] MEDS: DIVALPROEX SODIUM 250 MG DR TABLET PO SCH ×2 (08:14→16:00)
[2022-12-03] MEDS: LORazepam 2 MG TABLET PO PRN ×3 (08:15→17:23)
[2022-12-03] MEDS: HALOPERIDOL 5 MG TABLET PO PRN ×2 (08:15→12:33)
[2022-12-03 08:30] VITALS: PULSE 107; RESP 18; TEMP 97.1; O2SAT 96
[2022-12-03 10:12] VITALS: RESP 18
[2022-12-03] MEDS: IBUPROFEN 400 MG TABLET PO PRN (19:07)
[2022-12-03 20:05] VITALS: BP 131/86; PULSE 91; RESP 17; TEMP 97.8; O2SAT 97
[2022-12-03] MEDS: QUEtiapine FUMARATE 300 MG TABLET PO SCH (20:59)
[2022-12-03] MEDS: HALOPERIDOL LACTATE 5 MG/ML VIAL IM PRN (21:56)
[2022-12-04] MEDS: LORazepam 2 MG TABLET PO PRN ×3 (00:29→21:09)
[2022-12-04 08:21] VITALS: RESP 17
[2022-12-04] MEDS: DIVALPROEX SODIUM 250 MG DR TABLET PO SCH ×2 (09:43→17:30)
[2022-12-04] MEDS: BusPIRone HCL 15 MG TABLET PO SCH ×2 (09:43→17:28)
[2022-12-04] MEDS: QUEtiapine FUMARATE 200 MG TABLET PO SCH ×2 (09:43→17:29)
[2022-12-04] MEDS: PHENYTOIN SODIUM 100 MG ER CAPSULE PO SCH (09:43)
[2022-12-04] MEDS: MULTIVITAMINS WITH MINERALS, THERAPEUTIC TABLET PO SCH (09:43)
[2022-12-04] MEDS: VENLAFAXINE HCL 150 MG ER CAPSULE PO SCH (09:44)
[2022-12-04] MEDS: PERPHENAZINE 8 MG TABLET PO SCH ×2 (09:44→17:29)
[2022-12-04] MEDS: HALOPERIDOL 5 MG TABLET PO PRN ×2 (15:30→21:12)
[2022-12-04] MEDS: QUEtiapine FUMARATE 300 MG TABLET PO SCH (20:39)
[2022-12-04 21:05] VITALS: BP 102/72; PULSE 76; RESP 18; TEMP 98; O2SAT 97
[2022-12-04] MEDS: ZOLPIDEM TARTRATE 10 MG TABLET PO PRN (22:27)
[2022-12-05 08:16] VITALS: BP 104/60; PULSE 90; RESP 18; TEMP 98; O2SAT 97
[2022-12-05] MEDS: HALOPERIDOL 5 MG TABLET PO PRN ×3 (08:25→18:20)
[2022-12-05] MEDS: PERPHENAZINE 8 MG TABLET PO SCH ×2 (08:25→16:52)
[2022-12-05] MEDS: QUEtiapine FUMARATE 200 MG TABLET PO SCH ×2 (08:25→16:52)
[2022-12-05] MEDS: VENLAFAXINE HCL 150 MG ER CAPSULE PO SCH (08:25)
[2022-12-05] MEDS: DIVALPROEX SODIUM 250 MG DR TABLET PO SCH ×2 (08:25→16:52)
[2022-12-05] MEDS: LORazepam 2 MG TABLET PO PRN ×3 (08:25→18:21)
[2022-12-05] MEDS: MULTIVITAMINS WITH MINERALS, THERAPEUTIC TABLET PO SCH (08:25)
[2022-12-05] MEDS: BusPIRone HCL 15 MG TABLET PO SCH ×2 (08:25→16:52)
[2022-12-05] MEDS: PHENYTOIN SODIUM 100 MG ER CAPSULE PO SCH (08:26)
[2022-12-05 20:13] VITALS: BP 108/60; PULSE 70; RESP 18; TEMP 97.8; O2SAT 96
[2022-12-05] MEDS: QUEtiapine FUMARATE 300 MG TABLET PO SCH (20:31)
[2022-12-05] MEDS: HALOPERIDOL LACTATE 5 MG/ML VIAL IM PRN (20:32)
[2022-12-06] MEDS: LORazepam 2 MG TABLET PO PRN ×4 (01:19→23:34)
[2022-12-06] MEDS: HALOPERIDOL 5 MG TABLET PO PRN ×2 (07:37→13:13)
[2022-12-06] MEDS: DIVALPROEX SODIUM 250 MG DR TABLET PO SCH ×2 (08:07→16:40)
[2022-12-06] MEDS: QUEtiapine FUMARATE 200 MG TABLET PO SCH ×2 (08:08→16:39)
[2022-12-06] MEDS: VENLAFAXINE HCL 150 MG ER CAPSULE PO SCH (08:08)
[2022-12-06] MEDS: PHENYTOIN SODIUM 100 MG ER CAPSULE PO SCH (08:08)
[2022-12-06] MEDS: PERPHENAZINE 8 MG TABLET PO SCH ×2 (08:08→16:40)
[2022-12-06] MEDS: BusPIRone HCL 15 MG TABLET PO SCH ×2 (08:08→16:40)
[2022-12-06] MEDS: MULTIVITAMINS WITH MINERALS, THERAPEUTIC TABLET PO SCH (08:08)
[2022-12-06 08:24] VITALS: RESP 18
[2022-12-06 20:16] VITALS: BP 110/79; PULSE 92; RESP 18; TEMP 97.6; O2SAT 99
[2022-12-06] MEDS: QUEtiapine FUMARATE 300 MG TABLET PO SCH (21:00)
[2022-12-07 08:50] VITALS: BP 117/69; PULSE 91; RESP 18; TEMP 98; O2SAT 100
[2022-12-07] MEDS: QUEtiapine FUMARATE 200 MG TABLET PO SCH ×2 (08:50→17:03)
[2022-12-07] MEDS: MULTIVITAMINS WITH MINERALS, THERAPEUTIC TABLET PO SCH (08:50)
[2022-12-07] MEDS: PHENYTOIN SODIUM 100 MG ER CAPSULE PO SCH (08:50)
[2022-12-07] MEDS: LORazepam 2 MG TABLET PO PRN ×3 (08:50→17:04)
[2022-12-07] MEDS: HALOPERIDOL 5 MG TABLET PO PRN (08:50)
[2022-12-07] MEDS: BusPIRone HCL 15 MG TABLET PO SCH ×2 (08:50→17:03)
[2022-12-07] MEDS: DIVALPROEX SODIUM 250 MG DR TABLET PO SCH ×2 (08:50→17:03)
[2022-12-07] MEDS: VENLAFAXINE HCL 150 MG ER CAPSULE PO SCH (08:50)
[2022-12-07] MEDS: PERPHENAZINE 8 MG TABLET PO SCH ×2 (08:50→17:03)
[2022-12-07] MEDS: QUEtiapine FUMARATE 300 MG TABLET PO SCH (20:05)
[2022-12-07] MEDS: HALOPERIDOL LACTATE 5 MG/ML VIAL IM PRN (20:06)
[2022-12-07 20:16] VITALS: BP 109/62; PULSE 100; RESP 18; TEMP 97.6; O2SAT 96
[2022-12-07] MEDS: ZOLPIDEM TARTRATE 10 MG TABLET PO PRN (22:32)
[2022-12-08 08:39] VITALS: BP 100/65; PULSE 78; RESP 17; TEMP 98; O2SAT 100
[2022-12-08] MEDS: VENLAFAXINE HCL 150 MG ER CAPSULE PO SCH (09:13)
[2022-12-08] MEDS: PERPHENAZINE 8 MG TABLET PO SCH ×2 (09:14→17:04)
[2022-12-08] MEDS: DIVALPROEX SODIUM 250 MG DR TABLET PO SCH ×2 (09:15→17:04)
[2022-12-08] MEDS: QUEtiapine FUMARATE 200 MG TABLET PO SCH ×2 (09:15→17:04)
[2022-12-08] MEDS: BusPIRone HCL 15 MG TABLET PO SCH ×2 (09:15→17:04)
[2022-12-08] MEDS: PHENYTOIN SODIUM 100 MG ER CAPSULE PO SCH (09:15)
[2022-12-08] MEDS: MULTIVITAMINS WITH MINERALS, THERAPEUTIC TABLET PO SCH (09:15)
[2022-12-08] MEDS: LORazepam 2 MG TABLET PO PRN ×2 (10:02→18:41)
[2022-12-08] MEDS: HALOPERIDOL 5 MG TABLET PO PRN ×2 (10:02→18:40)
[2022-12-08] MEDS: QUEtiapine FUMARATE 300 MG TABLET PO SCH (20:59)
[2022-12-08 21:38] VITALS: BP 117/75; PULSE 112; RESP 16; TEMP 97.8; O2SAT 98
[2022-12-09] MEDS: DIVALPROEX SODIUM 250 MG DR TABLET PO SCH ×2 (08:27→17:25)
[2022-12-09] MEDS: HALOPERIDOL 5 MG TABLET PO PRN ×2 (08:27→14:51)
[2022-12-09] MEDS: BusPIRone HCL 15 MG TABLET PO SCH ×2 (08:28→17:25)
[2022-12-09] MEDS: VENLAFAXINE HCL 150 MG ER CAPSULE PO SCH (08:28)
[2022-12-09] MEDS: PERPHENAZINE 8 MG TABLET PO SCH ×2 (08:28→17:25)
[2022-12-09] MEDS: MULTIVITAMINS WITH MINERALS, THERAPEUTIC TABLET PO SCH (08:28)
[2022-12-09] MEDS: PHENYTOIN SODIUM 100 MG ER CAPSULE PO SCH (08:28)
[2022-12-09] MEDS: QUEtiapine FUMARATE 200 MG TABLET PO SCH ×2 (08:28→17:29)
[2022-12-09] MEDS: LORazepam 2 MG TABLET PO PRN ×2 (08:28→14:51)
[2022-12-09 08:32] VITALS: BP 106/60; PULSE 87; RESP 17; TEMP 97.7; O2SAT 94
[2022-12-09 20:01] VITALS: BP 126/73; PULSE 87; RESP 18; TEMP 97.6; O2SAT 97
[2022-12-09] MEDS: QUEtiapine FUMARATE 300 MG TABLET PO SCH (20:30)
[2022-12-10] MEDS: LORazepam 2 MG TABLET PO PRN ×3 (07:38→17:20)
[2022-12-10] MEDS: HALOPERIDOL 5 MG TABLET PO PRN ×2 (07:38→12:12)
[2022-12-10] MEDS: MULTIVITAMINS WITH MINERALS, THERAPEUTIC TABLET PO SCH (08:06)
[2022-12-10] MEDS: QUEtiapine FUMARATE 200 MG TABLET PO SCH ×2 (08:06→17:20)
[2022-12-10] MEDS: PHENYTOIN SODIUM 100 MG ER CAPSULE PO SCH (08:06)
[2022-12-10] MEDS: VENLAFAXINE HCL 150 MG ER CAPSULE PO SCH (08:06)
[2022-12-10] MEDS: BusPIRone HCL 15 MG TABLET PO SCH ×2 (08:06→17:20)
[2022-12-10] MEDS: PERPHENAZINE 8 MG TABLET PO SCH ×2 (08:06→17:19)
[2022-12-10] MEDS: DIVALPROEX SODIUM 250 MG DR TABLET PO SCH ×2 (08:06→17:20)
[2022-12-10 08:07] VITALS: BP 113/71; PULSE 95; RESP 18; TEMP 97.3; O2SAT 100
[2022-12-10] MEDS: QUEtiapine FUMARATE 300 MG TABLET PO SCH (20:38)
[2022-12-10] MEDS: HALOPERIDOL LACTATE 5 MG/ML VIAL IM PRN (20:39)
[2022-12-11 00:39] VITALS: BP 110/70; PULSE 88; RESP 18; TEMP 97.8; O2SAT 98
[2022-12-11] MEDS: ZOLPIDEM TARTRATE 10 MG TABLET PO PRN ×2 (00:39→20:19)
[2022-12-11] MEDS: HALOPERIDOL 5 MG TABLET PO PRN (07:02)
[2022-12-11] MEDS: LORazepam 2 MG TABLET PO PRN ×2 (07:03→16:46)
[2022-12-11 07:04] VITALS: BP 126/76; PULSE 90; RESP 18
[2022-12-11] MEDS: BusPIRone HCL 15 MG TABLET PO SCH ×2 (08:08→16:46)
[2022-12-11] MEDS: DIVALPROEX SODIUM 250 MG DR TABLET PO SCH ×2 (08:08→16:46)
[2022-12-11] MEDS: VENLAFAXINE HCL 150 MG ER CAPSULE PO SCH (08:08)
[2022-12-11] MEDS: PERPHENAZINE 8 MG TABLET PO SCH ×2 (08:08→16:46)
[2022-12-11] MEDS: QUEtiapine FUMARATE 200 MG TABLET PO SCH ×2 (08:08→16:46)
[2022-12-11] MEDS: PHENYTOIN SODIUM 100 MG ER CAPSULE PO SCH (08:08)
[2022-12-11] MEDS: MULTIVITAMINS WITH MINERALS, THERAPEUTIC TABLET PO SCH (08:08)
[2022-12-11 10:52] VITALS: RESP 18; TEMP 97.9
[2022-12-11] MEDS: QUEtiapine FUMARATE 300 MG TABLET PO SCH (20:19)
[2022-12-11 20:57] VITALS: RESP 18
[2022-12-12] MEDS: QUEtiapine FUMARATE 200 MG TABLET PO SCH ×2 (08:16→16:52)
[2022-12-12] MEDS: VENLAFAXINE HCL 150 MG ER CAPSULE PO SCH (08:16)
[2022-12-12] MEDS: MULTIVITAMINS WITH MINERALS, THERAPEUTIC TABLET PO SCH (08:16)
[2022-12-12] MEDS: HALOPERIDOL 5 MG TABLET PO PRN ×4 (08:16→20:54)
[2022-12-12] MEDS: LORazepam 2 MG TABLET PO PRN ×4 (08:16→20:54)
[2022-12-12] MEDS: DIVALPROEX SODIUM 250 MG DR TABLET PO SCH ×2 (08:16→16:52)
[2022-12-12] MEDS: PHENYTOIN SODIUM 100 MG ER CAPSULE PO SCH (08:17)
[2022-12-12] MEDS: PERPHENAZINE 8 MG TABLET PO SCH ×2 (08:17→16:52)
[2022-12-12] MEDS: BusPIRone HCL 15 MG TABLET PO SCH ×2 (08:17→16:52)
[2022-12-12 08:56] VITALS: BP 103/66; PULSE 90; RESP 17; TEMP 97.9; O2SAT 97
[2022-12-12] MEDS: ZOLPIDEM TARTRATE 10 MG TABLET PO PRN (20:11)
[2022-12-12] MEDS: QUEtiapine FUMARATE 300 MG TABLET PO SCH (20:11)
[2022-12-12 21:36] VITALS: BP 109/63; PULSE 85; RESP 18; TEMP 97.9; O2SAT 97
[2022-12-13] MEDS: MULTIVITAMINS WITH MINERALS, THERAPEUTIC TABLET PO SCH (08:31)
[2022-12-13] MEDS: BusPIRone HCL 15 MG TABLET PO SCH ×2 (08:31→16:24)
[2022-12-13] MEDS: VENLAFAXINE HCL 150 MG ER CAPSULE PO SCH (08:31)
[2022-12-13] MEDS: PHENYTOIN SODIUM 100 MG ER CAPSULE PO SCH (08:31)
[2022-12-13] MEDS: QUEtiapine FUMARATE 200 MG TABLET PO SCH ×2 (08:32→16:24)
[2022-12-13] MEDS: DIVALPROEX SODIUM 250 MG DR TABLET PO SCH ×2 (08:32→16:24)
[2022-12-13] MEDS: PERPHENAZINE 8 MG TABLET PO SCH ×2 (08:32→16:24)
[2022-12-13] MEDS: HALOPERIDOL 5 MG TABLET PO PRN (13:20)
[2022-12-13] MEDS: LORazepam 2 MG TABLET PO PRN (13:20)
[2022-12-13] MEDS: QUEtiapine FUMARATE 300 MG TABLET PO SCH (20:00)
[2022-12-13 20:42] VITALS: BP 107/69; PULSE 97; RESP 16; TEMP 97.3; O2SAT 99
[2022-12-14] MEDS: LORazepam 2 MG TABLET PO PRN ×2 (05:24→14:09)
[2022-12-14] MEDS: HALOPERIDOL 5 MG TABLET PO PRN (08:21)
[2022-12-14] MEDS: DIVALPROEX SODIUM 250 MG DR TABLET PO SCH ×2 (08:21→17:14)
[2022-12-14] MEDS: PERPHENAZINE 8 MG TABLET PO SCH ×2 (08:21→17:15)
[2022-12-14] MEDS: BusPIRone HCL 15 MG TABLET PO SCH ×2 (08:21→17:14)
[2022-12-14] MEDS: MULTIVITAMINS WITH MINERALS, THERAPEUTIC TABLET PO SCH (08:21)
[2022-12-14] MEDS: PHENYTOIN SODIUM 100 MG ER CAPSULE PO SCH (08:21)
[2022-12-14] MEDS: QUEtiapine FUMARATE 200 MG TABLET PO SCH ×2 (08:21→17:15)
[2022-12-14] MEDS: VENLAFAXINE HCL 150 MG ER CAPSULE PO SCH (08:21)
[2022-12-14 08:28] VITALS: BP 100/65; PULSE 80; RESP 17; TEMP 97.4; O2SAT 94
[2022-12-14] MEDS ORDERED: LORazepam 2 MG/ML VIAL ONE (09:34)
[2022-12-14] MEDS ORDERED: ChlorproMAZINE HCL 50 MG/2 ML AMP ONE (09:34)
[2022-12-14] MEDS ORDERED: DiphenhydrAMINE HCL 50 MG/ML VIAL ONE (09:34)
[2022-12-14] MEDS ORDERED: DiphenhydrAMINE HCL 50 MG/ML VIAL IM ONE (09:45)
[2022-12-14] MEDS ORDERED: ChlorproMAZINE HCL 50 MG/2 ML AMP IM ONE (09:45)
[2022-12-14] MEDS ORDERED: LORazepam 2 MG/ML VIAL IM ONE (09:45)
[2022-12-14 20:15] VITALS: BP 115/68; PULSE 58; RESP 18; TEMP 97.8; O2SAT 98
[2022-12-14] MEDS: QUEtiapine FUMARATE 300 MG TABLET PO SCH (20:33)
[2022-12-14] MEDS: HALOPERIDOL LACTATE 5 MG/ML VIAL IM PRN (20:33)
[2022-12-14] MEDS: ZOLPIDEM TARTRATE 10 MG TABLET PO PRN (22:13)
[2022-12-15] MEDS: MULTIVITAMINS WITH MINERALS, THERAPEUTIC TABLET PO SCH (08:12)
[2022-12-15] MEDS: BusPIRone HCL 15 MG TABLET PO SCH ×2 (08:12→17:00)
[2022-12-15] MEDS: PHENYTOIN SODIUM 100 MG ER CAPSULE PO SCH (08:12)
[2022-12-15] MEDS: PERPHENAZINE 8 MG TABLET PO SCH ×2 (08:13→17:00)
[2022-12-15] MEDS: DIVALPROEX SODIUM 250 MG DR TABLET PO SCH ×2 (08:13→17:00)
[2022-12-15] MEDS: QUEtiapine FUMARATE 200 MG TABLET PO SCH ×2 (08:13→17:00)
[2022-12-15] MEDS: VENLAFAXINE HCL 150 MG ER CAPSULE PO SCH (08:13)
[2022-12-15] MEDS: LORazepam 2 MG TABLET PO PRN ×3 (08:15→20:17)
[2022-12-15] MEDS: HALOPERIDOL 5 MG TABLET PO PRN ×2 (08:15→15:35)
[2022-12-15 08:19] VITALS: BP 100/67; PULSE 83; RESP 17; TEMP 97.7; O2SAT 100
[2022-12-15] MEDS: QUEtiapine FUMARATE 300 MG TABLET PO SCH (20:17)
[2022-12-15 20:21] VITALS: BP 118/64; PULSE 100; RESP 18; TEMP 97.9; O2SAT 98
[2022-12-16] MEDS: HALOPERIDOL 5 MG TABLET PO PRN ×2 (07:43→14:09)
[2022-12-16] MEDS: LORazepam 2 MG TABLET PO PRN ×2 (07:43→14:09)
[2022-12-16] MEDS: QUEtiapine FUMARATE 200 MG TABLET PO SCH ×2 (08:05→17:10)
[2022-12-16] MEDS: PHENYTOIN SODIUM 100 MG ER CAPSULE PO SCH (08:05)
[2022-12-16] MEDS: MULTIVITAMINS WITH MINERALS, THERAPEUTIC TABLET PO SCH (08:05)
[2022-12-16] MEDS: PERPHENAZINE 8 MG TABLET PO SCH ×2 (08:05→17:10)
[2022-12-16] MEDS: VENLAFAXINE HCL 150 MG ER CAPSULE PO SCH (08:05)
[2022-12-16] MEDS: BusPIRone HCL 15 MG TABLET PO SCH ×2 (08:05→17:10)
[2022-12-16] MEDS: DIVALPROEX SODIUM 250 MG DR TABLET PO SCH ×2 (08:06→17:10)
[2022-12-16 08:21] VITALS: BP 104/60; PULSE 79; RESP 17; TEMP 97.6; O2SAT 94
[2022-12-16] MEDS ORDERED: TUBERCULIN, PURIFIED PROTEIN DERIVATIVE 5 TU/0.1 ML SYRINGE ID ONE (14:30)
[2022-12-16] MEDS ORDERED: LORazepam 2 MG/ML VIAL ONE (19:58)
[2022-12-16] MEDS ORDERED: ChlorproMAZINE HCL 50 MG/2 ML AMP ONE (19:59)
[2022-12-16] MEDS ORDERED: DiphenhydrAMINE HCL 50 MG/ML VIAL ONE (19:59)
[2022-12-16] MEDS ORDERED: DiphenhydrAMINE HCL 50 MG/ML VIAL IM ONE (20:00)
[2022-12-16] MEDS ORDERED: ChlorproMAZINE HCL 50 MG/2 ML AMP IM ONE (20:00)
[2022-12-16] MEDS ORDERED: LORazepam 2 MG/ML VIAL IM ONE (20:00)
[2022-12-16 20:18] VITALS: BP 108/64; PULSE 80; RESP 18; TEMP 97.6; O2SAT 97
[2022-12-16] MEDS: QUEtiapine FUMARATE 300 MG TABLET PO SCH ×2 (20:21→21:31)
[2022-12-17] MEDS: LORazepam 2 MG TABLET PO PRN ×4 (00:54→16:11)
[2022-12-17] MEDS: HALOPERIDOL 5 MG TABLET PO PRN ×4 (00:54→16:11)
[2022-12-17] MEDS: VENLAFAXINE HCL 150 MG ER CAPSULE PO SCH (08:04)
[2022-12-17] MEDS: PHENYTOIN SODIUM 100 MG ER CAPSULE PO SCH (08:04)
[2022-12-17] MEDS: PERPHENAZINE 8 MG TABLET PO SCH ×2 (08:05→16:10)
[2022-12-17] MEDS: BusPIRone HCL 15 MG TABLET PO SCH ×2 (08:05→16:10)
[2022-12-17] MEDS: DIVALPROEX SODIUM 250 MG DR TABLET PO SCH ×2 (08:05→16:11)
[2022-12-17] MEDS: QUEtiapine FUMARATE 200 MG TABLET PO SCH ×2 (08:05→16:10)
[2022-12-17] MEDS: MULTIVITAMINS WITH MINERALS, THERAPEUTIC TABLET PO SCH (08:05)
[2022-12-17 08:53] VITALS: BP 101/63; PULSE 82; RESP 17; TEMP 97.5; O2SAT 100
[2022-12-17] MEDS: QUEtiapine FUMARATE 300 MG TABLET PO SCH (20:52)
[2022-12-17 20:57] VITALS: BP 99/61; PULSE 87; RESP 17; TEMP 97.4; O2SAT 100
[2022-12-18] MEDS: HALOPERIDOL 5 MG TABLET PO PRN ×3 (00:32→23:52)
[2022-12-18] MEDS: LORazepam 2 MG TABLET PO PRN ×3 (00:32→23:52)
[2022-12-18] MEDS: VENLAFAXINE HCL 150 MG ER CAPSULE PO SCH (10:49)
[2022-12-18] MEDS: MULTIVITAMINS WITH MINERALS, THERAPEUTIC TABLET PO SCH (10:49)
[2022-12-18] MEDS: DIVALPROEX SODIUM 250 MG DR TABLET PO SCH ×2 (10:49→15:26)
[2022-12-18] MEDS: BusPIRone HCL 15 MG TABLET PO SCH ×2 (10:49→15:26)
[2022-12-18] MEDS: PHENYTOIN SODIUM 100 MG ER CAPSULE PO SCH (10:49)
[2022-12-18] MEDS: PERPHENAZINE 8 MG TABLET PO SCH ×2 (10:50→15:26)
[2022-12-18] MEDS: QUEtiapine FUMARATE 200 MG TABLET PO SCH ×2 (10:50→15:26)
[2022-12-18 14:35] VITALS: BP 98/62; PULSE 82; RESP 18; TEMP 98.2; O2SAT 100
[2022-12-18 20:25] VITALS: BP 112/64; PULSE 64; RESP 18; TEMP 97.6; O2SAT 97
[2022-12-18] MEDS: QUEtiapine FUMARATE 300 MG TABLET PO SCH (21:02)
[2022-12-19 08:41] VITALS: BP 106/66; PULSE 79; RESP 17; TEMP 97.7; O2SAT 98
[2022-12-19] MEDS: BusPIRone HCL 15 MG TABLET PO SCH ×2 (08:41→17:01)
[2022-12-19] MEDS: QUEtiapine FUMARATE 200 MG TABLET PO SCH ×2 (08:41→17:01)
[2022-12-19] MEDS: PHENYTOIN SODIUM 100 MG ER CAPSULE PO SCH (08:41)
[2022-12-19] MEDS: VENLAFAXINE HCL 150 MG ER CAPSULE PO SCH (08:42)
[2022-12-19] MEDS: MULTIVITAMINS WITH MINERALS, THERAPEUTIC TABLET PO SCH (08:42)
[2022-12-19] MEDS: PERPHENAZINE 8 MG TABLET PO SCH ×2 (08:42→17:02)
[2022-12-19] MEDS: DIVALPROEX SODIUM 250 MG DR TABLET PO SCH ×2 (08:42→17:01)
[2022-12-19] MEDS: HALOPERIDOL 5 MG TABLET PO PRN (08:43)
[2022-12-19] MEDS: LORazepam 2 MG TABLET PO PRN ×2 (08:43→17:02)
[2022-12-19] MEDS ORDERED: DiphenhydrAMINE HCL 50 MG/ML VIAL ONE (19:26)
[2022-12-19] MEDS ORDERED: ChlorproMAZINE HCL 50 MG/2 ML AMP ONE (19:27)
[2022-12-19] MEDS ORDERED: LORazepam 2 MG/ML VIAL ONE (19:28)
[2022-12-19] MEDS ORDERED: LORazepam 2 MG/ML VIAL IM ONE (19:30)
[2022-12-19] MEDS ORDERED: DiphenhydrAMINE HCL 50 MG/ML VIAL IM ONE (19:30)
[2022-12-19] MEDS ORDERED: ChlorproMAZINE HCL 50 MG/2 ML AMP IM ONE (19:30)
[2022-12-19 20:14] VITALS: BP 110/73; PULSE 96; RESP 20; TEMP 97.6; O2SAT 97
[2022-12-19] MEDS: QUEtiapine FUMARATE 300 MG TABLET PO SCH (20:17)
[2022-12-20] MEDS: LORazepam 2 MG TABLET PO PRN ×4 (07:43→20:48)
[2022-12-20] MEDS: HALOPERIDOL 5 MG TABLET PO PRN ×4 (07:43→20:48)
[2022-12-20] MEDS: DIVALPROEX SODIUM 250 MG DR TABLET PO SCH ×2 (08:14→16:11)
[2022-12-20] MEDS: PERPHENAZINE 8 MG TABLET PO SCH ×2 (08:14→16:11)
[2022-12-20] MEDS: BusPIRone HCL 15 MG TABLET PO SCH ×2 (08:15→16:11)
[2022-12-20] MEDS: QUEtiapine FUMARATE 200 MG TABLET PO SCH ×2 (08:15→16:11)
[2022-12-20] MEDS: PHENYTOIN SODIUM 100 MG ER CAPSULE PO SCH (08:15)
[2022-12-20] MEDS: MULTIVITAMINS WITH MINERALS, THERAPEUTIC TABLET PO SCH (08:15)
[2022-12-20] MEDS: VENLAFAXINE HCL 150 MG ER CAPSULE PO SCH (08:15)
[2022-12-20 08:35] VITALS: BP 100/63; PULSE 89; RESP 17; TEMP 97.6
[2022-12-20 20:15] VITALS: BP 110/64; PULSE 78; RESP 18; TEMP 98; O2SAT 97
[2022-12-20] MEDS: QUEtiapine FUMARATE 300 MG TABLET PO SCH (20:30)
[2022-12-21 08:17] VITALS: BP 101/62; PULSE 86; RESP 17; TEMP 97.9; O2SAT 98
[2022-12-21 09:00] VITALS: BP 109/67; PULSE 83; RESP 18; TEMP 97.8; O2SAT 98
[2022-12-21] MEDS: BusPIRone HCL 15 MG TABLET PO SCH ×2 (09:06→16:40)
[2022-12-21] MEDS: DIVALPROEX SODIUM 250 MG DR TABLET PO SCH ×2 (09:07→16:40)
[2022-12-21] MEDS: VENLAFAXINE HCL 150 MG ER CAPSULE PO SCH (09:07)
[2022-12-21] MEDS: QUEtiapine FUMARATE 200 MG TABLET PO SCH ×2 (09:08→16:40)
[2022-12-21] MEDS: MULTIVITAMINS WITH MINERALS, THERAPEUTIC TABLET PO SCH (09:08)
[2022-12-21] MEDS: PHENYTOIN SODIUM 100 MG ER CAPSULE PO SCH (09:14)
[2022-12-21] MEDS: PERPHENAZINE 8 MG TABLET PO SCH ×2 (09:14→16:40)
[2022-12-21] MEDS: HALOPERIDOL 5 MG TABLET PO PRN ×2 (12:01→16:40)
[2022-12-21] MEDS: LORazepam 2 MG TABLET PO PRN ×3 (12:02→23:06)
[2022-12-21 20:10] VITALS: BP 109/69; PULSE 101; RESP 18; TEMP 97.8; O2SAT 100
[2022-12-21] MEDS: QUEtiapine FUMARATE 300 MG TABLET PO SCH (20:14)
[2022-12-22] MEDS: MULTIVITAMINS WITH MINERALS, THERAPEUTIC TABLET PO SCH (08:11)
[2022-12-22] MEDS: PHENYTOIN SODIUM 100 MG ER CAPSULE PO SCH (08:11)
[2022-12-22] MEDS: DIVALPROEX SODIUM 250 MG DR TABLET PO SCH ×2 (08:11→17:57)
[2022-12-22] MEDS: PERPHENAZINE 8 MG TABLET PO SCH ×2 (08:11→17:57)
[2022-12-22] MEDS: VENLAFAXINE HCL 150 MG ER CAPSULE PO SCH (08:11)
[2022-12-22] MEDS: QUEtiapine FUMARATE 200 MG TABLET PO SCH ×2 (08:11→17:57)
[2022-12-22] MEDS: BusPIRone HCL 15 MG TABLET PO SCH ×2 (08:11→17:57)
[2022-12-22 08:14] VITALS: BP 103/70; PULSE 81; RESP 18; TEMP 97.1; O2SAT 100
[2022-12-22] MEDS: LORazepam 2 MG TABLET PO PRN ×3 (12:17→22:00)
[2022-12-22] MEDS: HALOPERIDOL 5 MG TABLET PO PRN ×2 (12:17→17:57)
[2022-12-22 20:07] VITALS: BP 110/62; PULSE 102; RESP 20; TEMP 97.8; O2SAT 98
[2022-12-22] MEDS: QUEtiapine FUMARATE 300 MG TABLET PO SCH (21:01)
[2022-12-23 08:26] VITALS: BP 104/61; PULSE 83; RESP 18; TEMP 97.8; O2SAT 99
[2022-12-23 09:06] LABS: APPEARANCE,URINE CLEAR (CLEAR); BILIRUBIN,URINE NEGATIVE (NEGATIVE); COLOR,URINE YELLOW (YELLOW); GLUCOSE, URINE (UA) NEGATIVE (NEGATIVE); KETONES,URINE NEGATIVE (NEGATIVE); LEUKOCYTE ESTERASE ,URINE NEGATIVE (NEGATIVE); NITRATE,URINE NEGATIVE (NEGATIVE); OCCULT BLOOD,URINE NEGATIVE (NEGATIVE); PH,URINE 6.5 (5.0-8.0); PH,URINE DRUG SCREEN 6.5 (5.0-8.0); PROTEIN,URINE NEGATIVE (NEGATIVE); SPECIFIC GRAVITIY, URINE 1.017 (1.003-1.030); UROBILINOGEN,URINE <=1.0 mg/dL (<=1.0)
[2022-12-23] MEDS: BusPIRone HCL 15 MG TABLET PO SCH ×2 (09:08→17:33)
[2022-12-23] MEDS: VENLAFAXINE HCL 150 MG ER CAPSULE PO SCH (09:08)
[2022-12-23] MEDS: PHENYTOIN SODIUM 100 MG ER CAPSULE PO SCH (09:08)
[2022-12-23] MEDS: PERPHENAZINE 8 MG TABLET PO SCH ×2 (09:09→17:34)
[2022-12-23] MEDS: DIVALPROEX SODIUM 250 MG DR TABLET PO SCH ×2 (09:09→17:33)
[2022-12-23] MEDS: LORazepam 2 MG TABLET PO PRN ×3 (09:09→20:15)
[2022-12-23] MEDS: QUEtiapine FUMARATE 200 MG TABLET PO SCH ×2 (09:09→17:33)
[2022-12-23] MEDS: MULTIVITAMINS WITH MINERALS, THERAPEUTIC TABLET PO SCH (09:11)
[2022-12-23 09:12] LABS: ALCOHOL, URINE DRUG SCREEN NEGATIVE (NEGATIVE); AMPHET/METH SCREEN,URINE NEGATIVE (NEGATIVE); BARBITURATE SCREEN, URINE NEGATIVE (NEGATIVE); BENZODIAZEPINES SCREEN,URINE NEGATIVE (NEGATIVE); CANNABINOID SCREEN,URINE NEGATIVE (NEGATIVE); COCAINE SCREEN,URINE NEGATIVE (NEGATIVE); METHADONE SCREEN, URINE NEGATIVE (NEGATIVE); OPIATE SCREEN,URINE NEGATIVE (NEGATIVE); PHENCYCLIDINE SCREEN,URINE NEGATIVE (NEGATIVE)
[2022-12-23] MEDS: HALOPERIDOL 5 MG TABLET PO PRN (16:30)
[2022-12-23] MEDS: QUEtiapine FUMARATE 300 MG TABLET PO SCH (20:14)
[2022-12-23 20:34] VITALS: BP 111/60; PULSE 81; RESP 18; TEMP 97.8
[2022-12-24] MEDS: PERPHENAZINE 8 MG TABLET PO SCH ×2 (08:06→16:40)
[2022-12-24] MEDS: DIVALPROEX SODIUM 250 MG DR TABLET PO SCH ×2 (08:06→16:39)
[2022-12-24] MEDS: MULTIVITAMINS WITH MINERALS, THERAPEUTIC TABLET PO SCH (08:06)
[2022-12-24] MEDS: VENLAFAXINE HCL 150 MG ER CAPSULE PO SCH (08:06)
[2022-12-24] MEDS: BusPIRone HCL 15 MG TABLET PO SCH ×2 (08:06→16:39)
[2022-12-24] MEDS: PHENYTOIN SODIUM 100 MG ER CAPSULE PO SCH (08:06)
[2022-12-24] MEDS: QUEtiapine FUMARATE 200 MG TABLET PO SCH ×2 (08:07→16:39)
[2022-12-24 08:34] VITALS: BP 110/65; PULSE 76; RESP 20; TEMP 96.8
[2022-12-24] MEDS: LORazepam 2 MG TABLET PO PRN ×3 (11:11→21:45)
[2022-12-24] MEDS: HALOPERIDOL 5 MG TABLET PO PRN ×2 (11:11→16:40)
[2022-12-24] MEDS ORDERED: LORazepam 2 MG/ML VIAL ONE (14:35)
[2022-12-24] MEDS ORDERED: LORazepam 2 MG/ML VIAL IM ONE ×2 (14:45→18:15)
[2022-12-24 20:12] VITALS: BP 114/62; PULSE 84; RESP 18; TEMP 97.8; O2SAT 98
[2022-12-24] MEDS: QUEtiapine FUMARATE 300 MG TABLET PO SCH (21:45)
[2022-12-25 07:45] LABS: BASOPHILS % (AUTO) 0.4 % (0.0-2.0); EOSINOPHILS % (AUTO) 2.4 % (1.0-6.0); HEMATOCRIT 39.4 % (41-53); HEMOGLOBIN 13.4 g/dL (13.5-17.5); LYMPHOCYTES # (AUTO) 2.2 K/uL (1.0-4.8); MEAN CORPUSCULAR HEMOGLOBIN 31.6 pg (26.0-34.0); MEAN CORPUSCULAR VOLUME 93 fL (80-100); MONOCYTES # (AUTO) 0.5 K/uL (0.1-1.0); MONOCYTES % (AUTO) 10.5 % (2.0-9.0); NEUTROPHILS # (AUTO) 2.1 K/uL (1.8-7.7); NEUTROPHILS % (AUTO) 42.7 % (40.0-70.0); PLATELET COUNT (AUTO) 249 K/uL (150-450); RED BLOOD CELL COUNT(AUTO) 4.24 MIL/uL (4.50-5.90)
[2022-12-25 08:10] LABS: ALANINE AMINOTRANSFERASE 22 U/L (12-78); ALBUMIN 3.3 g/dL (3.4-5.0); ALKALINE PHOSPHATASE 107 U/L (46-116); ANION GAP 7 mmol/L (8-16); ASPARTATE AMINOTRANSFERASE 17 U/L (15-37); BILIRUBIN,TOTAL 0.3 mg/dL (0.1-1.0); CALCIUM, TOTAL 9.1 mg/dL (8.8-10.5); CARBON DIOXIDE 30 mmol/L (22-29); CHLORIDE 102 mmol/L (98-107); CREATININE 0.73 mg/dL (0.60-1.30); GLOMERULAR FILTR. RATE CALC > 60 mL/min (>60); GLUCOSE,RANDOM 72 mg/dL (70-110); POTASSIUM 3.9 mmol/L (3.5-5.1); SODIUM SERUM 139 mmol/L (136-145); TOTAL PROTEIN, SERUM 6.9 g/dL (6.4-8.2); UREA NITROGEN, BLOOD 15 mg/dL (7-18)
[2022-12-25] MEDS: QUEtiapine FUMARATE 200 MG TABLET PO SCH ×2 (08:21→16:39)
[2022-12-25] MEDS: MULTIVITAMINS WITH MINERALS, THERAPEUTIC TABLET PO SCH (08:21)
[2022-12-25] MEDS: PERPHENAZINE 8 MG TABLET PO SCH ×3 (08:21→16:39)
[2022-12-25] MEDS: VENLAFAXINE HCL 150 MG ER CAPSULE PO SCH (08:21)
[2022-12-25] MEDS: DIVALPROEX SODIUM 250 MG DR TABLET PO SCH ×2 (08:21→16:39)
[2022-12-25] MEDS: BusPIRone HCL 15 MG TABLET PO SCH ×2 (08:21→16:39)
[2022-12-25] MEDS: PHENYTOIN SODIUM 100 MG ER CAPSULE PO SCH (08:21)
[2022-12-25] MEDS: LORazepam 2 MG TABLET PO PRN ×4 (08:22→21:34)
[2022-12-25] MEDS: HALOPERIDOL 5 MG TABLET PO PRN ×2 (08:22→13:31)
[2022-12-25 09:05] VITALS: BP 94/68; PULSE 82; RESP 16; TEMP 97.3; O2SAT 100
[2022-12-25] MEDS: LORazepam 0.5 MG TABLET PO SCH (16:39)
[2022-12-25 21:28] VITALS: BP 97/69; PULSE 69; RESP 16; TEMP 97.6; O2SAT 100
[2022-12-25] MEDS: QUEtiapine FUMARATE 300 MG TABLET PO SCH (21:33)
[2022-12-26] MEDS: MULTIVITAMINS WITH MINERALS, THERAPEUTIC TABLET PO SCH (08:16)
[2022-12-26] MEDS: DIVALPROEX SODIUM 250 MG DR TABLET PO SCH ×2 (08:16→17:04)
[2022-12-26] MEDS: QUEtiapine FUMARATE 200 MG TABLET PO SCH ×2 (08:16→17:05)
[2022-12-26] MEDS: PHENYTOIN SODIUM 100 MG ER CAPSULE PO SCH (08:16)
[2022-12-26] MEDS: LORazepam 0.5 MG TABLET PO SCH ×3 (08:17→17:04)
[2022-12-26] MEDS: PERPHENAZINE 8 MG TABLET PO SCH ×3 (08:17→17:04)
[2022-12-26] MEDS: BusPIRone HCL 15 MG TABLET PO SCH ×2 (08:17→17:04)
[2022-12-26] MEDS: HALOPERIDOL 5 MG TABLET PO PRN ×3 (08:17→19:23)
[2022-12-26] MEDS: VENLAFAXINE HCL 150 MG ER CAPSULE PO SCH (08:18)
[2022-12-26 08:27] VITALS: BP 115/66; PULSE 84; RESP 17; TEMP 97.9; O2SAT 97
[2022-12-26] MEDS: LORazepam 2 MG TABLET PO PRN ×2 (14:15→19:24)
[2022-12-26 20:11] VITALS: BP 110/70; PULSE 80; RESP 19; TEMP 97.8; O2SAT 97
[2022-12-26] MEDS: QUEtiapine FUMARATE 300 MG TABLET PO SCH (20:14)
[2022-12-27 08:24] VITALS: BP 107/66; PULSE 80; RESP 16; TEMP 97.7; O2SAT 99
[2022-12-27] MEDS: LORazepam 0.5 MG TABLET PO SCH ×3 (08:33→16:37)
[2022-12-27] MEDS: PHENYTOIN SODIUM 100 MG ER CAPSULE PO SCH (08:33)
[2022-12-27] MEDS: QUEtiapine FUMARATE 200 MG TABLET PO SCH ×2 (08:33→16:37)
[2022-12-27] MEDS: VENLAFAXINE HCL 150 MG ER CAPSULE PO SCH (08:33)
[2022-12-27] MEDS: PERPHENAZINE 8 MG TABLET PO SCH ×3 (08:33→16:37)
[2022-12-27] MEDS: MULTIVITAMINS WITH MINERALS, THERAPEUTIC TABLET PO SCH (08:33)
[2022-12-27] MEDS: BusPIRone HCL 15 MG TABLET PO SCH ×2 (08:36→16:37)
[2022-12-27] MEDS: DIVALPROEX SODIUM 250 MG DR TABLET PO SCH ×2 (08:36→16:37)
[2022-12-27] MEDS: HALOPERIDOL 5 MG TABLET PO PRN ×2 (08:37→20:22)
[2022-12-27 20:19] VITALS: BP 114/64; PULSE 89; RESP 18; TEMP 97.7; O2SAT 98
[2022-12-27] MEDS: LORazepam 2 MG TABLET PO PRN (20:22)
[2022-12-27] MEDS: QUEtiapine FUMARATE 300 MG TABLET PO SCH (20:22)
[2022-12-28] MEDS: MULTIVITAMINS WITH MINERALS, THERAPEUTIC TABLET PO SCH (08:10)
[2022-12-28] MEDS: VENLAFAXINE HCL 150 MG ER CAPSULE PO SCH (08:10)
[2022-12-28] MEDS: BusPIRone HCL 15 MG TABLET PO SCH ×2 (08:10→16:04)
[2022-12-28] MEDS: LORazepam 0.5 MG TABLET PO SCH ×3 (08:10→16:03)
[2022-12-28] MEDS: PHENYTOIN SODIUM 100 MG ER CAPSULE PO SCH (08:11)
[2022-12-28] MEDS: PERPHENAZINE 8 MG TABLET PO SCH ×3 (08:11→16:05)
[2022-12-28] MEDS: DIVALPROEX SODIUM 250 MG DR TABLET PO SCH ×2 (08:11→16:04)
[2022-12-28] MEDS: QUEtiapine FUMARATE 200 MG TABLET PO SCH ×2 (08:11→16:03)
[2022-12-28 09:13] VITALS: BP 105/63; PULSE 93; RESP 17; TEMP 97.7; O2SAT 96
[2022-12-28] MEDS: LORazepam 2 MG TABLET PO PRN (17:18)
[2022-12-28 20:35] VITALS: RESP 18
[2022-12-28] MEDS: QUEtiapine FUMARATE 300 MG TABLET PO SCH (20:51)
[2022-12-29] MEDS: DIVALPROEX SODIUM 250 MG DR TABLET PO SCH ×2 (09:10→17:05)
[2022-12-29] MEDS: PHENYTOIN SODIUM 100 MG ER CAPSULE PO SCH (09:10)
[2022-12-29] MEDS: BusPIRone HCL 15 MG TABLET PO SCH ×2 (09:10→17:05)
[2022-12-29] MEDS: LORazepam 0.5 MG TABLET PO SCH ×3 (09:10→17:05)
[2022-12-29] MEDS: MULTIVITAMINS WITH MINERALS, THERAPEUTIC TABLET PO SCH (09:11)
[2022-12-29] MEDS: QUEtiapine FUMARATE 200 MG TABLET PO SCH ×2 (09:11→17:05)
[2022-12-29] MEDS: VENLAFAXINE HCL 150 MG ER CAPSULE PO SCH (09:21)
[2022-12-29] MEDS: HALOPERIDOL 5 MG TABLET PO PRN ×2 (09:21→17:05)
[2022-12-29] MEDS: LORazepam 2 MG TABLET PO PRN ×3 (09:22→21:09)
[2022-12-29] MEDS: PERPHENAZINE 8 MG TABLET PO SCH ×3 (09:26→17:05)
[2022-12-29 20:49] VITALS: BP 125/63; PULSE 99; RESP 20; TEMP 98.2; O2SAT 98
[2022-12-29] MEDS: QUEtiapine FUMARATE 300 MG TABLET PO SCH (20:57)
[2022-12-30] MEDS: MULTIVITAMINS WITH MINERALS, THERAPEUTIC TABLET PO SCH (08:24)
[2022-12-30] MEDS: PERPHENAZINE 8 MG TABLET PO SCH ×3 (08:24→17:18)
[2022-12-30] MEDS: PHENYTOIN SODIUM 100 MG ER CAPSULE PO SCH (08:24)
[2022-12-30] MEDS: LORazepam 0.5 MG TABLET PO SCH ×3 (08:24→17:18)
[2022-12-30] MEDS: QUEtiapine FUMARATE 200 MG TABLET PO SCH ×2 (08:24→17:18)
[2022-12-30] MEDS: VENLAFAXINE HCL 150 MG ER CAPSULE PO SCH (08:24)
[2022-12-30] MEDS: DIVALPROEX SODIUM 250 MG DR TABLET PO SCH ×2 (08:25→17:18)
[2022-12-30] MEDS: BusPIRone HCL 15 MG TABLET PO SCH ×2 (08:25→17:18)
[2022-12-30 08:26] VITALS: RESP 18
[2022-12-30 09:51] LABS: APPEARANCE,URINE CLEAR (CLEAR); BILIRUBIN,URINE NEGATIVE (NEGATIVE); COLOR,URINE YELLOW (YELLOW); GLUCOSE, URINE (UA) NEGATIVE (NEGATIVE); KETONES,URINE NEGATIVE (NEGATIVE); LEUKOCYTE ESTERASE ,URINE NEGATIVE (NEGATIVE); NITRATE,URINE NEGATIVE (NEGATIVE); OCCULT BLOOD,URINE NEGATIVE (NEGATIVE); PH,URINE 6.5 (5.0-8.0); PROTEIN,URINE TRACE mg/dL (NEGATIVE); SPECIFIC GRAVITIY, URINE 1.032 (1.003-1.030); UROBILINOGEN,URINE <=1.0 mg/dL (<=1.0)
[2022-12-30] MEDS: LORazepam 2 MG TABLET PO PRN ×2 (14:35→19:14)
[2022-12-30] MEDS: HALOPERIDOL 5 MG TABLET PO PRN ×2 (14:35→19:13)
[2022-12-30 20:17] VITALS: BP 120/66; PULSE 96; RESP 18; TEMP 97.8; O2SAT 98
[2022-12-30] MEDS: QUEtiapine FUMARATE 300 MG TABLET PO SCH (21:13)
[2022-12-31] MEDS: LORazepam 0.5 MG TABLET PO SCH ×3 (08:48→16:24)
[2022-12-31] MEDS: MULTIVITAMINS WITH MINERALS, THERAPEUTIC TABLET PO SCH (08:48)
[2022-12-31] MEDS: BusPIRone HCL 15 MG TABLET PO SCH ×2 (08:48→16:24)
[2022-12-31] MEDS: PERPHENAZINE 8 MG TABLET PO SCH ×3 (08:49→16:25)
[2022-12-31] MEDS: PHENYTOIN SODIUM 100 MG ER CAPSULE PO SCH (08:49)
[2022-12-31] MEDS: DIVALPROEX SODIUM 250 MG DR TABLET PO SCH ×2 (08:49→16:27)
[2022-12-31] MEDS: QUEtiapine FUMARATE 200 MG TABLET PO SCH ×2 (08:49→16:24)
[2022-12-31] MEDS: VENLAFAXINE HCL 150 MG ER CAPSULE PO SCH (08:50)
[2022-12-31] MEDS: HALOPERIDOL 5 MG TABLET PO PRN (08:50)
[2022-12-31 09:35] VITALS: RESP 20
[2022-12-31 20:11] VITALS: RESP 18
[2022-12-31] MEDS: QUEtiapine FUMARATE 300 MG TABLET PO SCH (20:27)
[2022-12-31] MEDS: LORazepam 2 MG TABLET PO PRN (20:46)
[2022-12-31] MEDS: HALOPERIDOL LACTATE 5 MG/ML VIAL IM PRN (20:47)
[2023-01-01 08:31] VITALS: RESP 18
[2023-01-01] MEDS: PHENYTOIN SODIUM 100 MG ER CAPSULE PO SCH (08:43)
[2023-01-01] MEDS: BusPIRone HCL 15 MG TABLET PO SCH ×2 (08:43→16:46)
[2023-01-01] MEDS: DIVALPROEX SODIUM 250 MG DR TABLET PO SCH ×2 (08:43→16:45)
[2023-01-01] MEDS: LORazepam 0.5 MG TABLET PO SCH ×3 (08:44→16:46)
[2023-01-01] MEDS: QUEtiapine FUMARATE 200 MG TABLET PO SCH ×2 (08:44→16:45)
[2023-01-01] MEDS: MULTIVITAMINS WITH MINERALS, THERAPEUTIC TABLET PO SCH (08:44)
[2023-01-01] MEDS: VENLAFAXINE HCL 150 MG ER CAPSULE PO SCH (08:44)
[2023-01-01] MEDS: PERPHENAZINE 8 MG TABLET PO SCH ×3 (08:45→16:46)
[2023-01-01 20:08] VITALS: RESP 20
[2023-01-01] MEDS: QUEtiapine FUMARATE 300 MG TABLET PO SCH (20:18)
[2023-01-01] MEDS: LORazepam 2 MG TABLET PO PRN (21:32)
[2023-01-02] MEDS: DIVALPROEX SODIUM 250 MG DR TABLET PO SCH ×2 (08:12→17:19)
[2023-01-02] MEDS: BusPIRone HCL 15 MG TABLET PO SCH ×2 (08:13→17:19)
[2023-01-02] MEDS: VENLAFAXINE HCL 150 MG ER CAPSULE PO SCH (08:13)
[2023-01-02] MEDS: LORazepam 0.5 MG TABLET PO SCH ×3 (08:13→17:19)
[2023-01-02] MEDS: QUEtiapine FUMARATE 200 MG TABLET PO SCH ×2 (08:13→17:19)
[2023-01-02] MEDS: MULTIVITAMINS WITH MINERALS, THERAPEUTIC TABLET PO SCH (08:13)
[2023-01-02] MEDS: PERPHENAZINE 8 MG TABLET PO SCH ×3 (08:13→17:19)
[2023-01-02] MEDS: PHENYTOIN SODIUM 100 MG ER CAPSULE PO SCH (08:13)
[2023-01-02 08:25] VITALS: BP 111/70; PULSE 89; RESP 17; TEMP 97.3; O2SAT 99
[2023-01-02 20:14] VITALS: BP 131/78; PULSE 100; RESP 20; TEMP 97.9; O2SAT 97
[2023-01-02] MEDS: QUEtiapine FUMARATE 300 MG TABLET PO SCH (20:19)
[2023-01-03 08:41] VITALS: RESP 17
[2023-01-03] MEDS: BusPIRone HCL 15 MG TABLET PO SCH ×2 (09:29→16:01)
[2023-01-03] MEDS: DIVALPROEX SODIUM 250 MG DR TABLET PO SCH ×2 (09:29→16:01)
[2023-01-03] MEDS: MULTIVITAMINS WITH MINERALS, THERAPEUTIC TABLET PO SCH (09:29)
[2023-01-03] MEDS: QUEtiapine FUMARATE 200 MG TABLET PO SCH ×2 (09:30→16:01)
[2023-01-03] MEDS: PERPHENAZINE 8 MG TABLET PO SCH ×3 (09:30→16:01)
[2023-01-03] MEDS: HALOPERIDOL 5 MG TABLET PO PRN ×2 (09:30→20:06)
[2023-01-03] MEDS: VENLAFAXINE HCL 150 MG ER CAPSULE PO SCH (09:30)
[2023-01-03] MEDS: LORazepam 0.5 MG TABLET PO SCH ×3 (09:30→16:01)
[2023-01-03] MEDS: PHENYTOIN SODIUM 100 MG ER CAPSULE PO SCH (09:31)
[2023-01-03] MEDS: QUEtiapine FUMARATE 300 MG TABLET PO SCH (20:06)
[2023-01-03 20:13] VITALS: BP 122/66; PULSE 98; RESP 20; TEMP 97.6; O2SAT 98
[2023-01-04] MEDS: MULTIVITAMINS WITH MINERALS, THERAPEUTIC TABLET PO SCH (08:07)
[2023-01-04] MEDS: PERPHENAZINE 8 MG TABLET PO SCH ×3 (08:07→16:50)
[2023-01-04] MEDS: QUEtiapine FUMARATE 200 MG TABLET PO SCH ×2 (08:07→16:50)
[2023-01-04] MEDS: DIVALPROEX SODIUM 250 MG DR TABLET PO SCH ×2 (08:07→16:50)
[2023-01-04] MEDS: LORazepam 0.5 MG TABLET PO SCH ×3 (08:07→16:50)
[2023-01-04] MEDS: PHENYTOIN SODIUM 100 MG ER CAPSULE PO SCH (08:07)
[2023-01-04] MEDS: BusPIRone HCL 15 MG TABLET PO SCH ×2 (08:07→16:50)
[2023-01-04] MEDS: VENLAFAXINE HCL 150 MG ER CAPSULE PO SCH (08:07)
[2023-01-04 08:16] VITALS: RESP 18
[2023-01-04] MEDS: HALOPERIDOL 5 MG TABLET PO PRN (16:50)
[2023-01-04 20:20] VITALS: BP 120/70; PULSE 100; RESP 20; TEMP 97.8; O2SAT 98
[2023-01-04] MEDS: QUEtiapine FUMARATE 300 MG TABLET PO SCH (20:55)
[2023-01-05] MEDS: VENLAFAXINE HCL 150 MG ER CAPSULE PO SCH (08:37)
[2023-01-05] MEDS: MULTIVITAMINS WITH MINERALS, THERAPEUTIC TABLET PO SCH (08:37)
[2023-01-05] MEDS: BusPIRone HCL 15 MG TABLET PO SCH (08:37)
[2023-01-05] MEDS: PHENYTOIN SODIUM 100 MG ER CAPSULE PO SCH (08:37)
[2023-01-05] MEDS: DIVALPROEX SODIUM 250 MG DR TABLET PO SCH (08:37)
[2023-01-05] MEDS: PERPHENAZINE 8 MG TABLET PO SCH (08:38)
[2023-01-05] MEDS: QUEtiapine FUMARATE 200 MG TABLET PO SCH (08:38)
[2023-01-05] MEDS: LORazepam 0.5 MG TABLET PO SCH (08:38)
[2023-01-05 08:46] VITALS: RESP 17
== END 2023-01-05 12:15 | DRG 885 ==
LOC: B3A 16:45
PROVIDERS: ADMIT Psychiatry & Neurology Child & Adolescent Psychiatry; ATTEND Psychiatry & Neurology Child & Adolescent Psychiatry
DX: F25.0 Schizoaffective disorder, bipolar type (principal); U07.1 COVID-19; G40.89 Other seizures; Z59.00 Homelessness unspecified; F19.10 Other psychoactive substance abuse, uncomplicated; F41.9 Anxiety disorder, unspecified; I10 Essential (primary) hypertension; D64.9 Anemia, unspecified; F10.10 Alcohol abuse, uncomplicated; Z79.899 Other long term (current) drug therapy
CPT/HCPCS: 71045; 80053; 80061; 80185; 80307; 81003; 83036; 84436; 84439; 84443; 85025; 86592; G0480; J1200; J1630; J2060; J3230; 36415-L1; 36415-TC

== ENCOUNTER 2023-01-13 21:04 | Emergency (ER) | payer MEDICARE ==
[~2023-01-13] VITALS: Ht 180.3 cm; Wt 73.0 kg
[2023-01-13 21:20] VITALS: TEMP 97.7
[2023-01-13] MEDS ORDERED: IBUPROFEN 600 MG TABLET PO ONE (22:00)
[2023-01-14 02:25] VITALS: BP 116/64; PULSE 78; RESP 16
== END 2023-01-14 02:15 | disposition home or self-care (01) ==
LOC: EMS 21:06
DX: S20.213A Contusion of bilateral front wall of thorax, initial encounter (principal); F25.1 Schizoaffective disorder, depressive type; F10.20 Alcohol dependence, uncomplicated; I10 Essential (primary) hypertension; F41.9 Anxiety disorder, unspecified; F17.210 Nicotine dependence, cigarettes, uncomplicated; F15.90 Other stimulant use, unspecified, uncomplicated; Y08.89XA Assault by other specified means, initial encounter; Y93.89 Activity, other specified; Y92.89 Other specified places as the place of occurrence of the external cause; Y99.8 Other external cause status
CPT/HCPCS: 71111; 99283

== ENCOUNTER 2023-01-30 04:04 | Emergency (ER) | payer MEDICARE, OTHER ==
[~2023-01-30] VITALS: Ht 180.3 cm; Wt 75.0 kg
[2023-01-30 05:03] VITALS: TEMP 98.2
[2023-01-30 10:45] VITALS: BP 108/71; PULSE 78; RESP 14
== END 2023-01-30 11:13 | disposition home or self-care (01) ==
LOC: EMS 04:06
DX: S01.01XA Laceration without foreign body of scalp, initial encounter (principal); F25.1 Schizoaffective disorder, depressive type; F10.20 Alcohol dependence, uncomplicated; F41.9 Anxiety disorder, unspecified; I10 Essential (primary) hypertension; F17.210 Nicotine dependence, cigarettes, uncomplicated; F15.90 Other stimulant use, unspecified, uncomplicated; W19.XXXA Unspecified fall, initial encounter; Y93.89 Activity, other specified; Y92.89 Other specified places as the place of occurrence of the external cause; Y99.8 Other external cause status
CPT/HCPCS: 12001; 70450; 72125; 99284

== ENCOUNTER 2023-02-23 11:28 | Emergency (ER) | payer MEDICARE, OTHER ==
[~2023-02-23] VITALS: Ht 180.3 cm; Wt 84.0 kg
[2023-02-23 12:15] VITALS: TEMP 98.3
[2023-02-23 17:02] VITALS: BP 112/69; PULSE 88; RESP 16
== END 2023-02-23 17:08 | disposition home or self-care (01) ==
LOC: EMS 11:28
DX: S01.01XA Laceration without foreign body of scalp, initial encounter (principal); F10.20 Alcohol dependence, uncomplicated; F41.9 Anxiety disorder, unspecified; F32.A Depression, unspecified; I10 Essential (primary) hypertension; F20.9 Schizophrenia, unspecified; F17.210 Nicotine dependence, cigarettes, uncomplicated; F15.90 Other stimulant use, unspecified, uncomplicated; Y08.89XA Assault by other specified means, initial encounter; Y93.89 Activity, other specified; Y92.89 Other specified places as the place of occurrence of the external cause; Y99.8 Other external cause status
CPT/HCPCS: 12001; 70450; 99284

== ENCOUNTER 2023-03-03 14:06 | Emergency (ER) | payer MEDICARE, OTHER ==
[~2023-03-03] VITALS: Ht 180.3 cm; Wt 77.3 kg
[2023-03-03 14:16] VITALS: TEMP 98.1
[2023-03-03 16:20] VITALS: BP 108/68; PULSE 90; RESP 16
== END 2023-03-03 18:04 ==
LOC: EMS 14:09
DX: S00.03XA Contusion of scalp, initial encounter (principal); F41.9 Anxiety disorder, unspecified; F32.A Depression, unspecified; I10 Essential (primary) hypertension; F20.9 Schizophrenia, unspecified; F17.210 Nicotine dependence, cigarettes, uncomplicated; F15.90 Other stimulant use, unspecified, uncomplicated; X58.XXXA Exposure to other specified factors, initial encounter; Y93.89 Activity, other specified; Y92.89 Other specified places as the place of occurrence of the external cause; Y99.8 Other external cause status
CPT/HCPCS: 70450; 99284

== ENCOUNTER 2023-03-12 14:23 | Emergency (ER) | payer MEDICARE, OTHER ==
[~2023-03-12] VITALS: Ht 180.3 cm; Wt 75.0 kg
[2023-03-12 14:29] VITALS: TEMP 98
[2023-03-12] MEDS ORDERED: ACETAMINOPHEN 500 MG TABLET PO ONE (15:00)
[2023-03-12] MEDS ORDERED: IBUPROFEN 600 MG TABLET PO ONE (15:00)
[2023-03-12 18:06] VITALS: BP 117/76; PULSE 79; RESP 16
== END 2023-03-12 18:07 | disposition home or self-care (01) ==
LOC: EMS 14:23
DX: S00.83XA Contusion of other part of head, initial encounter (principal); F25.9 Schizoaffective disorder, unspecified; F10.20 Alcohol dependence, uncomplicated; F41.9 Anxiety disorder, unspecified; F32.A Depression, unspecified; I10 Essential (primary) hypertension; F17.210 Nicotine dependence, cigarettes, uncomplicated; F15.90 Other stimulant use, unspecified, uncomplicated; X58.XXXA Exposure to other specified factors, initial encounter; Y93.89 Activity, other specified; Y92.89 Other specified places as the place of occurrence of the external cause; Y99.8 Other external cause status
CPT/HCPCS: 70450; 99284

== ENCOUNTER 2023-03-13 11:14 | Emergency (ER) | payer MEDICARE, OTHER ==
[~2023-03-13] VITALS: Ht 182.9 cm; Wt 88.6 kg
[2023-03-13 11:23] VITALS: BP 106/68; PULSE 76; RESP 16; TEMP 98.1
[2023-03-13] MEDS ORDERED: IBUPROFEN 600 MG TABLET PO ONE (12:00)
[2023-03-13] MEDS ORDERED: PERTUSS(ACELL),DIPH,TET VAC/PF 0.5 ML SYRINGE IM. ONE (12:00)
== END 2023-03-13 14:31 | disposition home or self-care (01) ==
LOC: EMS 11:35
DX: S00.83XA Contusion of other part of head, initial encounter (principal); S20.20XA Contusion of thorax, unspecified, initial encounter; F10.20 Alcohol dependence, uncomplicated; F41.9 Anxiety disorder, unspecified; F32.A Depression, unspecified; I10 Essential (primary) hypertension; F20.9 Schizophrenia, unspecified; F17.210 Nicotine dependence, cigarettes, uncomplicated; F15.90 Other stimulant use, unspecified, uncomplicated; X58.XXXA Exposure to other specified factors, initial encounter; Y93.89 Activity, other specified; Y92.89 Other specified places as the place of occurrence of the external cause; Y99.8 Other external cause status
CPT/HCPCS: 71045; 90471; 90715; 99283

== ENCOUNTER 2024-03-11 13:41 | Inpatient (IN) | payer MEDICARE, OTHER ==
[2024-03-11 17:04] VITALS: BP 117/79; PULSE 84; RESP 19; TEMP 98.4; O2SAT 95
[2024-03-11] MEDS: LORazepam 2 MG/ML VIAL IM ONE (17:41)
[2024-03-11] MEDS: HALOPERIDOL LACTATE 5 MG/ML VIAL IM ONE (17:42)
[2024-03-11] MEDS: DiphenhydrAMINE HCL 50 MG/ML VIAL IM ONE (17:44)
[2024-03-11] MEDS ORDERED: MORPHINE SULFATE 2 MG/ML SYRINGE IVP PRN (17:45)
[2024-03-11] MEDS ORDERED: HYDROCODONE/ACETAMINOPHEN 5-325 MG TABLET PO PRN (17:45)
[2024-03-11] MEDS ORDERED: MAGNESIUM HYDROXIDE SUSPENSION 30 ML UDCUP PO PRN (17:45)
[2024-03-11] MEDS ORDERED: ONDANSETRON HCL 4 MG/2 ML VIAL IVP PRN (17:45)
[2024-03-11] MEDS ORDERED: BISACODYL 10 MG RECTAL RECTAL SUPPOSITORY PR PRN (17:45)
[2024-03-11] MEDS ORDERED: ACETAMINOPHEN 325 MG TABLET PO PRN (17:45)
[2024-03-11] MEDS ORDERED: ZOLPIDEM TARTRATE 5 MG TABLET PO PRN (17:45)
[2024-03-11] MEDS: LACTULOSE 20 GM/30 ML SOLUTION UDCUP PO SCH (18:21)
[2024-03-11] MEDS: SODIUM CHLORIDE 0.9% 1,000 ML IV ONE (18:32)
[2024-03-11 19:30] VITALS: BP 90/56; PULSE 72; RESP 19; TEMP 97.7; O2SAT 93
[2024-03-11] MEDS ORDERED: BUSP15 PO (19:49)
[2024-03-11] MEDS ORDERED: QUET200T PO (19:49)
[2024-03-11] MEDS ORDERED: BENZ2TAB84 PO (19:49)
[2024-03-11] MEDS ORDERED: VENL-68 PO (19:49)
[2024-03-11] MEDS ORDERED: CHLO100T42 PO (19:49)
[2024-03-11] MEDS ORDERED: QUET300T2 PO (19:49)
[2024-03-11] MEDS ORDERED: DIVA-112 PO (19:49)
[2024-03-11] MEDS ORDERED: BUPR-225 PO (19:49)
[2024-03-11] MEDS: METOPROLOL TARTRATE 25 MG TABLET PO SCH (21:00)
[2024-03-11] MEDS: RIFAXIMIN 550 MG TABLET PO SCH (21:00)
[2024-03-11 23:19] VITALS: BP 139/92; PULSE 80; RESP 19; TEMP 96.9; O2SAT 98
[2024-03-11] MEDS: HEPARIN SODIUM,PORCINE 5,000 UNITS/ML VIAL SQ SCH (23:29)
[2024-03-11] MEDS: LACOSAMIDE 100 MG TABLET PO SCH (23:37)
[2024-03-11] MEDS: DOCUSATE SODIUM 100 MG CAPSULE PO SCH (23:38)
[2024-03-12 03:23] VITALS: BP 105/66; PULSE 69; RESP 18; TEMP 96.6; O2SAT 99
[2024-03-12 07:53] LABS: ANION GAP 5 mmol/L (8-16); CALCIUM, TOTAL 8.2 mg/dL (8.8-10.5); CARBON DIOXIDE 30 mmol/L (22-29); CHLORIDE 103 mmol/L (98-107); CREATININE 0.86 mg/dL (0.60-1.30); GLOMERULAR FILTR. RATE CALC > 60 mL/min (>60); GLUCOSE,RANDOM 56 mg/dL (70-110); POTASSIUM 3.9 mmol/L (3.5-5.1); SODIUM SERUM 138 mmol/L (136-145); UREA NITROGEN, BLOOD 10 mg/dL (7-18)
[2024-03-12 08:01] VITALS: BP 126/80; PULSE 80; RESP 18; TEMP 97.8; O2SAT 97
[2024-03-12 08:16] LABS: BASOPHILS % (AUTO) 0.2 % (0.0-2.0); EOSINOPHILS % (AUTO) 2.5 % (1.0-6.0); HEMATOCRIT 40.2 % (41-53); HEMOGLOBIN 13.4 g/dL (13.5-17.5); LYMPHOCYTES # (AUTO) 1.9 K/uL (1.0-4.8); LYMPHOCYTES % (AUTO) 25.2 % (22.0-44.0); MEAN CORPUSCULAR HEMOGLOBIN 32.1 pg (26.0-34.0); MEAN CORPUSCULAR HGB CONC 33.4 G/dL (31.0-37.0); MEAN CORPUSCULAR VOLUME 96 fL (80-100); MONOCYTES # (AUTO) 1.2 K/uL (0.1-1.0); MONOCYTES % (AUTO) 15.4 % (2.0-9.0); NEUTROPHILS # (AUTO) 4.3 K/uL (1.8-7.7); NEUTROPHILS % (AUTO) 56.7 % (40.0-70.0); PLATELET COUNT (AUTO) 178 K/uL (150-450); RED BLOOD CELL COUNT(AUTO) 4.17 MIL/uL (4.50-5.90); RED CELL DISTRIBUTION WIDTH 14.6 % (11.5-14.5); WHITE BLOOD COUNT (AUTO) 7.6 K/uL (4.5-11.0)
[2024-03-12] MEDS: PANTOPRAZOLE SODIUM 40 MG DR TABLET PO SCH (08:31)
[2024-03-12 11:04] LABS: PHENYTOIN (DILANTIN) 23.6 mcg/mL (10.0-20.0)
[2024-03-12 11:38] VITALS: BP 99/60; PULSE 74; RESP 18; TEMP 98.3; O2SAT 98
[2024-03-12 15:15] VITALS: BP 108/65; PULSE 65; RESP 17; TEMP 98; O2SAT 96
[2024-03-12] MEDS: QUEtiapine FUMARATE 200 MG TABLET PO SCH ×2 (15:31→21:09)
[2024-03-12] MEDS: SODIUM CHLORIDE 0.9% 1,000 ML IV ONE (15:32)
[2024-03-12] MEDS: ChlorproMAZINE HCL 100 MG TABLET PO SCH (16:55)
[2024-03-12 20:02] VITALS: BP 100/50; PULSE 70; RESP 18; TEMP 97.9; O2SAT 96
[2024-03-12] MEDS: DIVALPROEX SODIUM 500 MG DR TABLET PO SCH (20:50)
[2024-03-12] MEDS: AMANTADINE HCL 100 MG CAPSULE PO SCH (20:52)
[2024-03-12] MEDS: DIVALPROEX SODIUM 250 MG DR TABLET PO SCH (20:52)
[2024-03-12] MEDS: BusPIRone HCL 15 MG TABLET PO SCH (20:53)
[2024-03-12] MEDS ORDERED: BENZTROPINE MESYLATE 2 MG TABLET PO SCH (21:00)
[2024-03-12] MEDS ORDERED: QUEtiapine FUMARATE 300 MG TABLET PO SCH (21:00)
[2024-03-12] MEDS ORDERED: DIVALPROEX SODIUM 500 MG DR TABLET PO SCH (21:00)
[2024-03-13 04:00] VITALS: BP 98/68; PULSE 65; RESP 17; TEMP 98.1; O2SAT 96
[2024-03-13 06:35] LABS: BASOPHILS % (AUTO) 0.2 % (0.0-2.0); EOSINOPHILS % (AUTO) 2.3 % (1.0-6.0); LYMPHOCYTES % (AUTO) 30.1 % (22.0-44.0); MEAN CORPUSCULAR HEMOGLOBIN 32.1 pg (26.0-34.0); MEAN CORPUSCULAR HGB CONC 34.3 G/dL (31.0-37.0); MEAN CORPUSCULAR VOLUME 94 fL (80-100); MONOCYTES # (AUTO) 0.9 K/uL (0.1-1.0); MONOCYTES % (AUTO) 14.3 % (2.0-9.0); NEUTROPHILS # (AUTO) 3.5 K/uL (1.8-7.7); NEUTROPHILS % (AUTO) 53.1 % (40.0-70.0); PLATELET COUNT (AUTO) 205 K/uL (150-450); RED BLOOD CELL COUNT(AUTO) 3.74 MIL/uL (4.50-5.90); RED CELL DISTRIBUTION WIDTH 14.4 % (11.5-14.5); WHITE BLOOD COUNT (AUTO) 6.6 K/uL (4.5-11.0)
[2024-03-13 06:51] LABS: ANION GAP 6 mmol/L (8-16); CARBON DIOXIDE 31 mmol/L (22-29); CHLORIDE 103 mmol/L (98-107); CREATININE 0.77 mg/dL (0.60-1.30); GLOMERULAR FILTR. RATE CALC > 60 mL/min (>60); GLUCOSE,RANDOM 79 mg/dL (70-110); POTASSIUM 3.5 mmol/L (3.5-5.1); SODIUM SERUM 140 mmol/L (136-145); UREA NITROGEN, BLOOD 8 mg/dL (7-18); VALPROIC ACID 49 mcg/mL (50-100)
[2024-03-13 07:34] VITALS: BP 101/70; PULSE 71; RESP 18; TEMP 97.7; O2SAT 96
[2024-03-13] MEDS: VENLAFAXINE HCL 75 MG ER CAPSULE PO SCH (08:35)
[2024-03-13 08:36] LABS: PHENYTOIN (DILANTIN) 17.9 mcg/mL (10.0-20.0)
[2024-03-13] MEDS ORDERED: BuPROPion HCL 100 MG SR TABLET PO SCH (09:00)
[2024-03-13] MEDS ORDERED: VENLAFAXINE HCL 150 MG ER CAPSULE PO SCH (09:00)
[2024-03-13 12:35] VITALS: BP 109/73; PULSE 80; RESP 18; TEMP 98; O2SAT 97
[2024-03-13 16:05] VITALS: BP 105/66; PULSE 73; RESP 17; TEMP 97.5; O2SAT 96
[2024-03-13 16:39] LABS: ALBUMIN 2.3 g/dL (3.4-5.0); BILIRUBIN,DIRECT 0.2 mg/dL (0.00-0.20); BILIRUBIN,TOTAL 0.4 mg/dL (0.1-1.0); TOTAL PROTEIN, SERUM 6.2 g/dL (6.4-8.2)
[2024-03-13 19:30] VITALS: BP 119/74; PULSE 76; RESP 18; TEMP 98; O2SAT 95
[2024-03-13] MEDS: QUEtiapine FUMARATE 200 MG TABLET PO SCH (21:30)
[2024-03-13 23:21] VITALS: BP 123/68; PULSE 74; RESP 18; TEMP 98.1; O2SAT 96
[2024-03-14 05:59] VITALS: BP 103/58; PULSE 63; RESP 18; TEMP 97.8; O2SAT 96
[2024-03-14 07:19] LABS: BASOPHILS % (AUTO) 0.3 % (0.0-2.0); EOSINOPHILS % (AUTO) 2.5 % (1.0-6.0); HEMATOCRIT 36.6 % (41-53); HEMOGLOBIN 12.5 g/dL (13.5-17.5); LYMPHOCYTES # (AUTO) 2.3 K/uL (1.0-4.8); LYMPHOCYTES % (AUTO) 35.6 % (22.0-44.0); MEAN CORPUSCULAR HEMOGLOBIN 32.1 pg (26.0-34.0); MEAN CORPUSCULAR HGB CONC 34.2 G/dL (31.0-37.0); MEAN CORPUSCULAR VOLUME 94 fL (80-100); MONOCYTES # (AUTO) 0.8 K/uL (0.1-1.0); MONOCYTES % (AUTO) 11.8 % (2.0-9.0); NEUTROPHILS # (AUTO) 3.2 K/uL (1.8-7.7); NEUTROPHILS % (AUTO) 49.8 % (40.0-70.0); PLATELET COUNT (AUTO) 233 K/uL (150-450); RED CELL DISTRIBUTION WIDTH 14.3 % (11.5-14.5); WHITE BLOOD COUNT (AUTO) 6.4 K/uL (4.5-11.0)
[2024-03-14 07:26] LABS: ANION GAP 3 mmol/L (8-16); CALCIUM, TOTAL 8.1 mg/dL (8.8-10.5); CARBON DIOXIDE 31 mmol/L (22-29); CHLORIDE 108 mmol/L (98-107); CREATININE 0.78 mg/dL (0.60-1.30); GLOMERULAR FILTR. RATE CALC > 60 mL/min (>60); GLUCOSE,RANDOM 59 mg/dL (70-110); POTASSIUM 3.9 mmol/L (3.5-5.1); SODIUM SERUM 142 mmol/L (136-145); UREA NITROGEN, BLOOD 9 mg/dL (7-18)
[2024-03-14 08:10] VITALS: BP 110/80; PULSE 64; RESP 19; TEMP 98; O2SAT 97
[2024-03-14 12:30] VITALS: BP 112/76; PULSE 66; RESP 18; TEMP 97.9; O2SAT 98
[2024-03-14 13:11] LABS: COVID AG,FIA SOURCE NASAL SWAB
[2024-03-14 13:57] LABS: SARS-COV2 (COVID) ANTIGEN,FIA Negative (Negative)
[2024-03-14 15:43] VITALS: BP 108/73; PULSE 63; RESP 18; TEMP 97.8; O2SAT 98
== END 2024-03-14 19:12 | DRG 92 ==
LOC: 5N 17:00
PROVIDERS: ADMIT Internal Medicine; ATTEND Internal Medicine
DX: G92.8 Other toxic encephalopathy (principal); R45.851 Suicidal ideations; T42.0X5A Adverse effect of hydantoin derivatives, initial encounter; I10 Essential (primary) hypertension; F99 Mental disorder, not otherwise specified; Z79.899 Other long term (current) drug therapy
CPT/HCPCS: 74018; 80048; 80076; 80164; 80185; 82140; 85025; J1200; J1630; J1644; J2060; J7030; 36415-L1; 36415-TC

== ENCOUNTER 2024-07-23 22:11 | Emergency (ER) | payer MEDICARE, OTHER ==
[~2024-07-23] VITALS: Ht 180.3 cm; Wt 69.0 kg
[~2024-07-23 22:11] MED LIST changes: -ARIP10642 IM; +BENZ2TAB84 PO; +BUPR-225 PO; +CHLO100T42 PO; -DIVA-111 PO; +DIVA-112 PO; -LACO100 PO; -METO25 PO; -PHEN100C23 PO; -QUET100T PO; +QUET200T PO
[2024-07-23] MEDS: SODIUM CHLORIDE 0.9% 1,000 ML IV ONE (22:20)
[2024-07-23 22:27] LABS: BASOPHILS % (AUTO) 0.5 % (0.0-2.0); EOSINOPHILS % (AUTO) 3.2 % (1.0-6.0); HEMATOCRIT 31.4 % (41-53); HEMOGLOBIN 10.5 g/dL (13.5-17.5); LYMPHOCYTES # (AUTO) 1.1 K/uL (1.0-4.8); LYMPHOCYTES % (AUTO) 25.9 % (22.0-44.0); MEAN CORPUSCULAR HGB CONC 33.4 G/dL (31.0-37.0); MEAN CORPUSCULAR VOLUME 99 fL (80-100); MONOCYTES # (AUTO) 0.8 K/uL (0.1-1.0); MONOCYTES % (AUTO) 19.1 % (2.0-9.0); NEUTROPHILS # (AUTO) 2.2 K/uL (1.8-7.7); NEUTROPHILS % (AUTO) 51.3 % (40.0-70.0); RED BLOOD CELL COUNT(AUTO) 3.17 MIL/uL (4.50-5.90); WHITE BLOOD COUNT (AUTO) 4.3 K/uL (4.5-11.0)
[2024-07-23 22:42] LABS: ALBUMIN 2.6 g/dL (3.4-5.0); BILIRUBIN,DIRECT 0.2 mg/dL (0.00-0.20); BILIRUBIN,TOTAL 0.5 mg/dL (0.1-1.0); TOTAL PROTEIN, SERUM 5.6 g/dL (6.4-8.2)
[2024-07-23 22:43] LABS: ANION GAP 6 mmol/L (8-16); CALCIUM, TOTAL 7.9 mg/dL (8.8-10.5); CARBON DIOXIDE 32 mmol/L (22-29); CHLORIDE 107 mmol/L (98-107); CREATININE 0.87 mg/dL (0.60-1.30); GLOMERULAR FILTR. RATE CALC > 60 mL/min (>60); GLUCOSE,RANDOM 103 mg/dL (70-110); POTASSIUM 3.9 mmol/L (3.5-5.1); SODIUM SERUM 145 mmol/L (136-145); UREA NITROGEN, BLOOD 20 mg/dL (7-18)
[2024-07-23 22:49] LABS: PLATELET COUNT (AUTO) 99 K/uL (150-450); RBC MORPHOLOGY COMMENT NORMAL RBC MORPH
[2024-07-23 23:30] LABS: LACTIC ACID 0.9 mmol/L (0.4-2.0)
[2024-07-24] MEDS: MIDODRINE HCL 5 MG TABLET PO ONE (00:06)
[2024-07-24] MEDS: ALBUMIN HUMAN 25%-25GM/100ML 100 ML IV SCH (00:16)
[2024-07-24 03:43] LABS: APPEARANCE,URINE CLEAR (CLEAR); BILIRUBIN,URINE NEGATIVE (NEGATIVE); COLOR,URINE YELLOW (YELLOW); GLUCOSE, URINE (UA) NEGATIVE (NEGATIVE); KETONES,URINE TRACE mg/dL (NEGATIVE); LEUKOCYTE ESTERASE ,URINE NEGATIVE (NEGATIVE); NITRATE,URINE NEGATIVE (NEGATIVE); OCCULT BLOOD,URINE NEGATIVE (NEGATIVE); PROTEIN,URINE 30-70 mg/dL (NEGATIVE); SPECIFIC GRAVITIY, URINE 1.033 (1.003-1.030)
[2024-07-24 06:00] VITALS: TEMP 97.9
[2024-07-24 12:56] VITALS: BP 99/69; PULSE 86; RESP 15; O2SAT 100
== END 2024-07-24 15:38 | disposition home or self-care (01) ==
LOC: EMS 22:12
DX: I95.9 Hypotension, unspecified (principal); E86.0 Dehydration; E43 Unspecified severe protein-calorie malnutrition; F41.9 Anxiety disorder, unspecified; I10 Essential (primary) hypertension; F32.A Depression, unspecified; F17.210 Nicotine dependence, cigarettes, uncomplicated; F15.90 Other stimulant use, unspecified, uncomplicated; F20.9 Schizophrenia, unspecified; Z79.899 Other long term (current) drug therapy
CPT/HCPCS: 99285; 96365; 96361; 96366; 80048; 80076; 81003; 83605; 83690; 85025; 93005; 36415; J7030; P9046